=== PATIENT | female | born 1955 | race African-American/Black ===

== ENCOUNTER 2017-08-21 22:03 | Emergency (ER) | payer BC, OTHER ==
[2017-08-21 22:13] VITALS: BMI 29.2
--- NOTE | 2017-08-21 22:31 | DR.GENAD ---
HPI - PCP Primary Care Physician: vanesa - Complaint/Symptoms Chief Complaint:: patient states she fell in a hole a couple years ago and thinks her pain may be related to that. patient states her pain in her right leg and thigh and lower part of her back since today and the pain has gotten severe today. Self Treatment fo Chief Complaint: tylenol - Source History Provided: Patient - Mode of Arrival Mode of Arrival: Ambulatory - Timing Onset of Chief Complaint: 08/21/17 PMH - PMH Past Medical History: Yes Past Medical History: Asthma, Diabetes, Dyslipidemia, Hypertension Past Surgical History: Yes Surgical History: Hysterectomy, Other Past Surgical History Comment: hysterectomy, foot surgery - Family History History of Family Medical Conditions: Yes Family Medical History: Diabetes Mellitus, Cancer, [place], Hypertension - Social History Alcohol Use: None Do you use any recreational Drugs:: No Lives With: Family Lives Where: Home - infectious screening In the last 2 months have you had wt loss of >10#?: NO Have you had fever, night sweats or hemotysis?: No Have you traveled outside the country in the last 6 months?: No Isolation: Standard ROS - Review of Systems Eyes: No Symptoms Reported ENTM: No Symptoms Reported Respiratoy: No Symptoms Reported Cardiovascular: No Symptoms Reported Gastrointestinal/Abdominal: No Symptoms Reported Genitourinary: No Symptoms Reported Neurological: No Symptoms Reported Musculoskeletal: Joint Pain (right hip) Integumentary: No Symptoms Reported Hematologic/Lymphatic: No Symptoms Reported Endocrine: No Symptoms Reported Psychiatric: No Symptoms Reported All Other Systems: Reviewed and Negative PE - Vital Signs Vitals: Temperature 98.5 F Pulse Rate 85 Respiratory Rate 16 Blood Pressure [Left Arm] 153/78 Blood Pressure [Right Arm] 164/90 Blood Pressure 184/107 O2 Sat by Pulse Oximetry 96 - General General Appearance: Alert, In No Apparent Distress - Head Head Exam: Normal Inspection, Atraumatic - Eyes Eye exam: Normal Appearance, PERRL, EOMI - ENT ENT Exam: Normal Exam External Ear Exam: Normal External Inspection TM/Canal Exam: Bilateral Normal Nose Exam: Normal Nose Exam Mouth Exam: Normal Inspection Throat Exam: Normal Inspection - Neck Neck Exam: Normal Inspection, Full ROM - Chest Chest Inspection: Normal Inspection - Respiratory Respiratory Exam: Normal Lung Sounds Bilat Respiratory Exam: Bilateral Clear to Auscultation - Cardiovascular Cardiovascular Exam: Regular Rate, Normal Rhythm - Abdominal Exam Abdominal Exam: Normal Inspection, Normal Bowel Sounds Abdominal Tenderness: negative: RUQ, RLQ, LUQ, LLQ, Epigastrium, Suprapubic, Diffuse, Mild, Moderate, Severe, Other - Extremities Extremities Exam: Normal Inspection, Tenderness (admits to pain of right hip joint, decrease ROM the lower extremity) - Back Back Exam: Normal Inspection, Full ROM - Neurologic Neurological Exam: Alert, Oriented X3, CN II-XII Intact - Psychiatric Psychiatric Exam: Normal Affect, Normal Mood - Skin Skin Exam: Warm, Dry, Intact - Diagnosis Discharge Problem: Osteoarthritis Qualifiers: Osteoarthritis location: hip Osteoarthritis type: unspecified Laterality: right Qualified Code(s): M16.11 - Unilateral primary osteoarthritis, right hip - Discharge Plan Condition: Stable - Follow ups/Referrals Follow ups/Referrals: NFD,None [Primary Care Provider] - 3 days - Instructions
[2017-08-21] MEDS ORDERED: TORADOL 60 MG VIAL IM ONE (22:37)
[2017-08-21] MEDS ORDERED: TORADOL 60 MG VIAL ONE (22:38)
[2017-08-21] MEDS ORDERED: CATAPRES TAB 0.2 MG ONE (22:49)
[2017-08-21] MEDS ORDERED: CATAPRES TAB 0.2 MG PO ONE (22:49)
[2017-08-21 23:36] VITALS: BP 163/77
== END 2017-08-21 23:33 | disposition home or self-care (01) ==
LOC: ER 22:23
DX: M16.11 Unilateral primary osteoarthritis, right hip (principal)
CPT/HCPCS: 96372; 99282; J1885

== ENCOUNTER 2017-10-01 14:36 | Emergency (ER) | payer BC ==
[2017-10-01 14:44] VITALS: BP 177/88; BMI 29.0
--- NOTE | 2017-10-01 16:28 | DR.GENAD ---
HPI - PCP Primary Care Physician: MATTIE - Complaint/Symptoms Chief Complaint Doctors Comments: Patient presented with complaint of a large bump on the left side of neck that has been present for months. Chief Complaint:: PT STATES SHE WAS COMING TO SEE SOMEONE AND DECIDED SHE SHOULD BE SEEN BY A DOCTOR DUE TO A LARGE BUMP TO HER LEFT NECK THAT STARTED OUT SMALL LIKE A BLACK HEAD AND THIS AM IT WAS LARGER AND IT IS CAUSING PAIN , AND THROAT PAIN. - Source History Provided: Patient - Mode of Arrival Mode of Arrival: Ambulatory - Timing Onset of Chief Complaint: 10/01/17 PMH - PMH Past Medical History: Yes Past Medical History: Diabetes, Hypertension Past Surgical History: No Surgical History: Hysterectomy, Other - Family History History of Family Medical Conditions: Yes Family Medical History: Diabetes Mellitus, Cancer, [place], Hypertension - Social History Does patient currently use any type of tobacco product: No Have you used tobacco products in the last 12 months: No Type of Tobacco Use: None Does any household member use tobacco: No Alcohol Use: None Do you use any recreational Drugs:: No Lives With: Family Lives Where: Home - infectious screening In the last 2 months have you had wt loss of >10#?: NO Have you had fever, night sweats or hemotysis?: No Have you traveled outside the country in the last 6 months?: No Isolation: Standard ROS - Review of Systems Constitutional: No Symptoms Reported Eyes: No Symptoms Reported ENTM: No Symptoms Reported Respiratoy: No Symptoms Reported Cardiovascular: No Symptoms Reported Gastrointestinal/Abdominal: No Symptoms Reported Genitourinary: No Symptoms Reported Neurological: No Symptoms Reported Musculoskeletal: No Symptoms Reported Integumentary: No Symptoms Reported Hematologic/Lymphatic: No Symptoms Reported Endocrine: No Symptoms Reported Psychiatric: No Symptoms Reported All Other Systems: Reviewed and Negative PE - Vital Signs Vitals: Temperature 97.2 F Pulse Rate 80 Respiratory Rate 20 Blood Pressure [Left Arm] 163/77 Blood Pressure [Right Arm] 164/90 Blood Pressure 177/88 O2 Sat by Pulse Oximetry 99 - General Limitations: No Limitations General Appearance: Alert, In No Apparent Distress - Head Head Exam: Normal Inspection, Atraumatic - Eyes Eye exam: Normal Appearance, PERRL, EOMI - ENT ENT Exam: Normal Exam External Ear Exam: Normal External Inspection TM/Canal Exam: Bilateral Normal Nose Exam: Normal Nose Exam Mouth Exam: Normal Inspection Throat Exam: Normal Inspection - Neck Neck Exam: Other (nodule left lateral neck with dark discoloration, tender to palpation.) - Chest Chest Inspection: Normal Inspection - Respiratory Respiratory Exam: Normal Lung Sounds Bilat Respiratory Exam: Bilateral Clear to Auscultation - Cardiovascular Cardiovascular Exam: Regular Rate - Abdominal Exam Abdominal Exam: Normal Inspection Abdominal Tenderness: negative: RUQ, RLQ, LUQ, LLQ, Epigastrium, Suprapubic, Diffuse, Mild, Moderate, Severe, Other - Extremities Extremities Exam: Normal Inspection, Full ROM - Back Back Exam: Normal Inspection - Neurologic Neurological Exam: CN II-XII Intact - Psychiatric Psychiatric Exam: Normal Affect - Skin Skin Exam: Warm, Dry, Intact - Diagnosis Discharge Problem: Left cervical lymphadenopathy - Discharge Plan Condition: Stable - Follow ups/Referrals Follow ups/Referrals: Gaston Christensen [Primary Care Provider] - 3 days - Instructions
== END 2017-10-01 16:31 | disposition home or self-care (01) ==
LOC: ER 14:47
DX: R59.0 Localized enlarged lymph nodes (principal)
CPT/HCPCS: 99281; 99282

== ENCOUNTER 2017-10-08 12:05 | Emergency (ER) | payer BC ==
--- NOTE | 2017-10-08 12:14 | DR.AMS ---
HPI - Time Seen Time seen: 12:10 - Complaint Cheif Complaint Doctors Comments: Patient presented to the ED for evaluation due to left arm numbness of acute onset. Upon evaluation in ED she had right sided facial droping (constriction) to the right. She complainted of left arm pain radiating down and chest pain. 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 Upon returning to the ED patient was alert in no distress. She stated that the left arm pain was due to the left lateral cervical adenopathy. PMH - PMH Past Medical History: Diabetes, Hypertension Past Surgical History: No Surgical History: Hysterectomy, Other - Family History Family Medical History: Diabetes Mellitus, Cancer, [place], Hypertension - Social History Do you use any recreational Drugs:: No ROS - Review of Systems Constitutional: See HPI Eyes: No Symptoms Reported ENTM: No Symptoms Reported Respiratoy: No Symptoms Reported Cardiovascular: No Symptoms Reported Gastrointestinal/Abdominal: No Symptoms Reported Genitourinary: No Symptoms Reported Neurological: No Symptoms Reported Musculoskeletal: No Symptoms Reported Integumentary: No Symptoms Reported Hematologic/Lymphatic: No Symptoms Reported Endocrine: No Symptoms Reported Psychiatric: No Symptoms Reported All Other Systems: Reviewed and Negative PE - Vitals Vital Signs: Pulse Pulse Resp BP BP BP Pulse Ox 10/08/17 13:23 89 22 134/100 100 10/08/17 12:05 112 H 20 221/114 97 10/01/17 14:41 177/88 08/21/17 23:35 163/77 04/15/16 12:00 164/90 - General Limitations: No Limitations General Appearance: Alert. negative: In Distress - Head Head Exam: Normal Inspection Head Exam Physical: negative: Laceration, Abrasion, Contusion, Hematoma, Raccoon Eyes, Buckner's Sign, Tenderness of Temporal Artery, CSF Rhinorrhea, CSF Otorrhea, Other - Eyes Eye exam: Normal Appearance Pupils: Regular, Round: Bilateral - ENT ENT Exam: Normal Exam, Normal Oropharynx External Ear Exam: Normal External Inspection TM/Canal Exam: Bilateral Normal Nose Exam: Normal Nose Exam, Sinus Tenderness Mouth Exam: Drooling (contraction of right corner) Throat Exam: Normal Inspection - Neck Neck Exam: Normal Inspection, Full ROM - Chest Chest Inspection: Normal Inspection - Respiratory Respiratory Exam: Normal Lung Sounds Bilat Respiratory Exam: Bilateral Clear to Auscultation - Cardiovascular Cardiovascular Exam: Regular Rate, Normal Rhythm - Abdominal Exam Abdominal Exam: Normal Inspection, Normal Bowel Sounds Abdominal Tenderness: negative: RUQ, RLQ, LUQ, LLQ, Epigastrium, Suprapubic, Diffuse, Mild, Moderate, Severe, Other - Extremities Extremities Exam: Normal Inspection - Back Back Exam: Normal Inspection - Neurological Neurological Exam: Alert, Oriented X3, CN II-XII Intact Course - Reevaluation 1st: Improved - Consultation Called: 13:50 (Dr Villanueva agreed to admit for chest pain protocol) ROR - Labs Reviewed Result Diagrams: 10/08/17 12:38 10/08/17 12:38 Laboratory: WBC 4.4 X10^3/uL (3.6-10.0) 10/08/17 12:38 RBC 4.54 X10^6/uL (3.5-5.4) 10/08/17 12:38 Hgb 13.4 g/dL (12.0-16.0) 10/08/17 12:38 Hct 39.6 % (36.0-47.0) 10/08/17 12:38 MCV 87.1 fL (80.0-100.0) 10/08/17 12:38 MCH 29.5 pg (27.0-34.0) 10/08/17 12:38 MCHC 33.9 g/dL (33.0-35.0) 10/08/17 12:38 RDW 13.2 % (11.6-16.5) 10/08/17 12:38 Plt Count 161 X10^3/uL (150.0-450.0) 10/08/17 12:38 MPV 8.9 fL (7.4-11.0) 10/08/17 12:38 Neut % 55.4 % (42.0-75.0) 10/08/17 12:38 Lymph % 29.3 % (21.0-51.0) 10/08/17 12:38 Bandera % 11.0 % (0.0-13.0) 10/08/17 12:38 Eos % 2.4 % (0.9-2.9) 10/08/17 12:38 Baso % 1.9 % (0.2-1.0) H 10/08/17 12:38 Neut # 2.4 x10^3/uL (2.2-4.8) 10/08/17 12:38 Lymph # 1.3 X10^3/uL (1.3-2.9) 10/08/17 12:38 Bandera # 0.5 x10^3/uL (0.3-0.8) 10/08/17 12:38 Eos # 0.1 x10^3/uL (0.0-0.2) 10/08/17 12:38 Baso # 0.1 X10^3/uL (0.0-0.1) 10/08/17 12:38 Absolute Nucleated RBC 0.0 /100WBC 10/08/17 12:38 INR Target Range - 10/08/17 12:38 INR 1.01 (0.8-1.3) 10/08/17 12:38 PTT 27.3 SECONDS (22.9-36.5) 10/08/17 12:38 PTT Comment - 10/08/17 12:38 Sodium 141 mmol/L (136-145) 10/08/17 12:38 Corrected Sodium 148 mmol/L (136-145) H 10/08/17 12:38 Potassium 4.4 mmol/L (3.5-5.1) 10/08/17 12:38 Chloride 106 mmol/L (98-107) 10/08/17 12:38 Carbon Dioxide 25.7 mmol/L (21-32) 10/08/17 12:38 BUN 18 mg/dL (7-18) 10/08/17 12:38 Creatinine 1.24 mg/dL (0.55-1.02) H 10/08/17 12:38 Est GFR (MDRD) Af Amer 56 (>60) L 10/08/17 12:38 Est GFR (MDRD) Non-Af 47 (>60) L 10/08/17 12:38 Glucose 380 mg/dL (65-99) H 10/08/17 12:38 Calcium 8.8 mg/dL (8.5-10.1) 10/08/17 12:38 Corrected Calcium TNP 10/08/17 12:38 Magnesium 2.1 mg/dL (1.7-2.9) 10/08/17 12:38 Total Bilirubin 0.40 mg/dL (0.2-1.0) 10/08/17 12:38 AST 16 Units/L (15-37) 10/08/17 12:38 ALT 28 Units/L (12-78) 10/08/17 12:38 Alkaline Phosphatase 87 Units/L (46-116) 10/08/17 12:38 Creatine Kinase 71 Units/L (26-192) 10/08/17 12:38 CK-MB (CK-2) 1.0 ng/mL (0-4.0) 10/08/17 12:38 CK/CKMB % Calc 1.4 % (<4) 10/08/17 12:38 Troponin I < 0.02 ng/mL (0-1.5) 10/08/17 12:38 Total Protein 7.2 g/dL (6.4-8.2) 10/08/17 12:38 Albumin 3.5 g/dL (3.4-5.0) 10/08/17 12:38 Globulin 3.7 g/dL (2.5-4.5) 10/08/17 12:38 Albumin/Globulin Ratio 0.9 Ratio (1.1-2.1) L 10/08/17 12:38 - XRAY XRAY Interpreted by: Radiologist (CT Brain w/o: There are no abnormal intra-or extra-axial fluid collections, midline shift, or mass effect. Santiago whie differentation is normal. Partially empty sell. Global cortical involutonal changes are present that are advanced for the patients's stated age. The ventricular system is mildly enlarged but commensurate with the degree of sulcal prominence. Periventricular and supra entricular white matter hypodensity is present that is nonspecific in appearance, but most likely to represent microvascular ischemic changes. Atherosclerotic vascular calcification is present within the carotid siphons and distal vertebral arteries. 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 The imaged paransal sinuses,mastoid air cells, and tympanic spaces are clear.) - Diagnosis Discharge Problem: Lymphadenopathy of right cervical region Chest pain Qualifiers: Chest pain type: unspecified Qualified Code(s): R07.9 - Chest pain, unspecified - Discharge Plan Condition: Stable - Follow ups/Referrals Follow ups/Referrals: Gaston Christensen [Primary Care Provider] - 3 days - Instructions
[2017-10-08 12:17] VITALS: BMI 27.4
[2017-10-08 12:49] LABS: BASOPHILS # (AUTO) 0.1 X10^3/uL (0.0-0.1); BASOPHILS % (AUTO) 1.9 % (0.2-1.0); EOSINOPHILS # (AUTO) 0.1 x10^3/uL (0.0-0.2); EOSINOPHILS % (AUTO) 2.4 % (0.9-2.9); HEMATOCRIT 39.6 % (36.0-47.0); HEMOGLOBIN 13.4 g/dL (12.0-16.0); LYMPHOCYTES # (AUTO) 1.3 X10^3/uL (1.3-2.9); LYMPHOCYTES % (AUTO) 29.3 % (21.0-51.0); MEAN CORPUSCULAR HEMOGLOBIN 29.5 pg (27.0-34.0); MEAN CORPUSCULAR HGB CONC 33.9 g/dL (33.0-35.0); MEAN CORPUSCULAR VOLUME 87.1 fL (80.0-100.0); MEAN PLATELET VOLUME 8.9 fL (7.4-11.0); MONOCYTES # (AUTO) 0.5 x10^3/uL (0.3-0.8); NEUTROPHILS # (AUTO) 2.4 x10^3/uL (2.2-4.8); NEUTROPHILS % (AUTO) 55.4 % (42.0-75.0); PLATELET COUNT 161 X10^3/uL (150.0-450.0); RED BLOOD COUNT 4.54 X10^6/uL (3.5-5.4); RED CELL DISTRIBUTION WIDTH 13.2 % (11.6-16.5); WHITE BLOOD COUNT 4.4 X10^3/uL (3.6-10.0)
--- NOTE | 2017-10-08 12:54 | CT ---
CT HEAD WITHOUT CONTRAST CLINICAL HISTORY: 62-year-old female with left-sided weakness. COMPARISON: CT head 04/14/2016. TECHNIQUE: Multiple, non-contrasted axial CT images were obtained from the skull base to the cranial vertex. Coronal and sagittal reformats were performed. FINDINGS: There are no abnormal intra- or extra-axial fluid collections, midline shift, or mass effec t. Santiago-white differentiation is normal. Partially empty sella. Global cortical involutional changes are present that are advanced for the patient's stated age. The ventricular system is mildly enlarged but commensurate with the degree of sulcal prominence. Periventricular and supraventricular white ma tter hypodensity is present that is nonspecific in appearance, but most likely to represent microvasc ular ischemic changes. Atherosclerotic vascular calcification is present within the carotid siphons a nd distal vertebral arteries. 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 The imaged paranasal sinuses, mastoid air cells, and ty mpanic spaces are clear. IMPRESSION: 1. No definite evidence of an acute intracranial process. If clinical concern persists for acute str yaw, consider MRI/MRA brain. 2. Moderate microvascular white matter ischemic changes, with associated volume loss. Reported By:
[2017-10-08 13:02] LABS: BLOOD UREA NITROGEN 18 mg/dL (7-18); CALCIUM 8.8 mg/dL (8.5-10.1); CARBON DIOXIDE 25.7 mmol/L (21-32); CHLORIDE 106 mmol/L (98-107); COR NA(FOR HYPERGLY) 148 mmol/L (136-145); CREATININE 1.24 mg/dL (0.55-1.02); SODIUM 141 mmol/L (136-145); TROPONIN I < 0.02 ng/mL (0-1.5); eGFR BLACK RACES 56 (>60); eGFR NON BLACK RACES 47 (>60)
[2017-10-08 13:06] LABS: ALANINE AMINOTRANSFERASE 28 Units/L (12-78); ALBUMIN 3.5 g/dL (3.4-5.0); ALKALINE PHOSPHATASE 87 Units/L (46-116); ASPARTATE AMINO TRANSFERASE 16 Units/L (15-37); CKMB % 1.4 % (<4); CREATINE KINASE 71 Units/L (26-192); MAGNESIUM 2.1 mg/dL (1.7-2.9); TOTAL PROTEIN 7.2 g/dL (6.4-8.2)
[2017-10-08] MEDS: HumuLIN R SUBCUT PRN ×2 (13:21→22:45)
[2017-10-08] MEDS ORDERED: NEURONTIN CAP 100 MG PO PRN (14:12)
[2017-10-08] MEDS ORDERED: NAPROSYN PO PRN (14:12)
[2017-10-08] MEDS ORDERED: ROCEPHIN VIAL 1 GM 1 GM in NS 100 ML IV + SPIKE MINIBAG* 100 ML IV SCH (14:15)
[2017-10-08] MEDS ORDERED: CATAPRES TAB 0.1 MG ONE (14:15)
[2017-10-08] MEDS ORDERED: ROCEPHIN VIAL 1 GM ONE (14:15)
[2017-10-08] MEDS: CATAPRES TAB 0.1 MG PO SCH (14:19)
[2017-10-08] MEDS: NORVASC TAB 5 MG PO SCH (15:33)
--- NOTE | 2017-10-08 15:56 | RAD ---
HISTORY: Left-sided weakness Study: Single view of the chest. Comparison: None. Findings: Mild cardiomegaly. No focal consolidations, pleural effusions or pneumothorax. Osseous structures dem onstrate no acute abnormality. IMPRESSION: 1. No acute cardiopulmonary process. Reported By:
[2017-10-08] MEDS ORDERED: XOPENEX 1.25 MG/3 ML NEBULE NEB ONE (16:15)
[2017-10-08] MEDS ORDERED: XYLOCAINE 1 % (PLAIN) ONE (16:46)
--- NOTE | 2017-10-08 17:09 | OR.GENERIC ---
Post-Op Note Generic - Post-Op Note Operative Report: PO note pt has large infected skin cyst Lt side of the neck 2 x 2 cm with associated cellulitis .. debridement and drainage was done at bed side then was packed with iodoform packing . c & s was obtained .Pt is on IV ATB.
[2017-10-08 19:22] LABS: CKMB % 1.5 % (<4); CREATINE KINASE 82 Units/L (26-192); CREATINE KINASE MB 1.2 ng/mL (0-4.0); TROPONIN I < 0.02 ng/mL (0-1.5)
[2017-10-08] MEDS ORDERED: PATIENT'S HOME MEDICATION (Atorvastatin Calcium [Lipitor] 80 MG) PO SCH (21:00)
[2017-10-08] MEDS: SNACK - Diabetic Appropriate PO SCH (22:55)
[2017-10-08] MEDS: LIPITOR TAB 40 MG PO SCH (23:00)
[2017-10-09] MEDS ORDERED: MILK OF MAGNESIA PO PRN (00:38)
[2017-10-09 01:57] LABS: CKMB % 1.1 % (<4); CREATINE KINASE 88 Units/L (26-192); TROPONIN I < 0.02 ng/mL (0-1.5)
[2017-10-09 06:18] LABS: BASOPHILS % (AUTO) 0.3 % (0.2-1.0); EOSINOPHILS # (AUTO) 0.1 x10^3/uL (0.0-0.2); EOSINOPHILS % (AUTO) 1.8 % (0.9-2.9); HEMATOCRIT 37.4 % (36.0-47.0); HEMOGLOBIN 12.8 g/dL (12.0-16.0); LYMPHOCYTES # (AUTO) 1.4 X10^3/uL (1.3-2.9); LYMPHOCYTES % (AUTO) 27.3 % (21.0-51.0); MEAN CORPUSCULAR HEMOGLOBIN 29.6 pg (27.0-34.0); MEAN CORPUSCULAR HGB CONC 34.2 g/dL (33.0-35.0); MEAN CORPUSCULAR VOLUME 86.6 fL (80.0-100.0); MEAN PLATELET VOLUME 9.1 fL (7.4-11.0); MONOCYTES # (AUTO) 0.6 x10^3/uL (0.3-0.8); MONOCYTES % (AUTO) 11.6 % (0.0-13.0); PLATELET COUNT 161 X10^3/uL (150.0-450.0); RED BLOOD COUNT 4.32 X10^6/uL (3.5-5.4); RED CELL DISTRIBUTION WIDTH 12.9 % (11.6-16.5); WHITE BLOOD COUNT 5.1 X10^3/uL (3.6-10.0)
[2017-10-09 07:09] LABS: ALANINE AMINOTRANSFERASE 25 Units/L (12-78); ALBUMIN 3.1 g/dL (3.4-5.0); ALKALINE PHOSPHATASE 73 Units/L (46-116); ASPARTATE AMINO TRANSFERASE 16 Units/L (15-37); BLOOD UREA NITROGEN 19 mg/dL (7-18); CALCIUM 8.8 mg/dL (8.5-10.1); CARBON DIOXIDE 25.1 mmol/L (21-32); CHLORIDE 106 mmol/L (98-107); CHOLESTEROL 204 mg/dL (0-200); COR CA(FOR HYPOALB) 9.5 mg/dL (8.5-10.1); CREATININE 0.84 mg/dL (0.55-1.02); HDL CHOLESTEROL 51 mg/dL (40-60); SODIUM 141 mmol/L (136-145); TOTAL PROTEIN 6.6 g/dL (6.4-8.2); TRIGLYCERIDES 92 mg/dL (0-150); eGFR BLACK RACES > 60 (>60); eGFR NON BLACK RACES > 60 (>60)
--- NOTE | 2017-10-09 07:22 | RAD ---
Examination: AP chest History: Chest pain Comparison 10/08/2017 Findings: Continued normal heart size with no evidence for pulmonary infiltrate, pneumothorax or pleu ral fluid. Impression: No acute chest findings. Reported By:
[2017-10-09] MEDS: CATAPRES TAB 0.1 MG PO SCH (08:55)
[2017-10-09] MEDS: NORVASC TAB 5 MG PO SCH (08:55)
[2017-10-09] MEDS: ROCEPHIN VIAL 1 GM 1 GM in NS 100 ML IV 100 ML IV SCH (08:55)
[2017-10-09] MEDS: ASPIRIN EC 81 MG PO SCH (08:55)
[2017-10-09] MEDS ORDERED: PATIENT'S HOME MEDICATION (Aspirin [Aspirin] 81 MG) PO SCH (09:00)
--- NOTE | 2017-10-09 21:27 | DR.H&P ---
H&P - History & Physical for Day of: H&P Date: 10/08/17 - Chief Complaint Chief Complaint: chest pain, left arm pain, cyst to left side of neck - Allergies Allergies/Adverse Reactions: Allergies Allergy/AdvReac Type Severity Reaction Status Date / Time alcohol Allergy Verified 10/01/17 14:40 - History of Present Illness History of Present Illness: is a 62 year old patient of ours who presented to the emergency room with complaints of left arm numbness, with acute onset. Patient is complaining of left arm pain that is radiating down her arm, with associated chest pain. Patient stated that the left arm pain was due to left lateral cervical adenopathy. Patient reports that two years ago she had a TIA and that 15 years ago she had a stroke that affected her right side. Upon examination, right side of the mouth is noted with drooping, drooling, and contraction of the right corner. On arrival, vitals were 98.7, 82, 18, 95%RA, 148/93. Labs were obtained. Abnormal lab values include the following: Baso% 1.9 , Corrected Sodium 148, Creatinine 1.24, GFR(AA) 56, GFR(non) 47, Glucose 380, A /G Ratio 0.9. Cardiac enzymes were negative. A chest xray was obtained. EKG reported Sinus rhythm. Heart rate=93. It reported no acute cardiopulmonary process. A brain CT was obtained. It reported no definite evidence of an acute intracranial process. If clinical concern persists for acute stroke, consider MRI/MRA brain. Moderate microvascular white matter changes, with associated volume loss. She was given Rocephin 1gm iv in the ER. We admitted patient for further treatment and evaluation. We plan to consult for I&D of the infected cyst to the left side of the neck. We plan to obtain serial cardiac enzymes and EKGs. We will follow up with AM labs and continue to monitor patient. - Past Medical History Past Medical History: Diabetes, Dyslipidemia, Hypertension Additional Medical History: Cataracts, Tinnitus, Ear Infections, Diverticulosis , Constipation - Past Surgical History Surgical History: Hysterectomy Additional Surgical History: Carpal Tunnel Right Arm - Family History Family Medical History: Diabetes Mellitus, Cancer, [place], Coronary Artery Disease, Heart Failure, Sudden Cardiac , Hypertension - Social History Does patient currently use any type of tobacco product: No Have you used tobacco products in the last 12 months: No Type of Tobacco Use: None Does any household member use tobacco: No Alcohol Use: None Drug Use: None - Review of Systems Constitutional: See HPI, Weakness Eyes: No Symptoms Reported. denies: See HPI, Pain, Vision Change, Conjunctivae Inflammation, Eyelid Inflammation, Redness, Other ENT: No Symptoms Reported. denies: See HPI, Ear Pain, Ear Discharge, Nose Pain , Nose Discharge, Nose Congestion, Mouth Pain, Mouth Swelling, Throat Pain, Throat Swelling, Other Respiratory: No Symptoms Reported. denies: See HPI, Cough, Dry, Shortness of Breath, Hemoptysis, SOB with Excertion, Pleuritic Pain, Sputum, Wheezing, Other Cardiovascular: Chest Pain, See HPI Gastrointestinal: No Symptoms Reported Genitourinary: No Symptoms Reported. denies: See HPI, Dysuria, Frequency, Incontinence, Hematuria, Retention, Other Musculoskeletal: Arm Pain (left arm pain ) Skin: Wound (cyst to left side of neck ) Neurological: See HPI, Weakness, Other (right sided facial drooping, drooling, and constriction ) - Physical Exam Vital Signs: Temperature 98.0 F Pulse Rate [Right Brachial] 61 Pulse Rate [Apical] 81 Pulse Rate 112 Respiratory Rate 20 Blood Pressure [Left Arm] 170/85 Blood Pressure [Right Arm] 163/79 Blood Pressure 221/114 O2 Sat by Pulse Oximetry 99 Oriented: Normal Eyes: Normal. negative: Blurred Vision, Diplopia, Discharge, Pain, Redness, Photophobia, Other Ear: Normal. negative: Right, Left, Swelling, Ecchymosis, Hemotypanum, Abrasion , Laceration Nose: Normal. negative: Injected, Discharge, Blood, Other Throat: Normal Respiratory: Clear Throughout Cardiovascular: Normal Auscultation: Bowel Sounds: Normal Palpation: Normal Tenderness: Normal Skin: Wound (cyst to left side neck ) Musculoskeletal: Left, Arm (weakness and pain ) Psychiatric: Normal Mood Description: Calm Affect: Normal Speech Pattern: Clear - Assessment/Plan (1) Chest pain Qualifiers: Chest pain type: unspecified Qualified Code(s): R07.9 - Chest pain, unspecified Status: Acute Plan: serial cardiac enzymes and ekg, supplemental oxygen, telemetry, continue to monitor (2) Left cervical lymphadenopathy Status: Acute Plan: consult for I&D, rocephin 1gm iv daily, continue to monitor (3) Right sided weakness Status: Acute Plan: continue to monitor
[2017-10-09] MEDS: HumuLIN R SUBCUT PRN (21:37)
[2017-10-09] MEDS: LIPITOR TAB 40 MG PO SCH (21:38)
[2017-10-10] MEDS: SNACK - Diabetic Appropriate PO SCH (00:27)
[2017-10-10 06:24] LABS: BASOPHILS % (AUTO) 0.4 % (0.2-1.0); EOSINOPHILS # (AUTO) 0.2 x10^3/uL (0.0-0.2); EOSINOPHILS % (AUTO) 4.1 % (0.9-2.9); HEMATOCRIT 39.5 % (36.0-47.0); HEMOGLOBIN 13.3 g/dL (12.0-16.0); LYMPHOCYTES # (AUTO) 2.3 X10^3/uL (1.3-2.9); MEAN CORPUSCULAR HEMOGLOBIN 29.3 pg (27.0-34.0); MEAN CORPUSCULAR HGB CONC 33.7 g/dL (33.0-35.0); MEAN CORPUSCULAR VOLUME 86.9 fL (80.0-100.0); MEAN PLATELET VOLUME 8.9 fL (7.4-11.0); MONOCYTES # (AUTO) 0.4 x10^3/uL (0.3-0.8); MONOCYTES % (AUTO) 9.8 % (0.0-13.0); NEUTROPHILS # (AUTO) 1.5 x10^3/uL (2.2-4.8); NEUTROPHILS % (AUTO) 34.7 % (42.0-75.0); PLATELET COUNT 173 X10^3/uL (150.0-450.0); RED BLOOD COUNT 4.54 X10^6/uL (3.5-5.4); RED CELL DISTRIBUTION WIDTH 12.8 % (11.6-16.5); WHITE BLOOD COUNT 4.5 X10^3/uL (3.6-10.0)
[2017-10-10 06:45] LABS: ALANINE AMINOTRANSFERASE 25 Units/L (12-78); ALKALINE PHOSPHATASE 75 Units/L (46-116); ASPARTATE AMINO TRANSFERASE 18 Units/L (15-37); BLOOD UREA NITROGEN 16 mg/dL (7-18); CALCIUM 8.6 mg/dL (8.5-10.1); CARBON DIOXIDE 25.6 mmol/L (21-32); CHLORIDE 108 mmol/L (98-107); COR CA(FOR HYPOALB) 9.4 mg/dL (8.5-10.1); CREATININE 0.68 mg/dL (0.55-1.02); SODIUM 141 mmol/L (136-145); TOTAL PROTEIN 6.6 g/dL (6.4-8.2); eGFR BLACK RACES > 60 (>60); eGFR NON BLACK RACES > 60 (>60)
[2017-10-10] MEDS: ROCEPHIN VIAL 1 GM 1 GM in NS 100 ML IV 100 ML IV SCH (09:32)
[2017-10-10] MEDS: CATAPRES TAB 0.1 MG PO SCH (09:32)
[2017-10-10] MEDS: ASPIRIN EC 81 MG PO SCH (09:32)
[2017-10-10] MEDS: NORVASC TAB 5 MG PO SCH (09:32)
[2017-10-10 16:58] VITALS: BP 109/58
--- NOTE | 2017-10-10 17:56 | PCM.PROG ---
Progress Note - Progress Note for Day of Date: 10/09/17 - Subjective Subjective: IS ALERT AND ORIENTED, SITTING UP IN BED ON MORNING ROUNDS. SHE CONTINUES WITH COMPLAINTS OF PAIN TO THE LEFT SIDE NECK AND GENERALIZED WEAKNESS. ON EXAMINATION, THERE IS A DRESSING NOTED TO LEFT SIDE NECK. IT IS DRY AND INTACT. HEART IS REGULAR IN RATE AND RHYTHM. BILATERAL LUNGS ARE NOTED TO BE CLEAR TO AUSCULTATION. ABDOMEN IS ROUND, SOFT, AND NON- TENDER WITH NORMAL BOWEL SOUNDS NOTED TO ALL QUADRANTS. NORMAL RANGE OF MOTION NOTED TO LEFT UPPER AND LOWER EXTREMITY. MILD WEAKNESS TO RIGHT SIDE EXTREMITIES. HER VITALS THIS MORNING ARE 97.8-64-20-100%-140/78. LABS WERE OBTAINED THIS MORNING. SHE REMAINS HEMODYNAMICALLY STABLE. CARDIAC ENZYMES AND EKGS HAVE BEEN NORMAL. TODAY, WE WILL CONTINUE TO MONITOR PATIENT ON TELEMETRY. WE PLAN TO FOLLOW UP WITH AM LABS AND CHEST XRAY AND CONTINUE TO MONITOR PATIENT. - Past Medical Family Social History Past Med/Fam/Surg Hx: No changes since H&P Allergies: Allergies alcohol Allergy (Verified 10/01/17 14:40) - Review of Systems ROS: No change since H&P - Vital Signs and I&O's Vital Signs: Temperature 97.9 F Pulse Rate [Right Brachial] 65 Pulse Rate [Apical] 81 Pulse Rate 112 Respiratory Rate 20 Blood Pressure [Left Arm] 170/85 Blood Pressure [Right Arm] 109/58 Blood Pressure 221/114 O2 Sat by Pulse Oximetry 96 Intake and Output: Intake & Output 10/08/17 10/09/17 10/10/17 10/11/17 11:59 11:59 11:59 11:59 Intake Total 1020 1400 360 Balance 1020 1400 360 - Physical Exam Oriented: Normal Eyes: Normal. negative: Blurred Vision, Diplopia, Discharge, Pain, Redness, Photophobia, Other Ear: Normal. negative: Right, Left, Swelling, Ecchymosis, Hemotypanum, Abrasion , Laceration Nose: Normal. negative: Injected, Discharge, Blood, Other Throat: Normal Respiratory: Normal Cardiovascular: Normal : Normal Auscultation: Bowel Sounds: Normal Palpation: Normal Tenderness: Normal Skin: Wound (cyst to left side neck ) Musculoskeletal: Left, Arm (weakness and pain ) Psychiatric: Normal Mood Description: Calm Affect: Normal Speech Pattern: Clear, Appropriate - Laboratory and Diagnostics Result Diagrams: 10/10/17 05:40 10/10/17 05:40 Labs: 10/08/17 17:00 Neck Gram Stain - Final 10/08/17 17:00 Neck Wound Culture - Preliminary Laboratory WBC 4.5 X10^3/uL (3.6-10.0) 10/10/17 05:40 RBC 4.54 X10^6/uL (3.5-5.4) 10/10/17 05:40 Hgb 13.3 g/dL (12.0-16.0) 10/10/17 05:40 Hct 39.5 % (36.0-47.0) 10/10/17 05:40 MCV 86.9 fL (80.0-100.0) 10/10/17 05:40 MCH 29.3 pg (27.0-34.0) 10/10/17 05:40 MCHC 33.7 g/dL (33.0-35.0) 10/10/17 05:40 RDW 12.8 % (11.6-16.5) 10/10/17 05:40 Plt Count 173 X10^3/uL (150.0-450.0) 10/10/17 05:40 MPV 8.9 fL (7.4-11.0) 10/10/17 05:40 Neut % 34.7 % (42.0-75.0) L 10/10/17 05:40 Lymph % 51.0 % (21.0-51.0) 10/10/17 05:40 [place] % 9.8 % (0.0-13.0) 10/10/17 05:40 Eos % 4.1 % (0.9-2.9) H 10/10/17 05:40 Baso % 0.4 % (0.2-1.0) 10/10/17 05:40 Neut # 1.5 x10^3/uL (2.2-4.8) L 10/10/17 05:40 Lymph # 2.3 X10^3/uL (1.3-2.9) 10/10/17 05:40 [place] # 0.4 x10^3/uL (0.3-0.8) 10/10/17 05:40 Eos # 0.2 x10^3/uL (0.0-0.2) 10/10/17 05:40 Baso # 0.0 X10^3/uL (0.0-0.1) 10/10/17 05:40 Absolute Nucleated RBC 0.1 /100WBC 10/10/17 05:40 INR Target Range - 10/09/17 05:15 INR 0.99 (0.8-1.3) 10/09/17 05:15 PTT 27.3 SECONDS (22.9-36.5) 10/08/17 12:38 PTT Comment - 10/08/17 12:38 Sodium 141 mmol/L (136-145) 10/10/17 05:40 Corrected Sodium TNP 10/10/17 05:40 Potassium 3.8 mmol/L (3.5-5.1) 10/10/17 05:40 Chloride 108 mmol/L (98-107) H 10/10/17 05:40 Carbon Dioxide 25.6 mmol/L (21-32) 10/10/17 05:40 BUN 16 mg/dL (7-18) 10/10/17 05:40 Creatinine 0.68 mg/dL (0.55-1.02) 10/10/17 05:40 Est GFR (MDRD) Af Amer > 60 (>60) 10/10/17 05:40 Est GFR (MDRD) Non-Af > 60 (>60) 10/10/17 05:40 Glucose 95 mg/dL (65-99) 10/10/17 05:40 POC Glucose (mg/dL) 127 mg/dL (65-99) H 10/10/17 11:07 Calcium 8.6 mg/dL (8.5-10.1) 10/10/17 05:40 Corrected Calcium 9.4 mg/dL (8.5-10.1) 10/10/17 05:40 Magnesium 2.1 mg/dL (1.7-2.9) 10/08/17 12:38 Total Bilirubin 0.50 mg/dL (0.2-1.0) 10/10/17 05:40 AST 18 Units/L (15-37) 10/10/17 05:40 ALT 25 Units/L (12-78) 10/10/17 05:40 Alkaline Phosphatase 75 Units/L (46-116) 10/10/17 05:40 Creatine Kinase 88 Units/L (26-192) 10/09/17 00:30 CK-MB (CK-2) 1.0 ng/mL (0-4.0) 10/09/17 00:30 CK/CKMB % Calc 1.1 % (<4) 10/09/17 00:30 Troponin I < 0.02 ng/mL (0-1.5) 10/09/17 00:30 Total Protein 6.6 g/dL (6.4-8.2) 10/10/17 05:40 Albumin 3.0 g/dL (3.4-5.0) L 10/10/17 05:40 Globulin 3.6 g/dL (2.5-4.5) 10/10/17 05:40 Albumin/Globulin Ratio 0.8 Ratio (1.1-2.1) L 10/10/17 05:40 Triglycerides 92 mg/dL (0-150) 10/09/17 05:15 Cholesterol 204 mg/dL (0-200) H 10/09/17 05:15 LDL Cholesterol, Calc 135 mg/dL (0-100) H 10/09/17 05:15 HDL Cholesterol 51 mg/dL (40-60) 10/09/17 05:15 Cholesterol/HDL Ratio 4.0 (0.0-5.0) 10/09/17 05:15 - Plan (1) Chest pain Status: Acute Qualifiers: Chest pain type: unspecified Qualified Code(s): R07.9 - Chest pain, unspecified Plan: serial cardiac enzymes and ekg, supplemental oxygen, telemetry, continue to monitor (2) Left cervical lymphadenopathy Status: Acute Plan: consult for I&D, rocephin 1gm iv daily, continue to monitor (3) Right sided weakness Status: Acute Plan: continue to monitor
== END 2017-10-10 15:25 | disposition home or self-care (01) ==
LOC: ER 12:05 → MED/SURG 14:25
PROVIDERS: ADMIT Internal Medicine; ATTEND Internal Medicine
PROC: 0H91XZZ Drainage of Face Skin, External Approach (ICD-10-PCS; principal; 2017-10-08)
DX: R07.89 Other chest pain (principal); L03.221 Cellulitis of neck; R59.0 Localized enlarged lymph nodes; R94.31 Abnormal electrocardiogram [ECG] [EKG]; R53.1 Weakness; L72.8 Other follicular cysts of the skin and subcutaneous tissue
CPT/HCPCS: 36415; 70450; 71045; 80053; 80061; 82550; 82553; 83735; 84484; 85025; 85610; 85730; 87070; 87075; 87205; 93005; 94760; 96365; 96372; 96374; 99284; A4216; A4222; G0378; J0696; J1815; J2001

== ENCOUNTER → 2017-11-01 | Outpatient (CLI) | payer BC ==
[2017-10-10 16:58] VITALS: BP 109/58
--- NOTE | 2017-11-02 08:52 | VAS ---
Carotid Doppler Ultrasound Examination Clinical information Angina and chest pain. Technique: Grayscale and Doppler images of the carotid arteries were performed. Findings Grayscale and color Doppler ultrasound examination of the carotid and vertebral artery systems bilate rally. Maximum peak systolic velocity (PSV) / end diastolic velocity (EDV) measurements were obtained . Right Carotid System Right Common Carotid Artery (RCCA): 59 cm/s. Ndhe-xp-utbgsuor carotid atherosclerosis. Right Internal Carotid Artery (AMY): 45 cm/s. Izqq-vx-eyrtvlth carotid atherosclerosis. Right External Carotid Artery (LECA): 101 cm/s. Ncyc-az-xgegdunu carotid atherosclerosis and intima l wall thickening appreciated. Right Vertebral Artery (RVA): Antegrade flow with normal waveform. Left Carotid System Left Common Carotid Artery (LCCA): 71 cm/s. Zvbg-je-mhusfrew carotid atherosclerosis. Left Internal Carotid Artery (LICA): 53 cm/s. Furb-kt-rpjbdbix carotid atherosclerosis observed wit h associated intimal wall thickening. Left External Carotid Artery (LECA): 73 cm/s. Bwvi-rf-knqfaief atherosclerosis. Left Vertebral Artery (LVA): Antegrade flow with normal waveform. Impression Society of Radiologists in Ultrasound (SRU) consensus statement (Radiology 2003; 229:340-346. DOI 10. 1148/radiol.[id number]) was used to estimate internal carotid artery stenosis. 1. Right internal carotid artery: No evidence for high-grade stenosis or vascular occlusion. Mild- to-moderate carotid atherosclerosis and carotid intimal wall thickening appreciated. 2. Left internal carotid artery: No evidence for high-grade stenosis or vascular occlusion. Mild-to -moderate carotid atherosclerosis and carotid intimal wall thickening appreciated. 3. Vertebral arteries: Antegrade flow with normal waveforms bilaterally. Reported By:
== END ==
LOC: RAD 13:38
PROVIDERS: ATTEND Internal Medicine
DX: I20.8 Other forms of angina pectoris (principal); R42 Dizziness and giddiness; R06.02 Shortness of breath; I10 Essential (primary) hypertension; E11.9 Type 2 diabetes mellitus without complications
CPT/HCPCS: 93306; 93880

== ENCOUNTER → 2017-11-16 | Outpatient (CLI) | payer BC ==
[~2017-11-16] MED LIST: LEXISCAN IV ONE
== END ==
LOC: RAD 08:26
PROVIDERS: ATTEND Internal Medicine
DX: I20.9 Angina pectoris, unspecified (principal); R42 Dizziness and giddiness; R06.02 Shortness of breath; I10 Essential (primary) hypertension; E11.9 Type 2 diabetes mellitus without complications; R51 Headache
CPT/HCPCS: 78452; 93017; A4222; A9502; J2785

== ENCOUNTER 2017-11-22 15:52 | Inpatient (IN) | payer BC ==
[2017-11-22 17:28] VITALS: BMI 28.5
[2017-11-22 18:24] LABS: BASOPHILS # (AUTO) 0.1 X10^3/uL (0.0-0.1); EOSINOPHILS # (AUTO) 0.3 x10^3/uL (0.0-0.2); EOSINOPHILS % (AUTO) 3.3 % (0.9-2.9); HEMATOCRIT 40.3 % (36.0-47.0); HEMOGLOBIN 13.6 g/dL (12.0-16.0); LYMPHOCYTES # (AUTO) 2.2 X10^3/uL (1.3-2.9); LYMPHOCYTES % (AUTO) 28.9 % (21.0-51.0); MEAN CORPUSCULAR HEMOGLOBIN 29.8 pg (27.0-34.0); MEAN CORPUSCULAR HGB CONC 33.9 g/dL (33.0-35.0); MEAN CORPUSCULAR VOLUME 87.9 fL (80.0-100.0); MEAN PLATELET VOLUME 8.6 fL (7.4-11.0); MONOCYTES # (AUTO) 0.7 x10^3/uL (0.3-0.8); MONOCYTES % (AUTO) 9.5 % (0.0-13.0); NEUTROPHILS # (AUTO) 4.4 x10^3/uL (2.2-4.8); NEUTROPHILS % (AUTO) 57.3 % (42.0-75.0); PLATELET COUNT 198 X10^3/uL (150.0-450.0); RED BLOOD COUNT 4.58 X10^6/uL (3.5-5.4); RED CELL DISTRIBUTION WIDTH 13.5 % (11.6-16.5); WHITE BLOOD COUNT 7.7 X10^3/uL (3.6-10.0)
[2017-11-22 18:36] LABS: ALANINE AMINOTRANSFERASE 24 Units/L (12-78); ALBUMIN 3.5 g/dL (3.4-5.0); ALKALINE PHOSPHATASE 101 Units/L (46-116); ASPARTATE AMINO TRANSFERASE 20 Units/L (15-37); BLOOD UREA NITROGEN 17 mg/dL (7-18); CALCIUM 8.9 mg/dL (8.5-10.1); CARBON DIOXIDE 28.2 mmol/L (21-32); CHLORIDE 105 mmol/L (98-107); COR NA(FOR HYPERGLY) 143 mmol/L (136-145); CREATININE 0.88 mg/dL (0.55-1.02); SODIUM 139 mmol/L (136-145); TOTAL PROTEIN 7.9 g/dL (6.4-8.2); eGFR BLACK RACES > 60 (>60); eGFR NON BLACK RACES > 60 (>60)
--- NOTE | 2017-11-22 18:57 | RAD ---
Of PA and lateral chest Indication: Cough. Comparison: 10/09/2017. Findings: Heart size is at upper limits of normal, unchanged. No focal airspace opacity, pleural effu brisa or pneumothorax. Subsegmental atelectasis/scarring within the left lung base is again noted. No acute osseous abnormality. Impression: No acute cardiopulmonary abnormality or change from prior exam. Reported By:
[2017-11-22] MEDS ORDERED: NS 1/2 1000 ML IV 1,000 ML IV ONE (19:45)
[2017-11-22] MEDS: ZITHROMAX INJ 500 MG VIAL 500 MG in NS 250 ML IV 250 ML IV SCH (20:07)
[2017-11-22] MEDS: HumuLIN R SUBCUT PRN (20:09)
[2017-11-22] MEDS: TUSSIONEX PENNKINETIC SUSP PO PRN (20:22)
[2017-11-22] MEDS: NS 1/2 1000 ML IV 1,000 ML IV SCH (20:24)
[2017-11-22] MEDS ORDERED: PATIENT'S HOME MEDICATION (Atorvastatin Calcium [Lipitor] 80 MG) PO SCH (21:00)
[2017-11-22] MEDS ORDERED: DUONEB 0.5 MG/3 MG NEB SCH (21:00)
[2017-11-22] MEDS ORDERED: PULMICORT NEB TX 0.5 MG NEB SCH (21:00)
[2017-11-22] MEDS: SNACK - Diabetic Appropriate PO SCH (21:00)
[2017-11-22] MEDS: DUONEB 0.5 MG/3 MG NEB SCH (21:07)
[2017-11-22] MEDS: PULMICORT NEB TX 0.5 MG NEB SCH (21:08)
[2017-11-22] MEDS: LEVAQUIN PREMIX IV 750 MG 750 MG/150 ML BAG IV SCH (22:00)
[2017-11-22] MEDS: ROBITUSSIN DM PO SCH (22:00)
[2017-11-22] MEDS: LIPITOR TAB 40 MG PO SCH (22:01)
[2017-11-23] MEDS: DUONEB 0.5 MG/3 MG NEB SCH ×3 (01:04→09:09)
[2017-11-23 05:54] LABS: ALANINE AMINOTRANSFERASE 24 Units/L (12-78); ALBUMIN 3.1 g/dL (3.4-5.0); ALKALINE PHOSPHATASE 89 Units/L (46-116); ASPARTATE AMINO TRANSFERASE 17 Units/L (15-37); BLOOD UREA NITROGEN 12 mg/dL (7-18); CALCIUM 8.4 mg/dL (8.5-10.1); CARBON DIOXIDE 25.5 mmol/L (21-32); CHLORIDE 103 mmol/L (98-107); COR CA(FOR HYPOALB) 9.1 mg/dL (8.5-10.1); COR NA(FOR HYPERGLY) 142 mmol/L (136-145); CREATININE 0.74 mg/dL (0.55-1.02); SODIUM 139 mmol/L (136-145); TOTAL PROTEIN 7.2 g/dL (6.4-8.2); eGFR BLACK RACES > 60 (>60); eGFR NON BLACK RACES > 60 (>60)
[2017-11-23] MEDS: HumuLIN R SUBCUT PRN ×3 (06:11→22:44)
[2017-11-23 06:19] LABS: BASOPHILS % (AUTO) 0.5 % (0.2-1.0); EOSINOPHILS # (AUTO) 0.2 x10^3/uL (0.0-0.2); EOSINOPHILS % (AUTO) 3.8 % (0.9-2.9); HEMATOCRIT 37.2 % (36.0-47.0); HEMOGLOBIN 12.5 g/dL (12.0-16.0); LYMPHOCYTES # (AUTO) 1.8 X10^3/uL (1.3-2.9); LYMPHOCYTES % (AUTO) 32.8 % (21.0-51.0); MEAN CORPUSCULAR HEMOGLOBIN 29.6 pg (27.0-34.0); MEAN CORPUSCULAR HGB CONC 33.7 g/dL (33.0-35.0); MEAN CORPUSCULAR VOLUME 87.8 fL (80.0-100.0); MEAN PLATELET VOLUME 9.2 fL (7.4-11.0); MONOCYTES # (AUTO) 0.8 x10^3/uL (0.3-0.8); NEUTROPHILS # (AUTO) 2.6 x10^3/uL (2.2-4.8); NEUTROPHILS % (AUTO) 48.9 % (42.0-75.0); PLATELET COUNT 160 X10^3/uL (150.0-450.0); RED BLOOD COUNT 4.23 X10^6/uL (3.5-5.4); RED CELL DISTRIBUTION WIDTH 13.2 % (11.6-16.5); WHITE BLOOD COUNT 5.4 X10^3/uL (3.6-10.0)
--- NOTE | 2017-11-23 07:01 | RAD ---
HISTORY: Cough Study: Chest AP portable Comparison: 11/22/2017 Findings: The heart is enlarged. No congestive heart failure is noted. No acute alveolar infiltrates or pleural effusions are identified. The bony thorax is unremarkable. IMPRESSION: Moderate cardiomegaly without congestive heart failure No infiltrates Reported By:
[2017-11-23] MEDS: ROBITUSSIN DM PO SCH ×4 (08:59→21:43)
[2017-11-23] MEDS: ZITHROMAX INJ 500 MG VIAL 500 MG in NS 250 ML IV 250 ML IV SCH (08:59)
[2017-11-23] MEDS: CATAPRES TAB 0.1 MG PO SCH (08:59)
[2017-11-23] MEDS: ASPIRIN 81 MG CHEWTAB PO SCH (08:59)
[2017-11-23] MEDS: NORVASC TAB 5 MG PO SCH (08:59)
[2017-11-23] MEDS: LEVAQUIN PREMIX IV 750 MG 750 MG/150 ML BAG IV SCH (08:59)
[2017-11-23] MEDS ORDERED: PATIENT'S HOME MEDICATION (Aspirin [Aspirin] 81 MG) PO SCH (09:00)
[2017-11-23] MEDS: PULMICORT NEB TX 0.5 MG NEB SCH ×2 (09:09→21:06)
[2017-11-23] MEDS ORDERED: VISTARIL PO PRN (09:59)
[2017-11-23] MEDS: NS 1/2 1000 ML IV 1,000 ML IV SCH ×2 (11:09→18:11)
[2017-11-23] MEDS: XOPENEX 1.25 MG/3 ML NEBULE NEB SCH ×3 (12:05→21:06)
[2017-11-23] MEDS ORDERED: NS 1/2 1000 ML IV 1,000 ML IV ONE (18:07)
[2017-11-23] MEDS: SNACK - Diabetic Appropriate PO SCH (20:30)
[2017-11-23] MEDS: LIPITOR TAB 40 MG PO SCH (21:44)
--- NOTE | 2017-11-24 06:06 | RAD ---
HISTORY: Shortness of breath Study: Chest AP portable Comparison: 11/23/2017 Findings: Heart is enlarged. No congestive heart failure is noted. The aorta is calcified. The lung mays are clear. No pleural effusions are identified. The bony thorax is unremarkable. IMPRESSION: Cardiomegaly without congestive heart failure No infiltrates Reported By:
[2017-11-24 06:27] LABS: BASOPHILS % (AUTO) 0.5 % (0.2-1.0); EOSINOPHILS # (AUTO) 0.2 x10^3/uL (0.0-0.2); EOSINOPHILS % (AUTO) 4.2 % (0.9-2.9); HEMATOCRIT 36.7 % (36.0-47.0); HEMOGLOBIN 12.5 g/dL (12.0-16.0); LYMPHOCYTES # (AUTO) 1.6 X10^3/uL (1.3-2.9); LYMPHOCYTES % (AUTO) 33.5 % (21.0-51.0); MEAN CORPUSCULAR HEMOGLOBIN 29.7 pg (27.0-34.0); MEAN CORPUSCULAR VOLUME 87.3 fL (80.0-100.0); MEAN PLATELET VOLUME 8.5 fL (7.4-11.0); MONOCYTES # (AUTO) 0.6 x10^3/uL (0.3-0.8); MONOCYTES % (AUTO) 12.5 % (0.0-13.0); NEUTROPHILS # (AUTO) 2.4 x10^3/uL (2.2-4.8); NEUTROPHILS % (AUTO) 49.3 % (42.0-75.0); PLATELET COUNT 194 X10^3/uL (150.0-450.0); RED BLOOD COUNT 4.21 X10^6/uL (3.5-5.4); RED CELL DISTRIBUTION WIDTH 13.5 % (11.6-16.5); WHITE BLOOD COUNT 4.8 X10^3/uL (3.6-10.0)
[2017-11-24 06:48] LABS: ALANINE AMINOTRANSFERASE 22 Units/L (12-78); ALBUMIN 3.2 g/dL (3.4-5.0); ALKALINE PHOSPHATASE 86 Units/L (46-116); ASPARTATE AMINO TRANSFERASE 13 Units/L (15-37); BLOOD UREA NITROGEN 11 mg/dL (7-18); CALCIUM 8.5 mg/dL (8.5-10.1); CHLORIDE 105 mmol/L (98-107); COR CA(FOR HYPOALB) 9.1 mg/dL (8.5-10.1); COR NA(FOR HYPERGLY) 143 mmol/L (136-145); CREATININE 0.68 mg/dL (0.55-1.02); SODIUM 141 mmol/L (136-145); TOTAL PROTEIN 7.1 g/dL (6.4-8.2); eGFR BLACK RACES > 60 (>60); eGFR NON BLACK RACES > 60 (>60)
--- NOTE | 2017-11-24 08:24 | DR.H&P ---
H&P - History & Physical for Day of: H&P Date: 11/22/17 - Chief Complaint Chief Complaint: ccc, fever - Allergies Allergies/Adverse Reactions: Allergies Allergy/AdvReac Type Severity Reaction Status Date / Time alcohol Allergy Verified 11/22/17 16:26 - History of Present Illness History of Present Illness: 62 BF DIRECT ADMIT FROM DR BRONSON OFFICE WITH CO CCC AND FEVER WITH WHEEZING AND SOB FOR SEVERAL DAYS. PT STATES SHE HAD HTN, DM , OA. PT STATES SHE HAS TAKEN PO ANTIBIOTICS WITHOUT IMPROVEMENT.PT STATES HER BLOOD SUGAR WAS GREATER THAN 600 ONE DAY AGO. PT IS CURRENTLY ON INSULIN FOR BLOOD SUGAR CONTROL. PT ADMITTED FOR RESP THERAPY AND EVALUATION OF SOB, CCC, ELEVATED BLOOD SUGAR. - Past Medical History Past Medical History: Diabetes, Dyslipidemia, Hypertension Additional Medical History: Cataracts, Tinnitus, Ear Infections, Diverticulosis , Constipation - Past Surgical History Surgical History: Hysterectomy Additional Surgical History: Carpal Tunnel Right Arm - Family History Family Medical History: Diabetes Mellitus, Cancer, NH, Coronary Artery Disease, Heart Failure, Sudden Cardiac , Hypertension - Social History Does patient currently use any type of tobacco product: No Have you used tobacco products in the last 12 months: No Type of Tobacco Use: None Does any household member use tobacco: No Alcohol Use: None Drug Use: None - Review of Systems Constitutional: Fever, Weakness Eyes: No Symptoms Reported ENT: No Symptoms Reported Respiratory: Cough, Shortness of Breath, SOB with Excertion, Sputum, Wheezing Cardiovascular: No Symptoms Reported Gastrointestinal: Nausea Genitourinary: No Symptoms Reported Musculoskeletal: Back Pain Skin: No Symptoms Reported Neurological: Weakness - Physical Exam Vital Signs: Temperature 98.2 F Pulse Rate [Left Brachial] 82 Pulse Rate 80 Respiratory Rate 20 Blood Pressure [Left Arm] 173/84 Blood Pressure [Right Arm] 109/58 Blood Pressure 109/58 O2 Sat by Pulse Oximetry 96 Oriented: Normal Eyes: Normal Ear: Normal Nose: Normal Throat: Normal Respiratory: Rhonchi Throughout, Wheezes Throughout Cardiovascular: Tachycardia : Normal Auscultation: Bowel Sounds: Normal Palpation: Normal Tenderness: Normal Skin: Normal Musculoskeletal: Back:Thoracic, Back:Lumbar Psychiatric: Anxiety Affect: Anxious Speech Pattern: Clear, Appropriate - Assessment/Plan (1) Acute bronchitis Status: Acute Plan: ADMIT, PNEUMONIA PROTOCOL. BLOOD AND SPUTUM CULTURES. IV ATBX, RESP, THERAPY SUPPLMENTAL O2. BLOOD SUGAR CONTROL. RESUME HOME MEDS. BP MONITORING (2) Osteoarthritis Qualifiers: Osteoarthritis location: hip Osteoarthritis type: unspecified Laterality : right Qualified Code(s): M16.11 - Unilateral primary osteoarthritis, right hip Status: Acute (3) Diabetes mellitus Qualifiers: Diabetes mellitus type: type 2 Diabetes mellitus truck terminal manager insulin use: unspecified long-term insulin use status Diabetes mellitus complication status : with unspecified complications Qualified Code(s): E11.8 - Type 2 diabetes mellitus with unspecified complications Status: Chronic (4) Hypertension Qualifiers: Hypertension type: essential hypertension Qualified Code(s): I10 - Essential (primary) hypertension Status: Chronic
[2017-11-24] MEDS: XOPENEX 1.25 MG/3 ML NEBULE NEB SCH ×4 (08:45→21:49)
[2017-11-24] MEDS: PULMICORT NEB TX 0.5 MG NEB SCH ×2 (08:45→21:49)
[2017-11-24] MEDS: ROBITUSSIN DM PO SCH ×4 (09:02→22:26)
[2017-11-24] MEDS: ASPIRIN 81 MG CHEWTAB PO SCH (09:02)
[2017-11-24] MEDS: LEVAQUIN PREMIX IV 750 MG 750 MG/150 ML BAG IV SCH (09:02)
[2017-11-24] MEDS: CATAPRES TAB 0.1 MG PO SCH (09:02)
[2017-11-24] MEDS: NORVASC TAB 5 MG PO SCH (09:02)
[2017-11-24] MEDS: ZITHROMAX INJ 500 MG VIAL 500 MG in NS 250 ML IV 250 ML IV SCH (09:02)
[2017-11-24] MEDS ORDERED: NS 1/2 1000 ML IV 1,000 ML IV ONE (10:45)
[2017-11-24] MEDS: NS 1/2 1000 ML IV 1,000 ML IV SCH (11:59)
[2017-11-24] MEDS: HumuLIN R SUBCUT PRN ×2 (12:28→22:32)
--- NOTE | 2017-11-24 13:05 | PCM.PROG ---
Progress Note - Progress Note for Day of Date: 11/23/17 - Subjective Subjective: 62 BF ADMITTED ON 11/22 WITH BRONCHITIS FAILED OUTPT TREATMENT. PT CONTINUES WITH CO CCC, PRODUCTIVE COUGH AND WHEEZING. PT STATES SHE CANNOT SLEEP AT NIGHT DUE TO COUGH. - Past Medical Family Social History Past Med/Fam/Surg Hx: No changes since H&P Allergies: Allergies alcohol Allergy (Verified 11/22/17 16:26) - Review of Systems ROS: No change since H&P - Vital Signs and I&O's Vital Signs: Temperature 98.0 F Pulse Rate [Left Brachial] 81 Pulse Rate 88 Respiratory Rate 18 Blood Pressure [Left Arm] 121/81 Blood Pressure [Right Arm] 109/58 Blood Pressure 109/58 O2 Sat by Pulse Oximetry 97 Intake and Output: Intake & Output 11/22/17 11/23/17 11/24/17 11/25/17 11:59 11:59 11:59 11:59 Intake Total 490 1588 Balance 490 1588 - Physical Exam Oriented: Normal Eyes: Normal Ear: Normal Nose: Normal Throat: Normal Respiratory: Wheezes, Rhonchi Cardiovascular: Tachycardia : Normal Auscultation: Bowel Sounds: Normal Tenderness: Normal Skin: Normal Musculoskeletal: Back:Thoracic, Back:Lumbar Psychiatric: Anxiety Affect: Anxious Speech Pattern: Clear, Appropriate - Laboratory and Diagnostics Result Diagrams: 11/24/17 05:32 11/24/17 05:32 Labs: 11/22/17 18:10 Blood Blood Culture - Preliminary 11/22/17 18:11 Sputum - Expectorated Sputum Sputum Culture - Final 11/22/17 18:11 Sputum - Expectorated Sputum - Final Laboratory WBC 4.8 X10^3/uL (3.6-10.0) 11/24/17 05:32 RBC 4.21 X10^6/uL (3.5-5.4) 11/24/17 05:32 Hgb 12.5 g/dL (12.0-16.0) 11/24/17 05:32 Hct 36.7 % (36.0-47.0) 11/24/17 05:32 MCV 87.3 fL (80.0-100.0) 11/24/17 05:32 MCH 29.7 pg (27.0-34.0) 11/24/17 05:32 MCHC 34.0 g/dL (33.0-35.0) 11/24/17 05:32 RDW 13.5 % (11.6-16.5) 11/24/17 05:32 Plt Count 194 X10^3/uL (150.0-450.0) 11/24/17 05:32 MPV 8.5 fL (7.4-11.0) 11/24/17 05:32 Neut % (Auto) 49.3 % (42.0-75.0) 11/24/17 05:32 Lymph % (Auto) 33.5 % (21.0-51.0) 11/24/17 05:32 [place] % (Auto) 12.5 % (0.0-13.0) 11/24/17 05:32 Eos % (Auto) 4.2 % (0.9-2.9) H 11/24/17 05:32 Baso % (Auto) 0.5 % (0.2-1.0) 11/24/17 05:32 Neut # (Auto) 2.4 x10^3/uL (2.2-4.8) 11/24/17 05:32 Lymph # (Auto) 1.6 X10^3/uL (1.3-2.9) 11/24/17 05:32 [place] # (Auto) 0.6 x10^3/uL (0.3-0.8) 11/24/17 05:32 Eos # (Auto) 0.2 x10^3/uL (0.0-0.2) 11/24/17 05:32 Baso # (Auto) 0.0 X10^3/uL (0.0-0.1) 11/24/17 05:32 Absolute Nucleated RBC 0.1 /100WBC 11/24/17 05:32 Sodium 141 mmol/L (136-145) 11/24/17 05:32 Corrected Sodium 143 mmol/L (136-145) 11/24/17 05:32 Potassium 3.9 mmol/L (3.5-5.1) 11/24/17 05:32 Chloride 105 mmol/L (98-107) 11/24/17 05:32 Carbon Dioxide 25.0 mmol/L (21-32) 11/24/17 05:32 BUN 11 mg/dL (7-18) 11/24/17 05:32 Creatinine 0.68 mg/dL (0.55-1.02) 11/24/17 05:32 Est GFR (MDRD) Af Amer > 60 (>60) 11/24/17 05:32 Est GFR (MDRD) Non-Af > 60 (>60) 11/24/17 05:32 Glucose 166 mg/dL (65-99) H 11/24/17 05:32 POC Glucose (mg/dL) 231 mg/dL (65-99) H 11/24/17 12:15 Calcium 8.5 mg/dL (8.5-10.1) 11/24/17 05:32 Corrected Calcium 9.1 mg/dL (8.5-10.1) 11/24/17 05:32 Total Bilirubin 0.40 mg/dL (0.2-1.0) 11/24/17 05:32 AST 13 Units/L (15-37) L 11/24/17 05:32 ALT 22 Units/L (12-78) 11/24/17 05:32 Alkaline Phosphatase 86 Units/L (46-116) 11/24/17 05:32 Total Protein 7.1 g/dL (6.4-8.2) 11/24/17 05:32 Albumin 3.2 g/dL (3.4-5.0) L 11/24/17 05:32 Globulin 3.9 g/dL (2.5-4.5) 11/24/17 05:32 Albumin/Globulin Ratio 0.8 Ratio (1.1-2.1) L 11/24/17 05:32 - Plan (1) Acute bronchitis Status: Acute Plan: PNEUMONIA PROTOCOL. BLOOD AND SPUTUM CULTURES PENDING. IV ATBX, RESP, THERAPY SUPPLMENTAL O2. BLOOD SUGAR CONTROL. BP MONITORING (2) Osteoarthritis Status: Acute Qualifiers: Osteoarthritis location: hip Osteoarthritis type: unspecified Laterality : right Qualified Code(s): M16.11 - Unilateral primary osteoarthritis, right hip (3) Diabetes mellitus Status: Chronic Qualifiers: Diabetes mellitus type: type 2 Diabetes mellitus nursing home insulin use: unspecified nursing home insulin use status Diabetes mellitus complication status : with unspecified complications Qualified Code(s): E11.8 - Type 2 diabetes mellitus with unspecified complications (4) Hypertension Status: Chronic Qualifiers: Hypertension type: essential hypertension Qualified Code(s): I10 - Essential (primary) hypertension
--- NOTE | 2017-11-24 13:06 | PCM.PROG ---
Progress Note - Progress Note for Day of Date: 11/24/17 - Subjective Subjective: 62 BF ADMITTED ON 11/22 WITH BRONCHITIS FAILED OUTPT TREATMENT. PT CONTINUES WITH CO CCC, PRODUCTIVE COUGH AND WHEEZING. PT STATES SHE CANNOT SLEEP AT NIGHT DUE TO COUGH. PT CO SORENESS TO UPPER CHEST AND UPPER BACK - Past Medical Family Social History Past Med/Fam/Surg Hx: No changes since H&P Allergies: Allergies alcohol Allergy (Verified 11/22/17 16:26) - Review of Systems ROS: No change since H&P - Vital Signs and I&O's Vital Signs: Temperature 98.0 F Pulse Rate [Left Brachial] 81 Pulse Rate 88 Respiratory Rate 18 Blood Pressure [Left Arm] 121/81 Blood Pressure [Right Arm] 109/58 Blood Pressure 109/58 O2 Sat by Pulse Oximetry 97 Intake and Output: Intake & Output 11/22/17 11/23/17 11/24/17 11/25/17 11:59 11:59 11:59 11:59 Intake Total 490 1588 Balance 490 1588 - Physical Exam Oriented: Normal Eyes: Normal Ear: Normal Nose: Normal Throat: Normal Respiratory: Wheezes, Rhonchi Cardiovascular: Tachycardia : Normal Auscultation: Bowel Sounds: Normal Tenderness: Normal Skin: Normal Musculoskeletal: Back:Thoracic, Back:Lumbar Psychiatric: Anxiety Affect: Anxious Speech Pattern: Clear, Appropriate - Laboratory and Diagnostics Result Diagrams: 11/24/17 05:32 11/24/17 05:32 Labs: 11/22/17 18:10 Blood Blood Culture - Preliminary 11/22/17 18:11 Sputum - Expectorated Sputum Sputum Culture - Final 11/22/17 18:11 Sputum - Expectorated Sputum - Final Laboratory WBC 4.8 X10^3/uL (3.6-10.0) 11/24/17 05:32 RBC 4.21 X10^6/uL (3.5-5.4) 11/24/17 05:32 Hgb 12.5 g/dL (12.0-16.0) 11/24/17 05:32 Hct 36.7 % (36.0-47.0) 11/24/17 05:32 MCV 87.3 fL (80.0-100.0) 11/24/17 05:32 MCH 29.7 pg (27.0-34.0) 11/24/17 05:32 MCHC 34.0 g/dL (33.0-35.0) 11/24/17 05:32 RDW 13.5 % (11.6-16.5) 11/24/17 05:32 Plt Count 194 X10^3/uL (150.0-450.0) 11/24/17 05:32 MPV 8.5 fL (7.4-11.0) 11/24/17 05:32 Neut % (Auto) 49.3 % (42.0-75.0) 11/24/17 05:32 Lymph % (Auto) 33.5 % (21.0-51.0) 11/24/17 05:32 [place] % (Auto) 12.5 % (0.0-13.0) 11/24/17 05:32 Eos % (Auto) 4.2 % (0.9-2.9) H 11/24/17 05:32 Baso % (Auto) 0.5 % (0.2-1.0) 11/24/17 05:32 Neut # (Auto) 2.4 x10^3/uL (2.2-4.8) 11/24/17 05:32 Lymph # (Auto) 1.6 X10^3/uL (1.3-2.9) 11/24/17 05:32 [place] # (Auto) 0.6 x10^3/uL (0.3-0.8) 11/24/17 05:32 Eos # (Auto) 0.2 x10^3/uL (0.0-0.2) 11/24/17 05:32 Baso # (Auto) 0.0 X10^3/uL (0.0-0.1) 11/24/17 05:32 Absolute Nucleated RBC 0.1 /100WBC 11/24/17 05:32 Sodium 141 mmol/L (136-145) 11/24/17 05:32 Corrected Sodium 143 mmol/L (136-145) 11/24/17 05:32 Potassium 3.9 mmol/L (3.5-5.1) 11/24/17 05:32 Chloride 105 mmol/L (98-107) 11/24/17 05:32 Carbon Dioxide 25.0 mmol/L (21-32) 11/24/17 05:32 BUN 11 mg/dL (7-18) 11/24/17 05:32 Creatinine 0.68 mg/dL (0.55-1.02) 11/24/17 05:32 Est GFR (MDRD) Af Amer > 60 (>60) 11/24/17 05:32 Est GFR (MDRD) Non-Af > 60 (>60) 11/24/17 05:32 Glucose 166 mg/dL (65-99) H 11/24/17 05:32 POC Glucose (mg/dL) 231 mg/dL (65-99) H 11/24/17 12:15 Calcium 8.5 mg/dL (8.5-10.1) 11/24/17 05:32 Corrected Calcium 9.1 mg/dL (8.5-10.1) 11/24/17 05:32 Total Bilirubin 0.40 mg/dL (0.2-1.0) 11/24/17 05:32 AST 13 Units/L (15-37) L 11/24/17 05:32 ALT 22 Units/L (12-78) 11/24/17 05:32 Alkaline Phosphatase 86 Units/L (46-116) 11/24/17 05:32 Total Protein 7.1 g/dL (6.4-8.2) 11/24/17 05:32 Albumin 3.2 g/dL (3.4-5.0) L 11/24/17 05:32 Globulin 3.9 g/dL (2.5-4.5) 11/24/17 05:32 Albumin/Globulin Ratio 0.8 Ratio (1.1-2.1) L 11/24/17 05:32 - Plan (1) Acute bronchitis Status: Acute Plan: PNEUMONIA PROTOCOL. BLOOD AND SPUTUM CULTURES PENDING. IV ATBX, RESP, THERAPY SUPPLMENTAL O2. BLOOD SUGAR CONTROL, ADD LEVEMIR DAILY. MUCOMYST AND LOW DOSE SOLU-MEDRL, ENCOURAGE ORAL HYDRATION PULMONARY TOILETING. BP MONITORING (2) Osteoarthritis Status: Acute Qualifiers: Osteoarthritis location: hip Osteoarthritis type: unspecified Laterality : right Qualified Code(s): M16.11 - Unilateral primary osteoarthritis, right hip (3) Diabetes mellitus Status: Chronic Qualifiers: Diabetes mellitus type: type 2 Diabetes mellitus shelter insulin use: unspecified shelter insulin use status Diabetes mellitus complication status : with unspecified complications Qualified Code(s): E11.8 - Type 2 diabetes mellitus with unspecified complications (4) Hypertension Status: Chronic Qualifiers: Hypertension type: essential hypertension Qualified Code(s): I10 - Essential (primary) hypertension
[2017-11-24] MEDS: MUCOMYST 20% 200 MG/ML NEB SCH ×2 (14:01→21:49)
[2017-11-24] MEDS: LEVEMIR SC SCH (16:46)
[2017-11-24] MEDS: SOLU-Medrol 40 MG VIAL IVP SCH ×2 (16:46→22:29)
[2017-11-24] MEDS: SNACK - Diabetic Appropriate PO SCH ×2 (20:30→21:00)
[2017-11-24] MEDS: LIPITOR TAB 40 MG PO SCH (22:27)
[2017-11-25] MEDS ORDERED: NS 1/2 1000 ML IV 1,000 ML IV ONE (05:26)
[2017-11-25] MEDS: SOLU-Medrol 40 MG VIAL IVP SCH (05:35)
[2017-11-25] MEDS: NS 1/2 1000 ML IV 1,000 ML IV SCH ×2 (05:35→18:10)
--- NOTE | 2017-11-25 05:44 | RAD ---
Examination: Portable AP chest History: SOB Comparison 11/24/2017 Findings: Continued normal heart size with clear lungs and pleural spaces. Impression: No change; no acute abnormality demonstrated. Reported By:
[2017-11-25] MEDS: HumuLIN R SUBCUT PRN ×2 (07:04→17:26)
[2017-11-25] MEDS: MUCOMYST 20% 200 MG/ML NEB SCH ×3 (08:40→16:40)
[2017-11-25] MEDS: PULMICORT NEB TX 0.5 MG NEB SCH ×2 (08:40→20:30)
[2017-11-25] MEDS: XOPENEX 1.25 MG/3 ML NEBULE NEB SCH ×4 (08:40→20:30)
[2017-11-25] MEDS: LEVAQUIN PREMIX IV 750 MG 750 MG/150 ML BAG IV SCH (08:57)
[2017-11-25] MEDS: CATAPRES TAB 0.1 MG PO SCH (08:58)
[2017-11-25] MEDS: NORVASC TAB 5 MG PO SCH (08:58)
[2017-11-25] MEDS: ASPIRIN 81 MG CHEWTAB PO SCH (08:59)
[2017-11-25] MEDS: ROBITUSSIN (PLAIN) PO SCH ×4 (09:58→21:15)
[2017-11-25] MEDS: LEVEMIR SC SCH (09:58)
[2017-11-25] MEDS: TESSALON PERLES PO SCH ×3 (09:58→21:14)
[2017-11-25] MEDS: ZITHROMAX INJ 500 MG VIAL 500 MG in NS 250 ML IV 250 ML IV SCH (11:30)
--- NOTE | 2017-11-25 12:05 | CT ---
HISTORY: Concern for sinusitis. Headache. Noncontrast CT examination of the paranasal sinuses. Technique: Multiple axial images of the paranasal sinuses were obtained without contrast. Findings: There is moderate nasal septal and nasal mucosal hypertrophy; findings which can be seen with allergi c rhinitis. There is no evidence for acute sinusitis or aggressive sinus disease. There is no evidenc e for sinus fungal colonization. No concerning paranasal sinus mucosal mass lesion is seen. There are findings of acute on chronic sinusitis throughout the ethmoid sinuses. There are findings of chronic , [id number], bilateral maxillary sinusitis. There is moderate narrowing of the left greater th an right ostiomeatal units for mucoperiosteal thickening. The sphenoid and frontal sinuses are relati vely clear. There is no evidence for mastoiditis. The middle ear cavities are clear bilaterally. Ther e is a right ocular/global prosthesis observed. No secondary evidence for intraorbital abscess format ion or cellulitis is seen. The nasal septum is midline. No bony spur formation is seen. The left and right frontal recess are moderately narrowed also. Visualized portions of the posterior fossa and i ntracranial structures are unremarkable as well. IMPRESSION: Imaging findings suggesting chronic rhinitis with nasal mucosal hypertrophy. Acute on chronic (diffuse & relatively severe) sinusitis throughout the ethmoid sinuses. CT findings of chronic, [id number], bilateral maxillary sinusitis. Moderate narrowing of the le ft greater than right ostiomeatal units for mucoperiosteal thickening. The sphenoid and frontal sinuses are relatively clear. There is no evidence for mastoiditis. The middle ear cavities are clear bilaterally. There is a right ocular/global prosthesis observed. No secondary evidence for intraorbital abscess formation or cellulitis is seen. Reported By:
[2017-11-25] MEDS: COZAAR PO SCH (15:09)
[2017-11-25] MEDS: FLONASE NASAL SPRAY ENOSTRIL SCH (15:09)
[2017-11-25] MEDS: GLUCOPHAGE XR PO SCH (21:14)
[2017-11-25] MEDS: NEURONTIN CAP 100 MG PO PRN (21:14)
[2017-11-25] MEDS: LIPITOR TAB 40 MG PO SCH (21:15)
[2017-11-25] MEDS: SNACK - Diabetic Appropriate PO SCH ×2 (21:17)
[2017-11-25] MEDS: COLACE CAP 100 MG PO PRN (23:08)
[2017-11-25] MEDS: MILK OF MAGNESIA PO PRN (23:08)
[2017-11-26] MEDS ORDERED: NS 1/2 1000 ML IV 1,000 ML IV ONE ×2 (00:57→18:56)
[2017-11-26] MEDS: NS 1/2 1000 ML IV 1,000 ML IV SCH ×4 (01:01→21:34)
[2017-11-26] MEDS: TUSSIONEX PENNKINETIC SUSP PO PRN (02:48)
[2017-11-26] MEDS: XOPENEX 1.25 MG/3 ML NEBULE NEB SCH ×5 (03:04→21:25)
[2017-11-26] MEDS: TESSALON PERLES PO SCH ×3 (05:43→21:36)
[2017-11-26 05:57] LABS: BASOPHILS % (AUTO) 0.1 % (0.2-1.0); EOSINOPHILS % (AUTO) 0.4 % (0.9-2.9); HEMATOCRIT 36.6 % (36.0-47.0); HEMOGLOBIN 12.6 g/dL (12.0-16.0); LYMPHOCYTES # (AUTO) 2.4 X10^3/uL (1.3-2.9); LYMPHOCYTES % (AUTO) 23.5 % (21.0-51.0); MEAN CORPUSCULAR HGB CONC 34.5 g/dL (33.0-35.0); MEAN PLATELET VOLUME 8.4 fL (7.4-11.0); MONOCYTES # (AUTO) 0.8 x10^3/uL (0.3-0.8); MONOCYTES % (AUTO) 7.9 % (0.0-13.0); NEUTROPHILS # (AUTO) 6.9 x10^3/uL (2.2-4.8); NEUTROPHILS % (AUTO) 68.1 % (42.0-75.0); PLATELET COUNT 202 X10^3/uL (150.0-450.0); RED BLOOD COUNT 4.21 X10^6/uL (3.5-5.4); RED CELL DISTRIBUTION WIDTH 13.5 % (11.6-16.5); WHITE BLOOD COUNT 10.1 X10^3/uL (3.6-10.0)
[2017-11-26 06:16] LABS: ALANINE AMINOTRANSFERASE 25 Units/L (12-78); ALBUMIN 3.2 g/dL (3.4-5.0); ALKALINE PHOSPHATASE 85 Units/L (46-116); ASPARTATE AMINO TRANSFERASE 15 Units/L (15-37); BLOOD UREA NITROGEN 20 mg/dL (7-18); CALCIUM 9.1 mg/dL (8.5-10.1); CARBON DIOXIDE 24.4 mmol/L (21-32); CHLORIDE 105 mmol/L (98-107); COR CA(FOR HYPOALB) 9.7 mg/dL (8.5-10.1); COR NA(FOR HYPERGLY) 143 mmol/L (136-145); SODIUM 141 mmol/L (136-145); TOTAL PROTEIN 7.1 g/dL (6.4-8.2); eGFR BLACK RACES > 60 (>60); eGFR NON BLACK RACES > 60 (>60)
[2017-11-26] MEDS ORDERED: MAGNESIUM SULFATE 1 GM/100 mL PREMIX 1 GM/100 ML BAG IV PRN (06:41)
[2017-11-26] MEDS ORDERED: POTASSIUM CHL 40 MEQ/NS 0.45% 500 ML IV PRN (06:41)
[2017-11-26] MEDS ORDERED: POTASSIUM CHLORIDE LIQ 20 MEQ UDC PO PRN (06:41)
[2017-11-26] MEDS ORDERED: K-LYTE EFFERVESCENT PO PRN (06:41)
[2017-11-26] MEDS ORDERED: POTASSIUM CHL 60 MEQ/NS 0.45% 500 ML IV PRN (06:41)
[2017-11-26] MEDS ORDERED: K-RIDER 10 MEQ/NS 100 ML 10 MEQ/100 ML BAG IV PRN (06:41)
[2017-11-26] MEDS: NORVASC TAB 5 MG PO SCH (08:45)
[2017-11-26] MEDS: ROBITUSSIN (PLAIN) PO SCH ×4 (08:45→21:36)
[2017-11-26] MEDS: COZAAR PO SCH (08:45)
[2017-11-26] MEDS: ASPIRIN 81 MG CHEWTAB PO SCH (08:45)
[2017-11-26] MEDS: LEVAQUIN PREMIX IV 750 MG 750 MG/150 ML BAG IV SCH (08:45)
[2017-11-26] MEDS: FLONASE NASAL SPRAY ENOSTRIL SCH (08:46)
[2017-11-26] MEDS: LEVEMIR SC SCH (08:47)
[2017-11-26] MEDS: PULMICORT NEB TX 0.5 MG NEB SCH ×2 (09:50→21:25)
[2017-11-26] MEDS: MUCOMYST 20% 200 MG/ML NEB SCH ×5 (09:51→21:25)
[2017-11-26] MEDS: ZITHROMAX INJ 500 MG VIAL 500 MG in NS 250 ML IV 250 ML IV SCH (10:59)
[2017-11-26] MEDS: ACTOS PO SCH (11:07)
[2017-11-26] MEDS: HumuLIN R SUBCUT PRN ×2 (16:59→21:36)
[2017-11-26] MEDS: SNACK - Diabetic Appropriate PO SCH (21:35)
[2017-11-26] MEDS: GLUCOPHAGE XR PO SCH (21:35)
[2017-11-26] MEDS: LIPITOR TAB 40 MG PO SCH (21:35)
[2017-11-26] MEDS: NEURONTIN CAP 100 MG PO PRN (21:37)
[2017-11-27] MEDS: TESSALON PERLES PO SCH ×3 (05:45→21:26)
[2017-11-27] MEDS: MUCOMYST 20% 200 MG/ML NEB SCH (08:35)
[2017-11-27] MEDS: PULMICORT NEB TX 0.5 MG NEB SCH ×2 (08:35→21:43)
[2017-11-27] MEDS: XOPENEX 1.25 MG/3 ML NEBULE NEB SCH ×4 (08:35→21:43)
[2017-11-27] MEDS: LEVAQUIN PREMIX IV 750 MG 750 MG/150 ML BAG IV SCH (08:38)
[2017-11-27] MEDS: ASPIRIN 81 MG CHEWTAB PO SCH (08:38)
[2017-11-27] MEDS: COZAAR PO SCH (08:38)
[2017-11-27] MEDS: NORVASC TAB 5 MG PO SCH (08:38)
[2017-11-27] MEDS: ROBITUSSIN (PLAIN) PO SCH ×4 (08:38→21:26)
[2017-11-27] MEDS: ACTOS PO SCH (08:38)
[2017-11-27] MEDS: FLONASE NASAL SPRAY ENOSTRIL SCH (08:45)
[2017-11-27] MEDS: LEVEMIR SC SCH (08:47)
[2017-11-27] MEDS: NS 1/2 1000 ML IV 1,000 ML IV SCH ×2 (08:47→19:43)
[2017-11-27] MEDS ORDERED: NS 1/2 1000 ML IV 1,000 ML IV ONE (10:03)
[2017-11-27] MEDS: ZITHROMAX INJ 500 MG VIAL 500 MG in NS 250 ML IV 250 ML IV SCH (11:30)
--- NOTE | 2017-11-27 17:49 | PCM.PROG ---
Progress Note - Progress Note for Day of Date: 11/27/17 - Subjective Subjective: 62 BF ADMITTED ON 11/22 WITH BRONCHITIS FAILED OUTPT TREATMENT. PT CONTINUES WITH CO CCC, PRODUCTIVE COUGH, WITH IMPROVING WHEEZING. PT HAD POS BLOOD CUTLURES, REVIEWED LABS WITH PT. CURRENTLY ON LEVAQUIN, WILL CONTINUE AND REPEAT SET OF BLOOD CULTURES. - Past Medical Family Social History Past Med/Fam/Surg Hx: No changes since H&P Allergies: Allergies alcohol Allergy (Verified 11/22/17 16:26) - Review of Systems ROS: No change since H&P - Vital Signs and I&O's Vital Signs: Temperature 98.4 F Pulse Rate [Right Brachial] 89 Pulse Rate [Left Brachial] 97 Pulse Rate 101 Respiratory Rate 20 Blood Pressure [Left Arm] 133/64 Blood Pressure [Right Arm] 128/70 Blood Pressure 109/58 O2 Sat by Pulse Oximetry 96 Intake and Output: Intake & Output 11/25/17 11/26/17 11/27/17 11/28/17 11:59 11:59 11:59 11:59 Intake Total 480 3514 1725 1223 Balance 480 3514 1725 1223 - Physical Exam Oriented: Normal Eyes: Normal Ear: Normal Nose: Normal Throat: Normal Respiratory: Wheezes, Rhonchi Cardiovascular: Tachycardia : Normal Auscultation: Bowel Sounds: Normal Tenderness: Normal Skin: Normal Musculoskeletal: Back:Thoracic, Back:Lumbar Psychiatric: Anxiety Affect: Anxious Speech Pattern: Clear, Appropriate - Laboratory and Diagnostics Result Diagrams: 11/26/17 04:15 11/26/17 04:15 Labs: 11/25/17 11:24 Sputum - Expectorated Sputum Sputum Culture - Final 11/25/17 11:24 Sputum - Expectorated Sputum - Final 11/22/17 18:10 Blood Blood Culture - Final Staphylococcus Hominis 11/22/17 18:08 Blood Blood Culture - Final Staphylococcus Epidermidis 11/22/17 18:11 Sputum - Expectorated Sputum Sputum Culture - Final 11/22/17 18:11 Sputum - Expectorated Sputum - Final Laboratory WBC 10.1 X10^3/uL (3.6-10.0) H 11/26/17 04:15 RBC 4.21 X10^6/uL (3.5-5.4) 11/26/17 04:15 Hgb 12.6 g/dL (12.0-16.0) 11/26/17 04:15 Hct 36.6 % (36.0-47.0) 11/26/17 04:15 MCV 87.0 fL (80.0-100.0) 11/26/17 04:15 MCH 30.0 pg (27.0-34.0) 11/26/17 04:15 MCHC 34.5 g/dL (33.0-35.0) 11/26/17 04:15 RDW 13.5 % (11.6-16.5) 11/26/17 04:15 Plt Count 202 X10^3/uL (150.0-450.0) 11/26/17 04:15 MPV 8.4 fL (7.4-11.0) 11/26/17 04:15 Neut % (Auto) 68.1 % (42.0-75.0) 11/26/17 04:15 Lymph % (Auto) 23.5 % (21.0-51.0) 11/26/17 04:15 [place] % (Auto) 7.9 % (0.0-13.0) 11/26/17 04:15 Eos % (Auto) 0.4 % (0.9-2.9) L 11/26/17 04:15 Baso % (Auto) 0.1 % (0.2-1.0) L 11/26/17 04:15 Neut # (Auto) 6.9 x10^3/uL (2.2-4.8) H 11/26/17 04:15 Lymph # (Auto) 2.4 X10^3/uL (1.3-2.9) 11/26/17 04:15 [place] # (Auto) 0.8 x10^3/uL (0.3-0.8) 11/26/17 04:15 Eos # (Auto) 0.0 x10^3/uL (0.0-0.2) 11/26/17 04:15 Baso # (Auto) 0.0 X10^3/uL (0.0-0.1) 11/26/17 04:15 Absolute Nucleated RBC 0.0 /100WBC 11/26/17 04:15 Sodium 141 mmol/L (136-145) 11/26/17 04:15 Corrected Sodium 143 mmol/L (136-145) 11/26/17 04:15 Potassium 3.5 mmol/L (3.5-5.1) 11/26/17 04:15 Chloride 105 mmol/L (98-107) 11/26/17 04:15 Carbon Dioxide 24.4 mmol/L (21-32) 11/26/17 04:15 BUN 20 mg/dL (7-18) H 11/26/17 04:15 Creatinine 0.80 mg/dL (0.55-1.02) 11/26/17 04:15 Est GFR (MDRD) Af Amer > 60 (>60) 11/26/17 04:15 Est GFR (MDRD) Non-Af > 60 (>60) 11/26/17 04:15 Glucose 189 mg/dL (65-99) H 11/26/17 04:15 POC Glucose (mg/dL) 194 mg/dL (65-99) H 11/27/17 17:14 Hemoglobin A1c 9.5 % 11/24/17 05:32 Calcium 9.1 mg/dL (8.5-10.1) 11/26/17 04:15 Corrected Calcium 9.7 mg/dL (8.5-10.1) 11/26/17 04:15 Magnesium 2.0 mg/dL (1.7-2.9) 11/26/17 04:15 Total Bilirubin 0.30 mg/dL (0.2-1.0) 11/26/17 04:15 AST 15 Units/L (15-37) 11/26/17 04:15 ALT 25 Units/L (12-78) 11/26/17 04:15 Alkaline Phosphatase 85 Units/L (46-116) 11/26/17 04:15 Total Protein 7.1 g/dL (6.4-8.2) 11/26/17 04:15 Albumin 3.2 g/dL (3.4-5.0) L 11/26/17 04:15 Globulin 3.9 g/dL (2.5-4.5) 11/26/17 04:15 Albumin/Globulin Ratio 0.8 Ratio (1.1-2.1) L 11/26/17 04:15 - Plan (1) Acute bronchitis Status: Acute Plan: CONTINUE PNEUMONIA PROTOCOL. REPEAT BLOOD CULTURES, CONTINUE IV LEVAQUIN. IV ATBX, RESP, THERAPY SUPPLMENTAL O2. BLOOD SUGAR CONTROL, LEVEMIR DAILY. MUCOMYST AND LOW DOSE SOLU-MEDRL, ENCOURAGE ORAL HYDRATION PULMONARY TOILETING. BP MONITORING (2) Osteoarthritis Status: Acute Qualifiers: Osteoarthritis location: hip Osteoarthritis type: unspecified Laterality : right Qualified Code(s): M16.11 - Unilateral primary osteoarthritis, right hip (3) Diabetes mellitus Status: Chronic Qualifiers: Diabetes mellitus type: type 2 Diabetes mellitus watermelon inspector insulin use: unspecified watermelon inspector insulin use status Diabetes mellitus complication status : with unspecified complications Qualified Code(s): E11.8 - Type 2 diabetes mellitus with unspecified complications (4) Hypertension Status: Chronic Qualifiers: Hypertension type: essential hypertension Qualified Code(s): I10 - Essential (primary) hypertension
[2017-11-27] MEDS ORDERED: TYLENOL 325 MG TAB PO PRN (20:34)
[2017-11-27] MEDS: COLACE CAP 100 MG PO PRN (21:25)
[2017-11-27] MEDS: NEURONTIN CAP 100 MG PO PRN (21:26)
[2017-11-27] MEDS: LIPITOR TAB 40 MG PO SCH (21:26)
[2017-11-27] MEDS: GLUCOPHAGE XR PO SCH (21:29)
[2017-11-27] MEDS: SNACK - Diabetic Appropriate PO SCH (21:30)
[2017-11-27] MEDS: HumuLIN R SUBCUT PRN (21:51)
[2017-11-28] MEDS ORDERED: NS 1/2 1000 ML IV 1,000 ML IV ONE (03:36)
[2017-11-28] MEDS: NS 1/2 1000 ML IV 1,000 ML IV SCH (03:39)
[2017-11-28] MEDS: TESSALON PERLES PO SCH ×2 (05:54→14:33)
[2017-11-28] MEDS: MILK OF MAGNESIA PO PRN (05:55)
[2017-11-28 06:10] LABS: BASOPHILS % (AUTO) 0.3 % (0.2-1.0); EOSINOPHILS # (AUTO) 0.1 x10^3/uL (0.0-0.2); EOSINOPHILS % (AUTO) 2.3 % (0.9-2.9); HEMATOCRIT 37.2 % (36.0-47.0); HEMOGLOBIN 12.5 g/dL (12.0-16.0); LYMPHOCYTES # (AUTO) 2.4 X10^3/uL (1.3-2.9); LYMPHOCYTES % (AUTO) 40.1 % (21.0-51.0); MEAN CORPUSCULAR HEMOGLOBIN 29.5 pg (27.0-34.0); MEAN CORPUSCULAR HGB CONC 33.6 g/dL (33.0-35.0); MEAN CORPUSCULAR VOLUME 87.7 fL (80.0-100.0); MEAN PLATELET VOLUME 8.4 fL (7.4-11.0); MONOCYTES # (AUTO) 0.6 x10^3/uL (0.3-0.8); MONOCYTES % (AUTO) 10.3 % (0.0-13.0); NEUTROPHILS # (AUTO) 2.8 x10^3/uL (2.2-4.8); PLATELET COUNT 194 X10^3/uL (150.0-450.0); RED BLOOD COUNT 4.25 X10^6/uL (3.5-5.4); RED CELL DISTRIBUTION WIDTH 13.5 % (11.6-16.5)
[2017-11-28 06:16] LABS: ALANINE AMINOTRANSFERASE 25 Units/L (12-78); ALBUMIN 3.1 g/dL (3.4-5.0); ALKALINE PHOSPHATASE 79 Units/L (46-116); ASPARTATE AMINO TRANSFERASE 17 Units/L (15-37); BLOOD UREA NITROGEN 14 mg/dL (7-18); CALCIUM 8.6 mg/dL (8.5-10.1); CARBON DIOXIDE 26.1 mmol/L (21-32); CHLORIDE 106 mmol/L (98-107); COR CA(FOR HYPOALB) 9.3 mg/dL (8.5-10.1); COR NA(FOR HYPERGLY) 142 mmol/L (136-145); CREATININE 0.76 mg/dL (0.55-1.02); SODIUM 141 mmol/L (136-145); TOTAL PROTEIN 6.6 g/dL (6.4-8.2); eGFR BLACK RACES > 60 (>60); eGFR NON BLACK RACES > 60 (>60)
[2017-11-28] MEDS: COZAAR PO SCH (08:35)
[2017-11-28] MEDS: NORVASC TAB 5 MG PO SCH (08:35)
[2017-11-28] MEDS: ROBITUSSIN (PLAIN) PO SCH ×2 (08:35→14:33)
[2017-11-28] MEDS: ACTOS PO SCH (08:35)
[2017-11-28] MEDS: ASPIRIN 81 MG CHEWTAB PO SCH (08:35)
[2017-11-28] MEDS: FLONASE NASAL SPRAY ENOSTRIL SCH (08:36)
[2017-11-28] MEDS: LEVAQUIN PREMIX IV 750 MG 750 MG/150 ML BAG IV SCH (08:38)
[2017-11-28] MEDS: XOPENEX 1.25 MG/3 ML NEBULE NEB SCH ×3 (09:00→16:56)
[2017-11-28] MEDS: PULMICORT NEB TX 0.5 MG NEB SCH (09:00)
[2017-11-28] MEDS ORDERED: COZAAR PO SCH (09:07)
[2017-11-28] MEDS: ZITHROMAX INJ 500 MG VIAL 500 MG in NS 250 ML IV 250 ML IV SCH (10:22)
[2017-11-28] MEDS: LEVEMIR SC SCH (10:23)
[2017-11-28 16:37] VITALS: BP 157/83
== END 2017-11-28 17:15 | disposition home or self-care (01) | DRG 194 ==
LOC: MED/SURG 15:52 → OBSVTOIN 15:52
PROVIDERS: ADMIT Internal Medicine; ATTEND Internal Medicine
DX: J18.8 Other pneumonia, unspecified organism (principal); J20.8 Acute bronchitis due to other specified organisms; B95.7 Other staphylococcus as the cause of diseases classified elsewhere; R78.81 Bacteremia; J01.00 Acute maxillary sinusitis, unspecified; J01.21 Acute recurrent ethmoidal sinusitis; M16.11 Unilateral primary osteoarthritis, right hip; R06.02 Shortness of breath; Z79.4 Long term (current) use of insulin; E78.2 Mixed hyperlipidemia; E11.65 Type 2 diabetes mellitus with hyperglycemia; I10 Essential (primary) hypertension
CPT/HCPCS: 36415; 70486; 71045; 71046; 80053; 83036; 83735; 85025; 87040; 87070; 87077; 87186; 87205; 94640; 94760; A4222; Q0177; 1956; J0456; J1815; J1956; J2920; J7608; J7620; J7626

== ENCOUNTER → 2017-12-27 | Outpatient (CLI) | payer BC ==
[2017-11-28 16:37] VITALS: BP 157/83
--- NOTE | 2017-12-27 11:44 | VAS ---
HISTORY: Left arm pain and swelling Study: Color-flow duplex Doppler studies were performed of the left arm Comparison: None TECHNIQUE: Multiple sullivan scale and color flow Doppler images of the venous system were obtained of t he left arm. FINDINGS: There is normal color flow and Doppler signal seen in the jugular and subclavian veins. The axillary, brachial, radial, and ulnar veins are patent and compressible throughout with no thrombus and phasic changed with augmentation throughout. IMPRESSION: No DVT seen in the left upper extremity. Reported By:
--- NOTE | 2017-12-27 14:14 | MG ---
HISTORY: SCREENING Comparison: 07/10/2013 FINDINGS: Bilateral CC and MLO projections of the right and left breast were obtained. Scattered fibroglandula r tissue is seen to be present. No significant architectural distortion, mass or clustered microcalc ifications can be observed to suggest malignancy. No skin thickening or nipple retraction is appreci ated. No pathological lymphadenopathy can be identified. Benign-appearing calcifications scattered throughout the right and left breasts are observed. There are also stable benign-appearing nodules bi laterally as well. IMPRESSION: NO RADIOGRAPHIC EVIDENCE OF MALIGNANCY. ACR CATEGORY 2 - benign findings. FOLLOW-UP EXAM 1 YEAR. Diagnostic CAD was utilized and reviewed. * 0 (ZERO) - ASSESSMENT INCOMPLETE; ADDITIONAL IMAGING IS NEEDED. * 1/ (ONE) - NEGATIVE. * 2/II (TWO) - BENIGN FINDINGS. * 3/III (THREE) - PROBABLY BENIGN FINDING; SHORT INTERVAL FOLLOW-UP SUGGESTED. * 4/IV (FOUR) - SUSPICIOUS ABNORMALITY; BIOPSY SHOULD BE CONSIDERED. * 5/V - HIGHLY SUSPICIOUS OF MALIGNANCY; BIOPSY SHOULD BE PERFORMED. A NEGATIVE X-RAY REPORT SHOULD NOT DELAY BIOPSY IF A DOMINANT OR CLINICALLY SUSPICIOUS MASS IS PRESENT; 4 TO 8 PERCENT OF CANCERS ARE NOT IDENTIFIED BY X-RAY. A NEGA TIVE REPORT MAY REINFORCE THE CLINICAL IMPRESSION. ADENOSIS AND DENSE BREASTS MAY OBSCURE AN UNDERLY ING NEOPLASM. Reported By:
== END ==
LOC: RAD 09:50
PROVIDERS: ATTEND Internal Medicine
DX: Z00.00 Encounter for general adult medical examination without abnormal findings (principal); Z12.31 Encounter for screening mammogram for malignant neoplasm of breast; R60.0 Localized edema
CPT/HCPCS: 77067; 93971

== ENCOUNTER 2019-02-12 07:32 | Observation (INO) ==
[2019-02-12 07:43] VITALS: BMI 27.4
[2019-02-12] MEDS ORDERED: NITROSTAT ONE (07:45)
[2019-02-12] MEDS: NITROSTAT SL PRN (07:49)
--- NOTE | 2019-02-12 07:55 | CT ---
HISTORY: Speech difficulty, facial droop Study: CT head without contrast Comparison: 04/14/2016 Findings: The ventricles are normal in size shape and position. There are no areas of abnormal attenuation to suggest recent or remote CVA, hemorrhage, mass lesion, or extra-axial fluid collection. The visualized sinuses are clear. The calvarium is intact. If acute CVA is a strong clinical consideration MRI with diffusion imaging would be of further diagnostic value. IMPRESSION: No significant intracranial abnormality identified Reported By:
[2019-02-12] MEDS ORDERED: ASPIRIN 81 MG CHEWTAB ONE (08:11)
[2019-02-12] MEDS ORDERED: CATAPRES TAB 0.2 MG ONE (08:18)
[2019-02-12] MEDS ORDERED: CATAPRES TAB 0.2 MG PO ONE (08:20)
[2019-02-12] MEDS: ASPIRIN 81 MG CHEWTAB PO SCH (08:21)
[2019-02-12 08:22] LABS: BASOPHILS % (AUTO) 0.5 % (0.2-1.0); EOSINOPHILS # (AUTO) 0.2 x10^3/uL (0.0-0.2); EOSINOPHILS % (AUTO) 2.9 % (0.9-2.9); HEMATOCRIT 42.9 % (36.0-47.0); HEMOGLOBIN 14.3 g/dL (12.0-16.0); LYMPHOCYTES % (AUTO) 54.4 % (21.0-51.0); MEAN CORPUSCULAR HEMOGLOBIN 29.6 pg (27.0-34.0); MEAN CORPUSCULAR HGB CONC 33.4 g/dL (33.0-35.0); MEAN CORPUSCULAR VOLUME 88.7 fL (80.0-100.0); MEAN PLATELET VOLUME 8.5 fL (7.4-11.0); MONOCYTES # (AUTO) 0.8 x10^3/uL (0.3-0.8); MONOCYTES % (AUTO) 14.2 % (0.0-13.0); NEUTROPHILS # (AUTO) 1.5 x10^3/uL (2.2-4.8); PLATELET COUNT 186 X10^3/uL (150.0-450.0); RED BLOOD COUNT 4.84 X10^6/uL (3.5-5.4); RED CELL DISTRIBUTION WIDTH 13.4 % (11.6-16.5); WHITE BLOOD COUNT 5.4 X10^3/uL (3.6-10.0)
[2019-02-12 08:29] LABS: BLOOD UREA NITROGEN 16 mg/dL (7-18); CALCIUM 9.9 mg/dL (8.5-10.1); CARBON DIOXIDE 24.8 mmol/L (21-32); CHLORIDE 106 mmol/L (98-107); COR NA(FOR HYPERGLY) 143 mmol/L (136-145); SODIUM 142 mmol/L (136-145); TROPONIN I < 0.02 ng/mL (0-1.5); eGFR NON BLACK RACES > 60 (>60)
[2019-02-12 08:33] LABS: ALANINE AMINOTRANSFERASE 19 Units/L (12-78); ALBUMIN 3.6 g/dL (3.4-5.0); ALKALINE PHOSPHATASE 76 Units/L (46-116); ASPARTATE AMINO TRANSFERASE 14 Units/L (15-37); CKMB % 1.9 % (<4); CREATINE KINASE 54 Units/L (26-192); CREATINE KINASE MB < 1.0 ng/mL (0-4.0); MAGNESIUM 2.3 mg/dL (1.7-2.9); TOTAL PROTEIN 7.5 g/dL (6.4-8.2)
--- NOTE | 2019-02-12 09:07 | RAD ---
History: Chest pain Study: Portable AP chest Comparison: November 25, 2017 Findings: There is mild chronic interstitial lung disease. The heart size is prominent. There is no edema or effusion. No significant bony abnormality is demonstrated. Impression: No evidence for acute cardiopulmonary disease Reported By:
[2019-02-12] MEDS ORDERED: NS 1000 ML 1,000 ML ONE (09:59)
--- NOTE | 2019-02-12 10:54 | CT ---
History: Chest pain Exam: CTA chest with contrast Comparison: None Technique: Axial spiral images were obtained from the level above the clavicles through the adrenals after bolus administration 100 cc Omnipaque 350. Automated dose control was utilized. Coronal and sagittal 3D MIP reconstructions were performed. Findings: There is mild calcified plaque throughout the aorta which is mildly dilated throughout with no aneurysm or dissection . The pulmonary arteries are well opacified with no filling defect or vessel cut off . There is a 5.4 cm cyst along the upper pole left kidney . There is diffuse mild thickening of the adrenal glands. There are small lymph nodes scattered in the AP window and along the pretracheal region with the largest measuring 1.2 cm . There is a 1.8 cm lymph node in the right axilla with some smaller nodes extending inferiorly. There are small lymph nodes scattered in the left axilla measuring up to 1.3 cm. There are hazy subpleural parenchymal and interstitial opacities along the lower lobes posterior laterally and extending into the right middle lobe . There is no pulmonary nodule or mass. Moderate degenerative changes are seen in the spine with no aggressive osseous lesion . IMPRESSION: No evidence of a pulmonary embolus. Mildly dilated and atherosclerotic thoracic aorta with no aneurysm or dissection. Mild subpleural fibrosis or early infiltrates along the lung bases posterior laterally, suggest follow-up with chest x-rays to assure stability or resolution. Borderline enlarged lymph nodes in the mediastinum which are probably reactive in etiology , suggest follow-up . Mild adrenal thickening bilaterally which may be due to hyperplasia , recommend correlating with lab values. Borderline enlarged axillary lymph nodes which are more prominent on the right. Recommend clinical follow-up. 5.4 cm left renal cyst. Reported By:
--- NOTE | 2019-02-12 12:27 | DR.CP ---
HPI Time Seen Time Seen by Provider: 02/12/19 08:20 PCP Primary Care Physician: HARRIETT CHE HPI Comment HPI Comment: Patient presents with complaint of chest pain non radiating of the mid chest. Pain is sharp 7/10 non-radiating. Denies history of cardiac disease. She admits to previous history of syncope and or facial twitching. Patient admits to having eye surgery two weeks ago Complaint Chief Complaint Doctor Comments: Chest pain Chief Complaint:: PT TO ER WITH C/O C/P PT JUST STARTED ON NEURONTIN FOR SHINGLES ON 02/11/19 , SEE NURSES NOTE ,,BR Source History Provided: Patient Mode of Arrival Mode of Arrival: Wheelchair Timing Onset of Chief Complaint: 02/12/19 PMH PMH Past Medical History: Yes Past Medical History: Diabetes, Dyslipidemia and Hypertension Past Surgical History: Yes Surgical History: Hysterectomy Family History History of Family Medical Conditions: Yes Family Medical History: Diabetes Mellitus, Cancer, [place], Coronary Artery Disease, Heart Failure, Sudden Cardiac and Hypertension Social History Does patient currently use any type of tobacco product: No Have you used tobacco products in the last 12 months: No Type of Tobacco Use: None Does any household member use tobacco: No Alcohol Use: None Do you use any recreational Drugs:: No Lives With: Alone Lives Where: Home infectious screening In the last 2 months have you had wt loss of >10#?: NO Have you had fever, night sweats or hemotysis?: No Have you traveled outside the country in the last 6 months?: No Isolation: Standard ROS Review of Systems Constitutional: No Symptoms Reported Eyes: No Symptoms Reported ENTM: No Symptoms Reported Respiratoy: No Symptoms Reported Cardiovascular: No Symptoms Reported Gastrointestinal/Abdominal: No Symptoms Reported Neurological: No Symptoms Reported Musculoskeletal: No Symptoms Reported Integumentary: No Symptoms Reported Endocrine: No Symptoms Reported All Other Systems: Reviewed and Negative PE Vitals Vitals: Pulse Rate 50 Respiratory Rate 19 Blood Pressure [Left Arm] 157/83 Blood Pressure [Right Arm] 128/70 Blood Pressure 173/86 O2 Sat by Pulse Oximetry 96 General Limitations: No Limitations General Appearance: Alert, In No Apparent Distress and Anxious Head Head Exam: Normal Inspection, Atraumatic and Normocephalic Eyes Eye exam: Normal Appearance, PERRL and EOMI ENT ENT Exam: Normal Exam, Normal Oropharynx, Normal External Ear Exam, Mucous Membranes Moist and TM's Normal Bilaterally Chest Chest Inspection: Normal Inspection and Symmetric Chest Wall Rise Respiratory Respiratory Exam: Normal Lung Sounds Bilat Respiratory Exam: Bilateral: Clear to Auscultation Cardiovascular Cardiovascular Exam: Regular Rate and Normal Rhythm Pulse: Normal Edema: Normal Abdominal Exam Abdominal Exam: Normal Inspection Abdominal Tenderness: RUQ Extremities Extremities Exam: Normal Inspection and Full ROM Back Back Exam: Normal Inspection and Full ROM Neurologic Neurological Exam: Alert, Oriented X3 and CN II-XII Intact Psychiatric Psychiatric Exam: Normal Affect and Normal Mood Skin Skin Exam: Warm, Dry and Intact COURSE Treatment Treatment: chest pain protocol ROR Labs Reviewed Laboratory Results Reviewed?: Yes Result Diagrams: 02/12/19 07:35 02/12/19 07:35 Laboratory: WBC 5.4 X10^3/uL (3.6-10.0) 02/12/19 07:35 RBC 4.84 X10^6/uL (3.5-5.4) 02/12/19 07:35 Hgb 14.3 g/dL (12.0-16.0) 02/12/19 07:35 Hct 42.9 % (36.0-47.0) 02/12/19 07:35 MCV 88.7 fL (80.0-100.0) 02/12/19 07:35 MCH 29.6 pg (27.0-34.0) 02/12/19 07:35 MCHC 33.4 g/dL (33.0-35.0) 02/12/19 07:35 RDW 13.4 % (11.6-16.5) 02/12/19 07:35 Plt Count 186 X10^3/uL (150.0-450.0) 02/12/19 07:35 MPV 8.5 fL (7.4-11.0) 02/12/19 07:35 Neut % (Auto) 28.0 % (42.0-75.0) L 02/12/19 07:35 Lymph % (Auto) 54.4 % (21.0-51.0) H 02/12/19 07:35 [place] % (Auto) 14.2 % (0.0-13.0) H 02/12/19 07:35 Eos % (Auto) 2.9 % (0.9-2.9) 02/12/19 07:35 Baso % (Auto) 0.5 % (0.2-1.0) 02/12/19 07:35 Neut # (Auto) 1.5 x10^3/uL (2.2-4.8) L 02/12/19 07:35 Lymph # (Auto) 3.0 X10^3/uL (1.3-2.9) H 02/12/19 07:35 [place] # (Auto) 0.8 x10^3/uL (0.3-0.8) 02/12/19 07:35 Eos # (Auto) 0.2 x10^3/uL (0.0-0.2) 02/12/19 07:35 Baso # (Auto) 0.0 X10^3/uL (0.0-0.1) 02/12/19 07:35 Absolute Nucleated RBC 0.3 /100WBC 02/12/19 07:35 INR Target Range - 02/12/19 07:35 INR 0.92 (0.8-1.3) 02/12/19 07:35 APTT 28.7 SECONDS (22.9-36.5) 02/12/19 07:35 PTT Comment - 02/12/19 07:35 D-Dimer 527 ng/mL (0-400) H* 02/12/19 07:35 Sodium 142 mmol/L (136-145) 02/12/19 07:35 Corrected Sodium 143 mmol/L (136-145) 02/12/19 07:35 Potassium 3.7 mmol/L (3.5-5.1) 02/12/19 07:35 Chloride 106 mmol/L (98-107) 02/12/19 07:35 Carbon Dioxide 24.8 mmol/L (21-32) 02/12/19 07:35 BUN 16 mg/dL (7-18) 02/12/19 07:35 Creatinine 0.90 mg/dL (0.55-1.02) 02/12/19 07:35 Est GFR (MDRD) Af Amer > 60 (>60) 02/12/19 07:35 Est GFR (MDRD) Non-Af > 60 (>60) 02/12/19 07:35 Glucose 138 mg/dL (65-99) H 02/12/19 07:35 Calcium 9.9 mg/dL (8.5-10.1) 02/12/19 07:35 Corrected Calcium TNP 02/12/19 07:35 Magnesium 2.3 mg/dL (1.7-2.9) 02/12/19 07:35 Total Bilirubin 0.60 mg/dL (0.2-1.0) 02/12/19 07:35 AST 14 Units/L (15-37) L 02/12/19 07:35 ALT 19 Units/L (12-78) 02/12/19 07:35 Alkaline Phosphatase 76 Units/L (46-116) 02/12/19 07:35 Creatine Kinase 54 Units/L (26-192) 02/12/19 07:35 CK-MB (CK-2) < 1.0 ng/mL (0-4.0) 02/12/19 07:35 CK/CKMB % Calc 1.9 % (<4) 02/12/19 07:35 Troponin I < 0.02 ng/mL (0-1.5) 02/12/19 07:35 Total Protein 7.5 g/dL (6.4-8.2) 02/12/19 07:35 Albumin 3.6 g/dL (3.4-5.0) 02/12/19 07:35 Globulin 3.9 g/dL (2.5-4.5) 02/12/19 07:35 Albumin/Globulin Ratio 0.9 Ratio (1.1-2.1) L 02/12/19 07:35 Other Results Comments: CT Head w/o: No significant intracranial abnormality identified/ Chest: No evidence for acute cardiopulmonary disease. CTA: No evidence of a pulmonary embolus. Mildly dilated and atherosclerotic thoracic aorta with no aneurysm or dissection. Mild subpleural fibrosis or early infiltrates along the lung bases posterior laterally, suggest follow up with chest x rays to assure stability or resolution. Borderline enlarged lymph nodes in the mediastinum which are probably reactive in etiology. suggest follow up. Mild adrenal thickening bilaterally which may be due to hyperplasia, recommend correlating with lab values. Borderline enlarged axillary lymph nodes which are more prominent on the right. Recommend clinical follow-up. XRAY XRAY Interpreted by: Radiologist Opioid Opioid Risk Tool Total: 0 Total Score Risk Category: Low Risk Copyright: Jonah NIETO predicting aberrant behaviors
[2019-02-12 13:39] LABS: CKMB % 2.6 % (<4); CREATINE KINASE 38 Units/L (26-192); CREATINE KINASE MB < 1.0 ng/mL (0-4.0); TROPONIN I < 0.02 ng/mL (0-1.5)
[2019-02-12 14:33] LABS: BILIRUBIN,URINE NEGATIVE (NEGATIVE); BLOOD/HEMOGLOBIN,URINE NEGATIVE (NEGATIVE); GLUCOSE, URINE 2+ (NEGATIVE); KETONES,URINE NEGATIVE (NEGATIVE); LEUKOCYTE ESTERASE ,URINE NEGATIVE (NEGATIVE); NITRITES,URINE NEGATIVE (NEGATIVE); PROTEIN,URINE 1+ (NEGATIVE); UROBILINOGEN,URINE NORMAL (NORMAL)
[2019-02-12 14:44] LABS: APPEARANCE,URINE CLEAR (CLEAR); COLOR,URINE YELLOW (YELLOW)
[2019-02-12 14:45] LABS: BACTERIA,URINE TRACE /HPF (NEGATIVE); MUCUS,URINE FEW /HPF (NEGATIVE); RBC,URINE 0-2 /HPF (NONE SEEN); SQUAMOUS EPITHELIAL CELL,UR FEW /HPF (NEGATIVE)
[2019-02-12] MEDS: NS 1000 ML 1,000 ML IV SCH (16:32)
[2019-02-12 19:53] LABS: CKMB % 2.9 % (<4); CREATINE KINASE 35 Units/L (26-192); CREATINE KINASE MB < 1.0 ng/mL (0-4.0); TROPONIN I < 0.02 ng/mL (0-1.5)
[2019-02-12] MEDS: SNACK - Diabetic Appropriate PO SCH (20:44)
[2019-02-12] MEDS: HumuLIN R SUBCUT PRN (20:45)
[2019-02-13 01:20] LABS: CKMB % 2.9 % (<4); CREATINE KINASE 35 Units/L (26-192); CREATINE KINASE MB < 1.0 ng/mL (0-4.0); TROPONIN I < 0.02 ng/mL (0-1.5)
[2019-02-13] MEDS: NITROSTAT SL PRN ×2 (04:16→04:33)
[2019-02-13] MEDS: NS 1000 ML 1,000 ML IV SCH (04:56)
[2019-02-13 05:28] LABS: BASOPHILS % (AUTO) 0.6 % (0.2-1.0); EOSINOPHILS # (AUTO) 0.1 x10^3/uL (0.0-0.2); EOSINOPHILS % (AUTO) 2.6 % (0.9-2.9); HEMATOCRIT 43.6 % (36.0-47.0); HEMOGLOBIN 14.4 g/dL (12.0-16.0); LYMPHOCYTES # (AUTO) 2.1 X10^3/uL (1.3-2.9); LYMPHOCYTES % (AUTO) 48.8 % (21.0-51.0); MEAN CORPUSCULAR HEMOGLOBIN 29.6 pg (27.0-34.0); MEAN CORPUSCULAR VOLUME 89.6 fL (80.0-100.0); MEAN PLATELET VOLUME 8.9 fL (7.4-11.0); MONOCYTES # (AUTO) 0.6 x10^3/uL (0.3-0.8); MONOCYTES % (AUTO) 13.7 % (0.0-13.0); NEUTROPHILS # (AUTO) 1.5 x10^3/uL (2.2-4.8); NEUTROPHILS % (AUTO) 34.3 % (42.0-75.0); PLATELET COUNT 176 X10^3/uL (150.0-450.0); RED BLOOD COUNT 4.86 X10^6/uL (3.5-5.4); RED CELL DISTRIBUTION WIDTH 13.5 % (11.6-16.5); WHITE BLOOD COUNT 4.3 X10^3/uL (3.6-10.0)
[2019-02-13 05:45] LABS: ALANINE AMINOTRANSFERASE 22 Units/L (12-78); ALBUMIN 3.5 g/dL (3.4-5.0); ALKALINE PHOSPHATASE 76 Units/L (46-116); ASPARTATE AMINO TRANSFERASE 15 Units/L (15-37); BLOOD UREA NITROGEN 13 mg/dL (7-18); CALCIUM 9.2 mg/dL (8.5-10.1); CARBON DIOXIDE 26.4 mmol/L (21-32); CHLORIDE 106 mmol/L (98-107); CHOL/HDL RATIO 4.1 (0.0-5.0); CHOLESTEROL 255 mg/dL (0-200); COR NA(FOR HYPERGLY) 143 mmol/L (136-145); CREATININE 0.71 mg/dL (0.55-1.02); HDL CHOLESTEROL 62 mg/dL (40-60); MAGNESIUM 2.1 mg/dL (1.7-2.9); SODIUM 142 mmol/L (136-145); TOTAL PROTEIN 7.6 g/dL (6.4-8.2); TRIGLYCERIDES 173 mg/dL (0-150); eGFR NON BLACK RACES > 60 (>60)
[2019-02-13] MEDS ORDERED: XYLOCAINE OINT 5% TOP PRN (08:15)
[2019-02-13] MEDS: ASPIRIN 81 MG CHEWTAB PO SCH (08:46)
[2019-02-13] MEDS: NORCO 7.5/325 MG TAB PO PRN (08:47)
[2019-02-13] MEDS: NORVASC TAB 5 MG PO SCH (08:47)
[2019-02-13] MEDS: ZOVIRAX TOP SCH ×3 (09:12→22:37)
[2019-02-13] MEDS: HumuLIN 70/30 (NovoLIN 70/30) SC SCH ×2 (09:13→21:34)
[2019-02-13] MEDS: HYZAAR 50/12.5 MG PO SCH (11:04)
[2019-02-13] MEDS: HumuLIN R SUBCUT PRN (12:21)
[2019-02-13] MEDS: FAMCICLOVIR 500 MG PO SCH ×2 (14:39→21:24)
[2019-02-13] MEDS ORDERED: SNACK - Diabetic Appropriate PO SCH (20:00)
[2019-02-13] MEDS ORDERED: COLACE CAP 100 MG PO PRN (20:21)
[2019-02-13] MEDS ORDERED: MAALOX or MYLANTA PO PRN (20:21)
--- NOTE | 2019-02-13 20:51 | DR.H&P ---
H&P - History & Physical for Day of: H&P Date: 02/12/19 - Chief Complaint Chief Complaint: CHEST PAIN, SYCOPE, FACIAL TWITCHING - History of Present Illness History of Present Illness: IS A 63 YEAR OLD PATIENT OF OURS WHO PRESENTED TO THE ER WITH COMPLAINTS OF MID STERNAL CHEST PAIN, SYNCOPE, AND FACIAL TWITCHING. SHE RATES PAIN 7/10. SHE REPORTS BEING TREATED FOR SHINGLES WITHIN THE PAST FEW DAYS. SHE HAS A MEDICAL HISTORY OF HTN AND DIABETES. WHEN PATIENT WAS BROUGHT BACK TO THE ER, SHE CONTINUED WITH CHEST PAIN. SHE BECAME LIMP AND UNRESPONSIVE. STAFF REPORTED HTAT PATIENT WAS NOT NOTED TO BE BREATHING. STAFF BAGGED PATIENT WITH THE AMBU BAG FOR APPROXIMATELY 30 SECONDS BEFORE PATIENT STARTS BREATHING ON HER OWN AND BECAME MORE ALERT. AFTER THIS EPISODE, STAFF REPORTS THAT PATIENTS RIGHT SIDE OF FACE DRAWN. SHE IS NOTED WITH SHINGLES TO THE LEFT SIDE CHEST AND BACK. ON ARRIVAL, VITALS WERE 98.1-72-20-98%-178/84. LABS WRE OBTIANED. ABNORMAL LAB VALUES INCLUDED THE FOLLOWING: D-DIMER 527, GLUCOSE 138, AST 14. CARDIAC ENZYMES WITHIN NORMAL LIMITS. A BRAIN CT WAS OBTAINED AND REVEALED: NO SIGNIFICAN INTRACRANIAL ABNORMALITY IDENTIFIED. EKG REVEALED: SINUS RHYTHM WITH HR 74. A CHEST XRAY WAS OBTAINED AND REVEALED: NO EVIDENCE FOR ACUTE CARDIOPULMONARY DISEASE. A CHEST CTA WAS OBTAINED AND REVEALED: No evidence of a pulmonary embolus. Mildly dilated and atherosclerotic thoracic aorta with no aneurysm or dissection. Mild subpleural fibrosis or early infiltrates along the lung bases posterior laterally, suggest follow-up with chest x-rays to assure stability or resolution. Borderline enlarged lymph nodes in the mediastinum which are probably reactive in etiology, suggest follow-up. Mild adrenal thickening bilaterally which may be due to hyperplasia, recommend correlating with lab values. Borderline enlarged axillary lymph nodes which are more prominent on the right. Recommend clinical follow-up. 5.4 cm left renal cyst. SHE WAS GIVEN CATAPRES 0.2MG PO X 1 TABLET. BLOOD PRESSURE DID DECREASE TO 133/71. SHE WAS ADMITTED FOR FURTHER EVALUATION AND TREATMENT OF CHEST PAIN RULE OUT ACUTE [place] AND HYPERTENSION. WE PLAN TO OBTAIN SERIAL CARDIAC ENZYMES AND EKGS. WE WILL RESUME HOME MEDICATIONS. OTHERWISE, WE PLAN TO FOLLOW UP WITH AM LABS AND CONTINUE TO MONITOR. - Past Medical History Past Medical History: Hypertension, Dyslipidemia, Diabetes Additional Medical History: Cataracts, Tinnitus, Ear Infections, Diverticulosis, Constipation - Past Surgical History Surgical History: Hysterectomy Additional Surgical History: Carpal Tunnel Right Arm - Family History Family Medical History: Diabetes Mellitus, Cancer, [place], Coronary Artery Disease, Heart Failure, Sudden Cardiac , Hypertension - Social History Does patient currently use any type of tobacco product: No Have you used tobacco products in the last 12 months: No Type of Tobacco Use: None Does any household member use tobacco: No Alcohol Use: None Drug Use: None Prescription drug monitoring program results: PDMP reviewed and no concerns identified - Medications Home Medications: alcohol Allergy (Verified 11/22/17 16:26) CONTINUE taking the following medications acyclovir 1 applic TOPICAL TID 02/12/19 [History] famciclovir 500 mg PO Q8H 02/12/19 [History] gabapentin 600 mg PO HS 02/12/19 [History] lidocaine 1 applic TOPICAL . 4 - 5 TIMES A DAY PRN 02/12/19 [History] - Review of Systems Constitutional: Weakness Eyes: No Symptoms Reported ENT: No Symptoms Reported Respiratory: No Symptoms Reported Cardiovascular: Chest Pain, See HPI, Light Headedness Gastrointestinal: No Symptoms Reported Genitourinary: No Symptoms Reported Musculoskeletal: No Symptoms Reported Skin: No Symptoms Reported Neurological: See HPI, Weakness, Other (FACIAL TWITCHING, SYNCOPAL EPISODE ) - Physical Exam Vital Signs: Temperature 97.7 F Pulse Rate [Left Brachial] 76 Pulse Rate 59 Respiratory Rate 20 Blood Pressure [Left Arm] 148/80 Blood Pressure [Right Arm] 128/70 Blood Pressure 180/97 O2 Sat by Pulse Oximetry 99 Oriented: Normal Eyes: Normal Ear: Normal Nose: Normal Throat: Normal Respiratory: Diminished Throughout Cardiovascular: Normal. negative: S3, S4, Murmur : Normal Auscultation: Bowel Sounds: Normal Palpation: Normal Tenderness: Normal Skin: Normal Musculoskeletal: Normal Psychiatric: Normal Mood Description: Calm Affect: Normal Speech Pattern: Clear - Assessment/Plan (1) Chest pain, rule out acute myocardial infarction Status: Acute Plan: SERIAL CARDIAC ENZYMES AND EKG, CONTINUE TO MONITOR (2) Syncope Qualifiers: Syncope type: unspecified Qualified Code(s): R55 - Syncope and collapse Status: Acute (3) Diabetes mellitus Qualifiers: Diabetes mellitus type: type 2 Diabetes mellitus longterm insulin use: unspecified director long term care insulin use status Diabetes mellitus complication status: with unspecified complications Status: Chronic Plan: OTBS ACHS, SLIDING SCALE INSULIN, RESUME HOME MEDS, CONTINUE TO MONITOR (4) Hypertension Qualifiers: Hypertension type: essential hypertension Qualified Code(s): I10 - Essential (primary) hypertension Status: Chronic Plan: CONTINUE HOME MEDS (5) Shingles Qualifiers: Herpes zoster complications: without complications Qualified Code(s): B02.9 - Zoster without complications Status: Acute Plan: CONTINUE HOME MEDS - Allergies Allergies/Adverse Reactions: Allergies Allergy/AdvReac Type Severity Reaction Status Date / Time alcohol Allergy Verified 11/22/17 16:26
[2019-02-13] MEDS: NEURONTIN TAB 600 MG PO SCH (21:09)
[2019-02-13] MEDS: MILK OF MAGNESIA PO PRN (21:10)
[2019-02-13] MEDS: SNACK - Diabetic Appropriate PO SCH (21:24)
[2019-02-13] MEDS ORDERED: CATAPRES TAB 0.1 MG PO ONE (22:24)
[2019-02-13] MEDS ORDERED: CATAPRES TAB 0.1 MG ONE (22:25)
[2019-02-14] MEDS: NS 1000 ML 1,000 ML IV SCH ×4 (00:18→19:04)
[2019-02-14 05:33] LABS: BASOPHILS % (AUTO) 0.7 % (0.2-1.0); EOSINOPHILS # (AUTO) 0.1 x10^3/uL (0.0-0.2); EOSINOPHILS % (AUTO) 3.1 % (0.9-2.9); HEMATOCRIT 40.1 % (36.0-47.0); HEMOGLOBIN 13.7 g/dL (12.0-16.0); LYMPHOCYTES # (AUTO) 1.7 X10^3/uL (1.3-2.9); LYMPHOCYTES % (AUTO) 44.3 % (21.0-51.0); MEAN CORPUSCULAR HEMOGLOBIN 30.3 pg (27.0-34.0); MEAN CORPUSCULAR HGB CONC 34.1 g/dL (33.0-35.0); MEAN CORPUSCULAR VOLUME 88.8 fL (80.0-100.0); MEAN PLATELET VOLUME 8.8 fL (7.4-11.0); MONOCYTES # (AUTO) 0.6 x10^3/uL (0.3-0.8); MONOCYTES % (AUTO) 15.5 % (0.0-13.0); NEUTROPHILS # (AUTO) 1.4 x10^3/uL (2.2-4.8); NEUTROPHILS % (AUTO) 36.4 % (42.0-75.0); PLATELET COUNT 177 X10^3/uL (150.0-450.0); RED BLOOD COUNT 4.52 X10^6/uL (3.5-5.4); RED CELL DISTRIBUTION WIDTH 13.1 % (11.6-16.5); WHITE BLOOD COUNT 3.9 X10^3/uL (3.6-10.0)
[2019-02-14 05:41] LABS: ALANINE AMINOTRANSFERASE 22 Units/L (12-78); ALBUMIN 3.1 g/dL (3.4-5.0); ALKALINE PHOSPHATASE 68 Units/L (46-116); ASPARTATE AMINO TRANSFERASE 14 Units/L (15-37); BLOOD UREA NITROGEN 11 mg/dL (7-18); CARBON DIOXIDE 30.4 mmol/L (21-32); CHLORIDE 106 mmol/L (98-107); COR CA(FOR HYPOALB) 9.7 mg/dL (8.5-10.1); COR NA(FOR HYPERGLY) 143 mmol/L (136-145); CREATININE 0.66 mg/dL (0.55-1.02); SODIUM 143 mmol/L (136-145); TOTAL PROTEIN 6.2 g/dL (6.4-8.2); eGFR NON BLACK RACES > 60 (>60)
[2019-02-14] MEDS: FAMCICLOVIR 500 MG PO SCH ×3 (05:53→21:45)
[2019-02-14] MEDS: ZOVIRAX TOP SCH ×3 (05:54→21:42)
[2019-02-14] MEDS: NITROSTAT SL PRN ×2 (06:10→06:20)
[2019-02-14 06:53] LABS: CKMB % 3.3 % (<4); CREATINE KINASE 30 Units/L (26-192); CREATINE KINASE MB < 1.0 ng/mL (0-4.0); TROPONIN I < 0.02 ng/mL (0-1.5)
[2019-02-14] MEDS: ASPIRIN 81 MG CHEWTAB PO SCH (09:01)
[2019-02-14] MEDS: NORVASC TAB 5 MG PO SCH (09:02)
[2019-02-14] MEDS: HYZAAR 50/12.5 MG PO SCH (09:02)
[2019-02-14] MEDS: HumuLIN 70/30 (NovoLIN 70/30) SC SCH ×2 (09:17→21:38)
[2019-02-14 10:00] LABS: CKMB % 2.9 % (<4); CREATINE KINASE 34 Units/L (26-192); CREATINE KINASE MB < 1.0 ng/mL (0-4.0); TROPONIN I < 0.02 ng/mL (0-1.5)
--- NOTE | 2019-02-14 10:26 | RAD ---
HISTORY: Chest pain Study: PA and lateral views of the chest Comparison: CT 02/12/2019 Findings: No infiltrate, effusion or pneumothorax identified. The cardiac and mediastinal contours are within normal limits. The soft tissues are unremarkable. IMPRESSION: 1. No acute cardiopulmonary abnormality. Reported By:
[2019-02-14 10:40] LABS: ABG BASE EXCESS 4.6 mmol/L (-2.0-2.0); ABG HCO3 28.3 mmol/L (22-26)
[2019-02-14 10:42] LABS: ABG ALLEN TEST POS
[2019-02-14] MEDS: HumuLIN R SUBCUT PRN ×2 (13:05→17:13)
[2019-02-14] MEDS: LEVSIN/MAALOX/LIDOC VISC PO SCH ×3 (13:05→21:40)
[2019-02-14 15:57] LABS: CREATINE KINASE 33 Units/L (26-192); CREATINE KINASE MB < 1.0 ng/mL (0-4.0); TROPONIN I < 0.02 ng/mL (0-1.5)
--- NOTE | 2019-02-14 17:34 | PCM.PROG ---
Progress Note - Progress Note for Day of Date of Exam: 02/14/19 - Subjective Subjective: 63BF ER ADMISSION WITH CHEST PAIN/PRESSURE, SOB R/O AMI. PT HAD SERIAL CE AND EKG WITHOUT ACUTE CHANGES. PT CONTINUES TO CO CHEST PAIN THIS AM, CO PRESSURE HOLDING MID CHEST. PT DENIES ANY PREVIOUS STRESS TEST OR CARDIAC CATH. PT CO INCREASED GAS AND REFLUX. WE ORDERED REPEAT CE'S AND EKG, GI COCKTAIL AND PEPCID IV BID. WILL CONTINUE BP CONTROL - Past Medical Family Social History Past Med/Fam/Surg Hx: No changes since H&P Allergies: Allergies alcohol Allergy (Verified 11/22/17 16:26) - Review of Systems ROS: No change since H&P - Vital Signs and I&O's Vital Signs: Temperature 97.7 F Pulse Rate [Left Brachial] 80 Pulse Rate 59 Respiratory Rate 20 Blood Pressure [Left Arm] 134/71 Blood Pressure [Right Arm] 128/70 Blood Pressure 180/97 O2 Sat by Pulse Oximetry 97 Intake and Output: Intake & Output 02/12/19 02/13/19 02/14/19 02/15/19 11:59 11:59 11:59 11:59 Intake Total 1080 / 1080 1000 / 1000 760 / 760 Balance 1080 / 1080 1000 / 1000 760 / 760 - Physical Exam Oriented: Normal Eyes: Normal Ear: Normal Nose: Normal Throat: Normal Respiratory: Diminished Cardiovascular: Normal. negative: S3, S4, Murmur : Normal Auscultation: Bowel Sounds: Normal Tenderness: Epigastric, Mild Skin: Normal Musculoskeletal: Normal Psychiatric: Normal Mood Description: Calm Affect: Normal Speech Pattern: Clear - Laboratory and Diagnostics Result Diagrams: 02/14/19 04:26 02/14/19 04:26 Labs: Laboratory WBC 3.9 X10^3/uL (3.6-10.0) 02/14/19 04:26 RBC 4.52 X10^6/uL (3.5-5.4) 02/14/19 04:26 Hgb 13.7 g/dL (12.0-16.0) 02/14/19 04:26 Hct 40.1 % (36.0-47.0) 02/14/19 04:26 MCV 88.8 fL (80.0-100.0) 02/14/19 04:26 MCH 30.3 pg (27.0-34.0) 02/14/19 04:26 MCHC 34.1 g/dL (33.0-35.0) 02/14/19 04:26 RDW 13.1 % (11.6-16.5) 02/14/19 04:26 Plt Count 177 X10^3/uL (150.0-450.0) 02/14/19 04:26 MPV 8.8 fL (7.4-11.0) 02/14/19 04:26 Neut % (Auto) 36.4 % (42.0-75.0) L 02/14/19 04:26 Lymph % (Auto) 44.3 % (21.0-51.0) 02/14/19 04:26 [place] % (Auto) 15.5 % (0.0-13.0) H 02/14/19 04:26 Eos % (Auto) 3.1 % (0.9-2.9) H 02/14/19 04:26 Baso % (Auto) 0.7 % (0.2-1.0) 02/14/19 04:26 Neut # (Auto) 1.4 x10^3/uL (2.2-4.8) L 02/14/19 04:26 Lymph # (Auto) 1.7 X10^3/uL (1.3-2.9) 02/14/19 04:26 [place] # (Auto) 0.6 x10^3/uL (0.3-0.8) 02/14/19 04:26 Eos # (Auto) 0.1 x10^3/uL (0.0-0.2) 02/14/19 04:26 Baso # (Auto) 0.0 X10^3/uL (0.0-0.1) 02/14/19 04:26 Absolute Nucleated RBC 0.1 /100WBC 02/14/19 04:26 INR Target Range - 02/13/19 04:29 INR 0.94 (0.8-1.3) 02/13/19 04:29 APTT 29.9 SECONDS (22.9-36.5) 02/13/19 04:29 PTT Comment - 02/13/19 04:29 D-Dimer 527 ng/mL (0-400) H* 02/12/19 07:35 Sample Site Lr 02/14/19 10:26 ABG pH 7.480 (7.35-7.45) H 02/14/19 10:26 ABG pCO2 38.0 mmHg (35.0-45.0) 02/14/19 10:26 ABG pO2 104.0 mmHg (80.0-100.0) H 02/14/19 10:26 ABG HCO3 28.3 mmol/L (22-26) H 02/14/19 10:26 ABG O2 Saturation 98.0 % (90-100) 02/14/19 10:26 ABG Base Excess 4.6 mmol/L (-2.0-2.0) H 02/14/19 10:26 Stephon Test Pos 02/14/19 10:26 A-a Gradient -2.0 mmHg 02/14/19 10:26 FiO2 21.0 02/14/19 10:26 Blood Gas Comments Pt norma well eb 02/14/19 10:26 Sodium 143 mmol/L (136-145) 02/14/19 04:26 Corrected Sodium 143 mmol/L (136-145) 02/14/19 04:26 Potassium 3.9 mmol/L (3.5-5.1) 02/14/19 04:26 Chloride 106 mmol/L (98-107) 02/14/19 04:26 Carbon Dioxide 30.4 mmol/L (21-32) 02/14/19 04:26 BUN 11 mg/dL (7-18) 02/14/19 04:26 Creatinine 0.66 mg/dL (0.55-1.02) 02/14/19 04:26 Est GFR (MDRD) Af Amer > 60 (>60) 02/14/19 04:26 Est GFR (MDRD) Non-Af > 60 (>60) 02/14/19 04:26 Glucose 116 mg/dL (65-99) H 02/14/19 04:26 POC Glucose (mg/dL) 189 mg/dL (65-99) H 02/14/19 17:07 Calcium 9.0 mg/dL (8.5-10.1) 02/14/19 04:26 Corrected Calcium 9.7 mg/dL (8.5-10.1) 02/14/19 04:26 Magnesium 2.1 mg/dL (1.7-2.9) 02/13/19 04:29 Total Bilirubin 0.50 mg/dL (0.2-1.0) 02/14/19 04:26 AST 14 Units/L (15-37) L 02/14/19 04:26 ALT 22 Units/L (12-78) 02/14/19 04:26 Alkaline Phosphatase 68 Units/L (46-116) 02/14/19 04:26 Creatine Kinase 33 Units/L (26-192) 02/14/19 15:28 CK-MB (CK-2) < 1.0 ng/mL (0-4.0) 02/14/19 15:28 CK/CKMB % Calc 3.0 % (<4) 02/14/19 15:28 Troponin I < 0.02 ng/mL (0-1.5) 02/14/19 15:28 Total Protein 6.2 g/dL (6.4-8.2) L 02/14/19 04:26 Albumin 3.1 g/dL (3.4-5.0) L 02/14/19 04:26 Globulin 3.1 g/dL (2.5-4.5) 02/14/19 04:26 Albumin/Globulin Ratio 1.0 Ratio (1.1-2.1) L 02/14/19 04:26 Triglycerides 173 mg/dL (0-150) H 02/13/19 04:29 Cholesterol 255 mg/dL (0-200) H 02/13/19 04:29 LDL Cholesterol, Calc 158 mg/dL (0-100) H 02/13/19 04:29 HDL Cholesterol 62 mg/dL (40-60) H 02/13/19 04:29 Cholesterol/HDL Ratio 4.1 (0.0-5.0) 02/13/19 04:29 Specimen Type Clean catch urine 02/12/19 14:17 Urine Color Yellow (YELLOW) 02/12/19 14:17 Urine Appearance Clear (CLEAR) 02/12/19 14:17 Urine pH 7.0 (5.0 - 8.0) 02/12/19 14:17 Ur Specific [place] 1.005 (1.000-1.030) 02/12/19 14:17 Urine Protein 1+ (NEGATIVE) 02/12/19 14:17 Urine Glucose (UA) 2+ (NEGATIVE) 02/12/19 14:17 Urine Ketones Negative (NEGATIVE) 02/12/19 14:17 Urine Occult Blood Negative (NEGATIVE) 02/12/19 14:17 Urine Nitrite Negative (NEGATIVE) 02/12/19 14:17 Urine Bilirubin Negative (NEGATIVE) 02/12/19 14:17 Urine Urobilinogen Normal (NORMAL) 02/12/19 14:17 Ur Leukocyte Esterase Negative (NEGATIVE) 02/12/19 14:17 Urine RBC 0-2 /HPF (NONE SEEN) 02/12/19 14:17 Urine WBC 0-2 /HPF (NONE SEEN) 02/12/19 14:17 Ur Squamous Epith Cells Few /HPF (NEGATIVE) 02/12/19 14:17 Urine Bacteria Trace /HPF (NEGATIVE) 02/12/19 14:17 Urine Mucus Few /HPF (NEGATIVE) 02/12/19 14:17 Ur Culture Indicated? No/not indicated 02/12/19 14:17 - Plan (1) Chest pain Status: Acute Qualifiers: Chest pain type: unspecified Qualified Code(s): R07.9 - Chest pain, unspecified Plan: SERIAL CE, EKG. REPEAT CXR THIS AM, RESP CARE. BP CONTROL, IV PEPCID. GI COCKTAIL (2) GERD (gastroesophageal reflux disease) Status: Acute (3) Hypertension Status: Chronic Qualifiers: Hypertension type: essential hypertension Qualified Code(s): I10 - Essential (primary) hypertension Plan: CONTINUE HOME MEDS (4) Diabetes mellitus Status: Chronic Qualifiers: Diabetes mellitus type: type 2 Diabetes mellitus usp insulin use: unspecified long term care social worker insulin use status Diabetes mellitus complication status: with unspecified complications Plan: OTBS ACHS, SLIDING SCALE INSULIN, RESUME HOME MEDS, CONTINUE TO MONITOR
[2019-02-14] MEDS: PEPCID 20 MG IV PREMIX* 20 MG/50 ML BAG IV SCH ×2 (18:52→21:40)
[2019-02-14] MEDS: SNACK - Diabetic Appropriate PO SCH (21:27)
[2019-02-14] MEDS: NORCO 7.5/325 MG TAB PO PRN (21:41)
[2019-02-14] MEDS: NEURONTIN TAB 600 MG PO SCH (21:41)
[2019-02-14] MEDS: MILK OF MAGNESIA PO PRN (21:45)
[2019-02-14 21:46] LABS: CKMB % 1.3 % (<4); CREATINE KINASE 79 Units/L (26-192); CREATINE KINASE MB < 1.0 ng/mL (0-4.0); TROPONIN I < 0.02 ng/mL (0-1.5)
[2019-02-15 05:09] LABS: BASOPHILS % (AUTO) 0.5 % (0.2-1.0); EOSINOPHILS # (AUTO) 0.1 x10^3/uL (0.0-0.2); EOSINOPHILS % (AUTO) 2.9 % (0.9-2.9); HEMATOCRIT 40.3 % (36.0-47.0); HEMOGLOBIN 13.5 g/dL (12.0-16.0); LYMPHOCYTES # (AUTO) 1.9 X10^3/uL (1.3-2.9); LYMPHOCYTES % (AUTO) 50.9 % (21.0-51.0); MEAN CORPUSCULAR HGB CONC 33.6 g/dL (33.0-35.0); MEAN CORPUSCULAR VOLUME 89.2 fL (80.0-100.0); MEAN PLATELET VOLUME 8.5 fL (7.4-11.0); MONOCYTES # (AUTO) 0.5 x10^3/uL (0.3-0.8); MONOCYTES % (AUTO) 13.9 % (0.0-13.0); NEUTROPHILS # (AUTO) 1.2 x10^3/uL (2.2-4.8); NEUTROPHILS % (AUTO) 31.8 % (42.0-75.0); PLATELET COUNT 173 X10^3/uL (150.0-450.0); RED BLOOD COUNT 4.52 X10^6/uL (3.5-5.4); RED CELL DISTRIBUTION WIDTH 13.1 % (11.6-16.5); WHITE BLOOD COUNT 3.8 X10^3/uL (3.6-10.0)
[2019-02-15 05:18] LABS: ALANINE AMINOTRANSFERASE 18 Units/L (12-78); ALKALINE PHOSPHATASE 69 Units/L (46-116); ASPARTATE AMINO TRANSFERASE 14 Units/L (15-37); BLOOD UREA NITROGEN 12 mg/dL (7-18); CALCIUM 9.1 mg/dL (8.5-10.1); CARBON DIOXIDE 29.9 mmol/L (21-32); CHLORIDE 107 mmol/L (98-107); COR CA(FOR HYPOALB) 9.9 mg/dL (8.5-10.1); COR NA(FOR HYPERGLY) 144 mmol/L (136-145); CREATININE 0.76 mg/dL (0.55-1.02); SODIUM 143 mmol/L (136-145); TOTAL PROTEIN 6.5 g/dL (6.4-8.2); eGFR NON BLACK RACES > 60 (>60)
[2019-02-15] MEDS: FAMCICLOVIR 500 MG PO SCH (06:08)
[2019-02-15] MEDS: NS 1000 ML 1,000 ML IV SCH (06:09)
[2019-02-15] MEDS: ZOVIRAX TOP SCH (06:09)
[2019-02-15] MEDS: PEPCID 20 MG IV PREMIX* 20 MG/50 ML BAG IV SCH (08:45)
[2019-02-15] MEDS: ASPIRIN 81 MG CHEWTAB PO SCH (08:46)
[2019-02-15] MEDS: NORVASC TAB 5 MG PO SCH (08:47)
[2019-02-15] MEDS: HumuLIN 70/30 (NovoLIN 70/30) SC SCH (08:47)
[2019-02-15] MEDS: HYZAAR 50/12.5 MG PO SCH (08:47)
[2019-02-15] MEDS: LEVSIN/MAALOX/LIDOC VISC PO SCH (08:47)
[2019-02-15 08:55] VITALS: BP 178/85
== END 2019-02-15 12:50 | disposition home or self-care (01) ==
LOC: ER 07:32 → MED/SURG 07:32
PROVIDERS: ADMIT Internal Medicine; ATTEND Internal Medicine
DX: Z79.4 Long term (current) use of insulin; R07.89 Other chest pain; E78.2 Mixed hyperlipidemia; K21.9 Gastro-esophageal reflux disease without esophagitis; I10 Essential (primary) hypertension; E11.65 Type 2 diabetes mellitus with hyperglycemia; B02.9 Zoster without complications; R55 Syncope and collapse
CPT/HCPCS: 36415; 36600; 70450; 71010; 71020; 71045; 71046; 71275; 80053; 80061; 81001; 82550; 82553; 82803; 83735; 84484; 85025; 85378; 85610; 85730; 93005; 94760; 96367; 96372; 96374; 99284; A4216; A4222; S0028; G0378; J1815; J7030

== ENCOUNTER 2020-12-09 12:09 | Inpatient (IN) ==
--- NOTE | 2020-12-09 13:32 | DR.GENAD ---
HPI Time Seen Time Seen by Provider: 12/09/20 13:05 PCP Primary Care Physician: CLARIBEL HPI Comment HPI Comment: A 65 y/o female presenting with Lt. wrist pain that's been hurting her since forever. She denies associated trauma. Her secondary complain is of suprapubic/allison-umbilical discomfort, dysuria and urinary frequency. She denies fever. Complaint/Symptoms Chief Complaint:: PT. C/O LEFT ARM PAIN AND ABDOMINAL PAIN X 2 DAYS. PT. ALSO C/O NAUSEA AND DYSURIA. DENIES INJURY TO ARM. COVID-19 Coronavirus risk:travel/contact w/high risk person: No Has patient experienced Coronavirus symptoms: No Nurses notes reviewed Nurses Notes Review: Yes Source History Provided: Patient Mode of Arrival Mode of Arrival: Ambulatory Timing Onset of Chief Complaint: 12/07/20 Came on: Gradually Duration Duration: Constant Location Location: Lt. wrist PMH PMH Past Medical History: Yes Past Medical History: Diabetes, Dyslipidemia and Hypertension Past Surgical History: Yes Surgical History: Hysterectomy Family History History of Family Medical Conditions: Yes Family Medical History: Diabetes Mellitus, Cancer, [place], Coronary Artery Disease, Heart Failure, Sudden Cardiac and Hypertension Social History Does patient currently use any type of tobacco product: No Have you used tobacco products in the last 12 months: No Type of Tobacco Use: None Does any household member use tobacco: No Alcohol Use: None Do you use any recreational Drugs:: No Lives With: Family Lives Where: Home Travel Risk Coronavirus risk:travel/contact w/high risk person: No Has patient experienced Coronavirus symptoms: No Infectious screening In the last 2 months have you had wt loss of >10#?: NO Have you had fever, night sweats or hemotysis?: No Have you traveled outside the country in the last 6 months?: No Isolation: Standard ROS Review of Systems Constitutional: No Symptoms Reported Eyes: No Symptoms Reported ENTM: No Symptoms Reported Respiratoy: No Symptoms Reported Cardiovascular: No Symptoms Reported Gastrointestinal/Abdominal: Abdominal Pain (suprapubic and allison-umbilical. ) Genitourinary: Dysuria and Frequency Neurological: No Symptoms Reported Musculoskeletal: No Symptoms Reported Integumentary: No Symptoms Reported Hematologic/Lymphatic: No Symptoms Reported Endocrine: No Symptoms Reported Psychiatric: No Symptoms Reported PE Vital Signs Vitals: Temperature 98.8 F Pulse Rate 106 Respiratory Rate 20 Blood Pressure [Left Arm] 207/99 Blood Pressure [Right Arm] 128/70 Blood Pressure 142/80 O2 Sat by Pulse Oximetry 97 General Limitations: No Limitations General Appearance: Alert and In No Apparent Distress Head Head Exam: Normal Inspection, Atraumatic and Normocephalic Eyes Eye exam: Normal Appearance and EOMI ENT ENT Exam: Normal Exam, Normal Oropharynx, Normal External Ear Exam and Mucous Membranes Moist Neck Neck Exam: Normal Inspection, Full ROM and Trachea Midline Chest Chest Inspection: Normal Inspection and Symmetric Chest Wall Rise Respiratory Respiratory Exam: Normal Lung Sounds Bilat Cardiovascular Cardiovascular Exam: Regular Rate, Normal Rhythm, Normal Heart Sounds, +S1 and +S2 Abdominal Exam Abdominal Exam: Normal Inspection, Normal Bowel Sounds, Soft and Tenderness Abdominal Tenderness: Suprapubic Extremities Extremities Exam: Normal Inspection and Tenderness (Lt. wrist, over dorsal surce at base of 1st carpal boce. ) Back Back Exam: Normal Inspection and Full ROM Neurologic Neurological Exam: Alert and Oriented X3 Psychiatric Psychiatric Exam: Normal Affect and Normal Mood Skin Skin Exam: Dry and Normal Color MDM Differential Diagnosis Differential Diagnosis: UTI, Ischemia mesentary COURSE Treatment Treatment: Name: JEAN-PAUL MCGRAW [facility]#: [id number]: [id number] : 1955Sex: FLocation: ER Order Number(s): [id number](s):WRIST, LEFT Ordering Physician: MIKE WALKER Primary Care: Nathanael Aldrich Service Date: 12/09/20 Service Time: 1320 HISTORY SWELLING TO LEFT WRIST AREA HYST, HTN, DM, ASTHMA, THROAT CA STUDY WRIST, LEFT COMPARISON None FINDINGS There is no evidence of acute fractures There is alignment in the lateral view, there is a negative ulnar variant, the carpal bones demonstrate, no focal fracture. There is a focal lucent soft tissue mass in the distal ulna without extension into the carpal region IMPRESSION No acute fractures. Focal lucent mass lateral to the distal ulna. Nonspecific follow with ultrasound can be performed, it could represent hematoma or a lipoma. However is nonspecific Electronically signed by: Barby Piper (Dec 09, 2020 14:05:17) Report Electronically signed: 12/09/20 [id number] CC: Mike Walker Consultation Consultation Comments: [id number] [id number] : 1955Sex: FLocation: ER Order Number(s): [id number](s):ABDOMEN/PELVIS WITH CON Ordering Physician: MIKE WALKER Primary Care: Nathanael Aldrich Service Date: 12/09/20 Service Time: 1503 HISTORY ABD PAIN STUDY CT ABDOMEN/PELVIS WITH CON COMPARISON None TECHNIQUE CT images of the abdomen and pelvis were obtained with IV contrast. Dose reduction techniques including Automated Exposure Control (AEC) and adjustment of mA and kV were utilized. FINDINGS There is generalized osteopenia. There is advanced L5-S1 spondylosis. No acute osseous abnormality. The lung bases are clear. There is small hiatal hernia of the stomach, which is otherwise unremarkable. The liver is diffusely hypoattenuating, but normal in size and configuration, without focal lesion. The gallbladder, spleen, pancreas, adrenals, and kidneys are unremarkable aside from simple appearing left renal cyst. No radiopaque ureteral stone or hydroureter identified. Colonic diverticulosis. There is thickening with adjacent fat stranding involving a short segment of the sigmoid. No gross free air or organizing collection. Otherwise, no significant thickening or dilatation of the remaining lower GI tract. Normal appendix. The uterus is absent. The bladder and rectum are unremarkable. No free fluid or adenopathy. An intermuscular lipoma interposed between the left gluteus minimus and medius muscles is incidentally noted. IMPRESSION Uncomplicated acute sigmoid diverticulitis. Hepatic steatosis, small hiatal hernia, and other chronic findings as above. Electronically signed by: VANESA CISNEROS (Dec 09, 2020 17:35:39) Report Electronically signed: 12/09/20 [id number] CC: Mike Walker Education/Counseling Education/Counseling: Patient, Education and Counseling Educated On: Treatment, Diagnosis, Prognosis and Needs for Follow Up ROR Labs Reviewed Laboratory Results Reviewed?: Yes Result Diagrams: 12/09/20 13:45 12/09/20 13:45 Laboratory: WBC 8.0 X10^3/uL (3.6-10.0) 12/09/20 13:45 RBC 4.42 X10^6/uL (3.5-5.4) 12/09/20 13:45 Hgb 13.2 g/dL (12.0-16.0) 12/09/20 13:45 Hct 39.6 % (36.0-47.0) 12/09/20 13:45 MCV 89.6 fL (80.0-100.0) 12/09/20 13:45 MCH 29.9 pg (27.0-34.0) 12/09/20 13:45 MCHC 33.3 g/dL (33.0-35.0) 12/09/20 13:45 RDW 13.1 % (11.6-16.5) 12/09/20 13:45 Plt Count 159 X10^3/uL (150.0-450.0) 12/09/20 13:45 MPV 8.5 fL (7.4-11.0) 12/09/20 13:45 Neut % (Auto) 68.1 % (42.0-75.0) 12/09/20 13:45 Lymph % (Auto) 20.5 % (21.0-51.0) L 12/09/20 13:45 [place] % (Auto) 10.3 % (0.0-13.0) 12/09/20 13:45 Eos % (Auto) 0.8 % (0.9-2.9) L 12/09/20 13:45 Baso % (Auto) 0.3 % (0.2-1.0) 12/09/20 13:45 Neut # (Auto) 5.4 x10^3/uL (2.2-4.8) H 12/09/20 13:45 Lymph # (Auto) 1.6 X10^3/uL (1.3-2.9) 12/09/20 13:45 [place] # (Auto) 0.8 x10^3/uL (0.3-0.8) 12/09/20 13:45 Eos # (Auto) 0.1 x10^3/uL (0.0-0.2) 12/09/20 13:45 Baso # (Auto) 0.0 X10^3/uL (0.0-0.1) 12/09/20 13:45 Absolute Nucleated RBC 0.1 /100WBC 12/09/20 13:45 ESR 72 MM/HOUR (0-20) H 12/09/20 13:45 Sodium 140 mmol/L (136-145) 12/09/20 13:45 Corrected Sodium 141 mmol/L (136-145) 12/09/20 13:45 Potassium 3.5 mmol/L (3.5-5.1) 12/09/20 13:45 Chloride 104 mmol/L (98-107) 12/09/20 13:45 Carbon Dioxide 29.8 mmol/L (21-32) 12/09/20 13:45 BUN 13 mg/dL (7-18) 12/09/20 13:45 Creatinine 0.88 mg/dL (0.55-1.02) 12/09/20 13:45 Est GFR (MDRD) Af Amer > 60 (>60) 12/09/20 13:45 Est GFR (MDRD) Non-Af > 60 (>60) 12/09/20 13:45 Glucose 128 mg/dL (65-99) H 12/09/20 13:45 Calcium 9.4 mg/dL (8.5-10.1) 12/09/20 13:45 Corrected Calcium TNP 12/09/20 13:45 Total Bilirubin 1.00 mg/dL (0.2-1.0) 12/09/20 13:45 AST 9 Units/L (15-37) L 12/09/20 13:45 ALT 24 Units/L (12-78) 12/09/20 13:45 Alkaline Phosphatase 72 Units/L (46-116) 12/09/20 13:45 Total Protein 7.5 g/dL (6.4-8.2) 12/09/20 13:45 Albumin 3.7 g/dL (3.4-5.0) 12/09/20 13:45 Globulin 3.8 g/dL (2.5-4.5) 12/09/20 13:45 Albumin/Globulin Ratio 1.0 Ratio (1.1-2.1) L 12/09/20 13:45 Specimen Type Clean catch urine 12/09/20 13:24 Urine Color Yellow (YELLOW) 12/09/20 13:24 Urine Appearance Clear (CLEAR) 12/09/20 13:24 Urine pH 6.5 (5.0 - 8.0) 12/09/20 13:24 Ur Specific [place] 1.010 (1.000-1.030) 12/09/20 13:24 Urine Protein Negative (NEGATIVE) 12/09/20 13:24 Urine Glucose (UA) Negative (NEGATIVE) 12/09/20 13:24 Urine Ketones Negative (NEGATIVE) 12/09/20 13:24 Urine Occult Blood Negative (NEGATIVE) 12/09/20 13:24 Urine Nitrite Negative (NEGATIVE) 12/09/20 13:24 Urine Bilirubin Negative (NEGATIVE) 12/09/20 13:24 Urine Urobilinogen Normal (NORMAL) 12/09/20 13:24 Ur Leukocyte Esterase Negative (NEGATIVE) 12/09/20 13:24 Opioid Opioid Risk Tool Age (Denny box if 16-45): No History of Preadolescent Sexual Abuse: No Total: 0 Total Score Risk Category: Low Risk Copyright: Jonah NIETO predicting aberrant behaviors Diagnosis Discharge Problem: Sigmoid diverticulitis Hypertension Qualifiers: Hypertension type: essential hypertension Qualified Code(s): I10 - Essential (primary) hypertension Diabetes mellitus Qualifiers: Diabetes mellitus type: type 2 Diabetes mellitus correction insulin use: with correction use Diabetes mellitus complication status: without complication Qualified Code(s): E11.9 - Type 2 diabetes mellitus without complications Hyperlipidemia Qualifiers: Hyperlipidemia type: mixed hyperlipidemia Qualified Code(s): E78.2 - Mixed hyperlipidemia Osteoarthritis Qualifiers: Osteoarthritis location: multiple joints Osteoarthritis type: primary Qualified Code(s): M89.49 - Other hypertrophic osteoarthropathy, multiple sites GERD (gastroesophageal reflux disease) Qualifiers: Esophagitis presence: without esophagitis Qualified Code(s): K21.9 - Gastro- esophageal reflux disease without esophagitis ADDITIONAL NOTES Additional Notes Additional Notes: [id number]: [id number] : 1955Sex: FLocation: ER Order Number(s): [id number](s):HAND, LEFT Ordering Physician: MIKE WALKER Primary Care: Nathanael Aldrich Service Date: 12/09/20 Service Time: 1320 HISTORY SWELLING TO LEFT WRIST AREA HYST, HTN, DM, ASHTMA, THROAT CA STUDY Left hand x-rays three views COMPARISON None FINDINGS No acute cortical disruption or dislocation is identified. There is a focal lucent soft tissue mass in the distal ulna region. There is no acute fractures. Carpal bones demonstrate no abnormality, there is no significant arthritic changes of the metacarpal phalangeal joints, the distal interphalangeal joints demonstrate no focal abnormalities, there is mild arthritic changes in the 2nd proximal interphalangeal joint IMPRESSION No acute fractures, lucent soft tissue i mass n the distal ulna as described on prior left wrist x-ray. Electronically signed by: Barby Piper (Dec 09, 2020 14:22:08) Report Electronically signed: 12/09/20 1424 CC: Mike Walker
[2020-12-09 14:00] LABS: BASOPHILS % (AUTO) 0.3 % (0.2-1.0); EOSINOPHILS # (AUTO) 0.1 x10^3/uL (0.0-0.2); EOSINOPHILS % (AUTO) 0.8 % (0.9-2.9); HEMATOCRIT 39.6 % (36.0-47.0); HEMOGLOBIN 13.2 g/dL (12.0-16.0); LYMPHOCYTES # (AUTO) 1.6 X10^3/uL (1.3-2.9); LYMPHOCYTES % (AUTO) 20.5 % (21.0-51.0); MEAN CORPUSCULAR HEMOGLOBIN 29.9 pg (27.0-34.0); MEAN CORPUSCULAR HGB CONC 33.3 g/dL (33.0-35.0); MEAN CORPUSCULAR VOLUME 89.6 fL (80.0-100.0); MEAN PLATELET VOLUME 8.5 fL (7.4-11.0); MONOCYTES # (AUTO) 0.8 x10^3/uL (0.3-0.8); MONOCYTES % (AUTO) 10.3 % (0.0-13.0); NEUTROPHILS # (AUTO) 5.4 x10^3/uL (2.2-4.8); NEUTROPHILS % (AUTO) 68.1 % (42.0-75.0); PLATELET COUNT 159 X10^3/uL (150.0-450.0); RED BLOOD COUNT 4.42 X10^6/uL (3.5-5.4); RED CELL DISTRIBUTION WIDTH 13.1 % (11.6-16.5)
--- NOTE | 2020-12-09 14:07 | RAD ---
HISTORYSWELLING TO LEFT WRIST AREA HYST, HTN, DM, ASTHMA, THROAT CASTUDYWRIST, LEFTCOMPARISONNoneFINDINGSThere is no evidence of acute fracturesThere is alignment in the lateral view, there is a negative ulnar variant, the carpal bones demonstrate, no focal fracture. There is a focal lucent soft tissue mass in the distal ulna without extension into the carpal regionIMPRESSIONNo acute fractures. Focal lucent mass lateral to the distal ulna. Nonspecific follow with ultrasound can be performed, it could represent hematoma or a lipoma. However is nonspecificElectronically signed by: Barby Piper (Dec 09, 2020 14:05:17)
[2020-12-09 14:24] LABS: BILIRUBIN,URINE NEGATIVE (NEGATIVE); BLOOD/HEMOGLOBIN,URINE NEGATIVE (NEGATIVE); GLUCOSE, URINE NEGATIVE (NEGATIVE); KETONES,URINE NEGATIVE (NEGATIVE); LEUKOCYTE ESTERASE ,URINE NEGATIVE (NEGATIVE); NITRITES,URINE NEGATIVE (NEGATIVE); PH,URINE 6.5 (5.0 - 8.0); PROTEIN,URINE NEGATIVE (NEGATIVE); UROBILINOGEN,URINE NORMAL (NORMAL)
--- NOTE | 2020-12-09 14:24 | RAD ---
HISTORYSWELLING TO LEFT WRIST AREA HYST, HTN, DM, ASHTMA, THROAT CASTUDYLeft hand x-rays three viewsCOMPARISONNoneFINDINGSNo acute cortical disruption or dislocation is identified. There is a focal lucent soft tissue mass in the distal ulna region. There is no acute fractures. Carpal bones demonstrate no abnormality, there is no significant arthritic changes of the metacarpal phalangeal joints, the distal interphalangeal joints demonstrate no focal abnormalities, there is mild arthritic changes in the 2nd proximal interphalangeal jointIMPRESSIONNo acute fractures, lucent soft tissue i mass n the distal ulna as described on prior left wrist x-ray.Electronically signed by: Barby Piper (Dec 09, 2020 14:22:08)
[2020-12-09 14:41] LABS: APPEARANCE,URINE CLEAR (CLEAR); COLOR,URINE YELLOW (YELLOW)
[2020-12-09 14:46] LABS: ERYTHROCYTE SEDIMENTATION RATE 72 MM/HOUR (0-20)
[2020-12-09 14:50] LABS: CARBON DIOXIDE 29.8 mmol/L (21-32); CHLORIDE 104 mmol/L (98-107); SODIUM 140 mmol/L (136-145)
[2020-12-09 14:51] LABS: ALANINE AMINOTRANSFERASE 24 Units/L (12-78); ALBUMIN 3.7 g/dL (3.4-5.0); ALKALINE PHOSPHATASE 72 Units/L (46-116); ASPARTATE AMINO TRANSFERASE 9 Units/L (15-37); BLOOD UREA NITROGEN 13 mg/dL (7-18); CALCIUM 9.4 mg/dL (8.5-10.1); COR NA(FOR HYPERGLY) 141 mmol/L (136-145); CREATININE 0.88 mg/dL (0.55-1.02); TOTAL PROTEIN 7.5 g/dL (6.4-8.2); eGFR NON BLACK RACES > 60 (>60)
[2020-12-09] MEDS ORDERED: SOLU-Medrol 40 MG VIAL IM ONE (15:00)
[2020-12-09] MEDS ORDERED: ZOFRAN INJ 4 MG VIAL IVP ONE (15:03)
[2020-12-09] MEDS ORDERED: SOLU-Medrol 40 MG VIAL IVP ONE (15:05)
[2020-12-09] MEDS ORDERED: SOLU-Medrol 40 MG VIAL ONE (15:07)
[2020-12-09] MEDS ORDERED: ZOFRAN INJ 4 MG VIAL ONE (15:07)
--- NOTE | 2020-12-09 17:37 | CT ---
HISTORYABD PAINSTUDYCT ABDOMEN/PELVIS WITH CONCOMPARISONNoneTECHNIQUECT images of the abdomen and pelvis were obtained with IV contrast. Dose reduction techniques including Automated Exposure Control (AEC) and adjustment of mA and kV were utilized.FINDINGSThere is generalized osteopenia. There is advanced L5-S1 spondylosis. No acute osseous abnormality. The lung bases are clear.There is small hiatal hernia of the stomach, which is otherwise unremarkable. The liver is diffusely hypoattenuating, but normal in size and configuration, without focal lesion. The gallbladder, spleen, pancreas, adrenals, and kidneys are unremarkable aside from simple appearing left renal cyst. No radiopaque ureteral stone or hydroureter identified. Colonic diverticulosis. There is thickening with adjacent fat stranding involving a short segment of the sigmoid. No gross free air or organizing collection. Otherwise, no significant thickening or dilatation of the remaining lower GI tract. Normal appendix. The uterus is absent. The bladder and rectum are unremarkable. No free fluid or adenopathy. An intermuscular lipoma interposed between the left gluteus minimus and medius muscles is incidentally noted.IMPRESSIONUncomplicated acute sigmoid diverticulitis.Hepatic steatosis, small hiatal hernia, and other chronic findings as above.Electronically signed by: VANESA CISNEROS (Dec 09, 2020 17:35:39)
[2020-12-09] MEDS ORDERED: FLAGYL IV PREMIX 500 MG BAG 500 MG/100 ML BAG IV ONE (17:59)
[2020-12-09] MEDS ORDERED: CIPRO IV 400 MG PREMIX* 400 MG/200 ML IV.SOLN. IV ONE ×2 (17:59→18:14)
[2020-12-09] MEDS ORDERED: HumuLIN R SUBCUT PRN (18:09)
[2020-12-09] MEDS ORDERED: NS 1000 ML 1,000 ML ONE (18:14)
[2020-12-09] MEDS: NS 1000 ML 1,000 ML IV SCH (18:30)
[2020-12-09] MEDS ORDERED: DEMEROL INJ IVP PRN (18:32)
[2020-12-09] MEDS ORDERED: SNACK - Diabetic Appropriate PO SCH (20:00)
[2020-12-09] MEDS: SNACK - Diabetic Appropriate PO SCH (21:52)
[2020-12-09] MEDS: FLAGYL IV PREMIX 500 MG BAG 500 MG/100 ML BAG IV SCH (21:52)
[2020-12-09] MEDS ORDERED: FLAGYL IV PREMIX 500 MG BAG 500 MG/100 ML BAG IV SCH (22:00)
[2020-12-09 22:11] VITALS: BMI 30.1
[2020-12-09] MEDS ORDERED: HumuLIN 70/30 (NovoLIN 70/30) SC SCH (23:58)
[2020-12-10] MEDS: NEURONTIN TAB 600 MG PO SCH ×2 (01:50→20:12)
[2020-12-10] MEDS: NS 1000 ML 1,000 ML IV SCH ×4 (03:24→19:47)
[2020-12-10] MEDS: FLAGYL IV PREMIX 500 MG BAG 500 MG/100 ML BAG IV SCH ×3 (05:17→21:06)
[2020-12-10] MEDS ORDERED: NORVASC TAB 5 MG PO SCH (09:00)
[2020-12-10] MEDS ORDERED: HYZAAR 50/12.5 MG PO SCH (09:00)
[2020-12-10] MEDS ORDERED: HumuLIN 70/30 (NovoLIN 70/30) SC SCH (09:00)
--- NOTE | 2020-12-10 10:59 | DR.H&P ---
H&P History & Physical for Day of: H&P Date: 12/10/20 Chief Complaint Chief Complaint: Abdominal pain Left wrist pain Allergies Allergies Allergy/AdvReac Type Severity Reaction Status Date / Time alcohol Allergy Verified 05/05/20 08:52 History of Present Illness History of Present Illness: Pt is a 65 year old female past medical history of Hypertension, DMT2, HLD, presenting after having abdominal pain with nausea for the past 2-3 days. Pt reports that symptoms were getting worse so she went to ED. Denies fevers, chills, vomiting, diarrhea, constipation. Pt was also complaining of left wrist pain. Labs/imaging: Wbc 8, Hgb 13.2, Plt 159, Na 140, K 3.5, Creatinine 0.88, Glucose 128, AST 9, ALT 24, ALKP 72, COVID-19 negative, UA negative, CTAP: Uncomplicated acute sigmoid diverticulitis. Hepatic steatosis, small hiatal hernia, and other chronic findings as above. XR left wrist: No acute fractures. Focal lucent mass lateral to the distal ulna. Nonspecific follow with ultrasound can be performed, it could represent hematoma or a lipoma. However is nonspecific. CT revealing diverticulitis, will start on IVF NS@100ml/h, IV antibiotics: Ciprofloxacin and Flagyl, can start on Full liquid diet. Restart home medications. Left wrist possible lipoma, will get ultrasound to evaluate. Restart home medications. Will continue to monitor and follow up labs/imaging in the morning. Past Medical History Past Medical History: Diabetes, Dyslipidemia and Hypertension Additional Medical History: Cataracts, Tinnitus, Ear Infections, Diverticulosis, Constipation Past Surgical History Surgical History: Hysterectomy Additional Surgical History: Carpal Tunnel Right Arm Family History Family Medical History: Cancer, NM and Hypertension Social History Does patient currently use any type of tobacco product: No Have you used tobacco products in the last 12 months: No Type of Tobacco Use: None Does any household member use tobacco: No Alcohol Use: None Drug Use: None Medications Home Medications: alcohol Allergy (Verified 05/05/20 08:52) CONTINUE taking the following medications amlodipine 10 mg PO DAILY 12/10/20 [History] qtjizjthpx-roekidiyozoum-zhlg 1 cap PO TID 12/10/20 [History] famotidine 20 mg PO BID 12/10/20 [History] hydrocodone-acetaminophen 1 tab PO BID PRN 12/10/20 [History] insulin asp prt-insulin aspart 18 unit SUBCUT BID 12/10/20 [History] lisinopril-hydrochlorothiazide 1 tab PO DAILY 12/10/20 [History] meclizine 25 mg PO TID PRN 12/10/20 [History] metformin 500 mg PO BID 12/10/20 [History] ondansetron HCl 4 mg PO Q4H PRN 12/10/20 [History] Labs Result Diagrams: 12/09/20 13:45 12/09/20 13:45 Labs: Laboratory WBC 8.0 X10^3/uL (3.6-10.0) 12/09/20 13:45 RBC 4.42 X10^6/uL (3.5-5.4) 12/09/20 13:45 Hgb 13.2 g/dL (12.0-16.0) 12/09/20 13:45 Hct 39.6 % (36.0-47.0) 12/09/20 13:45 MCV 89.6 fL (80.0-100.0) 12/09/20 13:45 MCH 29.9 pg (27.0-34.0) 12/09/20 13:45 MCHC 33.3 g/dL (33.0-35.0) 12/09/20 13:45 RDW 13.1 % (11.6-16.5) 12/09/20 13:45 Plt Count 159 X10^3/uL (150.0-450.0) 12/09/20 13:45 MPV 8.5 fL (7.4-11.0) 12/09/20 13:45 Neut % (Auto) 68.1 % (42.0-75.0) 12/09/20 13:45 Lymph % (Auto) 20.5 % (21.0-51.0) L 12/09/20 13:45 [place] % (Auto) 10.3 % (0.0-13.0) 12/09/20 13:45 Eos % (Auto) 0.8 % (0.9-2.9) L 12/09/20 13:45 Baso % (Auto) 0.3 % (0.2-1.0) 12/09/20 13:45 Neut # (Auto) 5.4 x10^3/uL (2.2-4.8) H 12/09/20 13:45 Lymph # (Auto) 1.6 X10^3/uL (1.3-2.9) 12/09/20 13:45 [place] # (Auto) 0.8 x10^3/uL (0.3-0.8) 12/09/20 13:45 Eos # (Auto) 0.1 x10^3/uL (0.0-0.2) 12/09/20 13:45 Baso # (Auto) 0.0 X10^3/uL (0.0-0.1) 12/09/20 13:45 Absolute Nucleated RBC 0.1 /100WBC 12/09/20 13:45 ESR 72 MM/HOUR (0-20) H 12/09/20 13:45 Sodium 140 mmol/L (136-145) 12/09/20 13:45 Corrected Sodium 141 mmol/L (136-145) 12/09/20 13:45 Potassium 3.5 mmol/L (3.5-5.1) 12/09/20 13:45 Chloride 104 mmol/L (98-107) 12/09/20 13:45 Carbon Dioxide 29.8 mmol/L (21-32) 12/09/20 13:45 BUN 13 mg/dL (7-18) 12/09/20 13:45 Creatinine 0.88 mg/dL (0.55-1.02) 12/09/20 13:45 Est GFR (MDRD) Af Amer > 60 (>60) 12/09/20 13:45 Est GFR (MDRD) Non-Af > 60 (>60) 12/09/20 13:45 Glucose 128 mg/dL (65-99) H 12/09/20 13:45 POC Glucose (mg/dL) 85 mg/dL (65-99) 12/10/20 05:20 Calcium 9.4 mg/dL (8.5-10.1) 12/09/20 13:45 Corrected Calcium TNP 12/09/20 13:45 Total Bilirubin 1.00 mg/dL (0.2-1.0) 12/09/20 13:45 AST 9 Units/L (15-37) L 12/09/20 13:45 ALT 24 Units/L (12-78) 12/09/20 13:45 Alkaline Phosphatase 72 Units/L (46-116) 12/09/20 13:45 Total Protein 7.5 g/dL (6.4-8.2) 12/09/20 13:45 Albumin 3.7 g/dL (3.4-5.0) 12/09/20 13:45 Globulin 3.8 g/dL (2.5-4.5) 12/09/20 13:45 Albumin/Globulin Ratio 1.0 Ratio (1.1-2.1) L 12/09/20 13:45 Specimen Type Clean catch urine 12/09/20 13:24 Urine Color Yellow (YELLOW) 12/09/20 13:24 Urine Appearance Clear (CLEAR) 12/09/20 13:24 Urine pH 6.5 (5.0 - 8.0) 12/09/20 13:24 Ur Specific [place] 1.010 (1.000-1.030) 12/09/20 13:24 Urine Protein Negative (NEGATIVE) 12/09/20 13:24 Urine Glucose (UA) Negative (NEGATIVE) 12/09/20 13:24 Urine Ketones Negative (NEGATIVE) 12/09/20 13:24 Urine Occult Blood Negative (NEGATIVE) 12/09/20 13:24 Urine Nitrite Negative (NEGATIVE) 12/09/20 13:24 Urine Bilirubin Negative (NEGATIVE) 12/09/20 13:24 Urine Urobilinogen Normal (NORMAL) 12/09/20 13:24 Ur Leukocyte Esterase Negative (NEGATIVE) 12/09/20 13:24 Review of Systems Constitutional: No Symptoms Reported Eyes: No Symptoms Reported ENT: No Symptoms Reported Respiratory: No Symptoms Reported Cardiovascular: No Symptoms Reported Gastrointestinal: Nausea and Abdominal Pain; denies Vomiting, Diarrhea and Constipation Genitourinary: No Symptoms Reported Musculoskeletal: Hand Pain (left wrist ) Skin: No Symptoms Reported Neurological: No Symptoms Reported Physical Exam Vital Signs: Temperature 98.0 F Pulse Rate [Left] 68 Pulse Rate 106 Respiratory Rate 18 Blood Pressure [Left Arm] 119/58 Blood Pressure [Right Arm] 147/75 Blood Pressure 142/80 O2 Sat by Pulse Oximetry 99 Oriented: Normal Eyes: Normal Ear: Normal Nose: Normal Throat: Normal Respiratory: Clear Throughout Cardiovascular: Normal : Normal Auscultation: Bowel Sounds: Normal Palpation: Normal Tenderness: Diffuse and Mild Skin: Normal Musculoskeletal: Normal Psychiatric: Normal Mood Description: Calm and Appropriate Affect: Normal Speech Pattern: Clear and Appropriate Assessment/Plan (1) Sigmoid diverticulitis: Status: Acute Plan: IVF, IV Cipro and Flagyl (2) Left wrist pain: Status: Acute Plan: get ultrasound to evaluate Review H&P Reviewed: Yes Patient was examined?: Yes
[2020-12-10] MEDS ORDERED: PATIENT'S HOME MEDICATION (Lisinopril-Hydrochlorothiazide 20-12.5 mg tablet) PO SCH (11:00)
[2020-12-10] MEDS: CIPRO IV 400 MG PREMIX* 400 MG/200 ML IV.SOLN. IV SCH ×2 (12:37→20:12)
[2020-12-10] MEDS: NORVASC TAB 10 MG PO SCH (12:38)
[2020-12-10] MEDS ORDERED: ZOFRAN INJ 4 MG VIAL IVP PRN (14:48)
[2020-12-10] MEDS: SNACK - Diabetic Appropriate PO SCH (19:47)
[2020-12-10] MEDS ORDERED: COLACE CAP 100 MG PO SCH (21:00)
[2020-12-11] MEDS: NORCO 5/325 MG TAB PO PRN ×2 (00:05→16:41)
[2020-12-11 04:47] LABS: BASOPHILS % (AUTO) 0.7 % (0.2-1.0); EOSINOPHILS # (AUTO) 0.1 x10^3/uL (0.0-0.2); EOSINOPHILS % (AUTO) 2.4 % (0.9-2.9); HEMATOCRIT 37.8 % (36.0-47.0); HEMOGLOBIN 12.2 g/dL (12.0-16.0); LYMPHOCYTES # (AUTO) 2.2 X10^3/uL (1.3-2.9); LYMPHOCYTES % (AUTO) 44.4 % (21.0-51.0); MEAN CORPUSCULAR HEMOGLOBIN 29.2 pg (27.0-34.0); MEAN CORPUSCULAR HGB CONC 32.4 g/dL (33.0-35.0); MEAN CORPUSCULAR VOLUME 90.1 fL (80.0-100.0); MEAN PLATELET VOLUME 8.3 fL (7.4-11.0); MONOCYTES # (AUTO) 0.5 x10^3/uL (0.3-0.8); NEUTROPHILS % (AUTO) 41.5 % (42.0-75.0); PLATELET COUNT 172 X10^3/uL (150.0-450.0); RED BLOOD COUNT 4.19 X10^6/uL (3.5-5.4); RED CELL DISTRIBUTION WIDTH 13.2 % (11.6-16.5); WHITE BLOOD COUNT 4.9 X10^3/uL (3.6-10.0)
[2020-12-11 04:52] LABS: ALANINE AMINOTRANSFERASE 20 Units/L (12-78); ALBUMIN 3.1 g/dL (3.4-5.0); ALKALINE PHOSPHATASE 60 Units/L (46-116); ASPARTATE AMINO TRANSFERASE 9 Units/L (15-37); BLOOD UREA NITROGEN 10 mg/dL (7-18); CALCIUM 9.1 mg/dL (8.5-10.1); CARBON DIOXIDE 27.6 mmol/L (21-32); CHLORIDE 107 mmol/L (98-107); COR CA(FOR HYPOALB) 9.8 mg/dL (8.5-10.1); COR NA(FOR HYPERGLY) 143 mmol/L (136-145); CREATININE 0.86 mg/dL (0.55-1.02); SODIUM 142 mmol/L (136-145); TOTAL PROTEIN 6.7 g/dL (6.4-8.2); eGFR NON BLACK RACES > 60 (>60)
[2020-12-11] MEDS: NS 1000 ML 1,000 ML IV SCH ×4 (04:55→20:02)
[2020-12-11] MEDS: FLAGYL IV PREMIX 500 MG BAG 500 MG/100 ML BAG IV SCH ×3 (05:02→21:03)
--- NOTE | 2020-12-11 05:16 | RAD ---
PROCEDURE: Abdomen X-ray 1 View .HISTORY: ABDOMINAL PAIN .TECHNIQUE: AP supine abdomen view .COMPARISON: None .TECHNICAL QUALITY: Satisfactory .FINDINGS:Some scattered gas and feces in the colon without distention. Some retained contrast right colon from previous contrast administration. No obstruction or ileus.No organomegaly.No abnormal calcifications.No acute bony abnormality.IMPRESSION:1. Nonspecific bowel gas pattern.2. Retained contrast in the colon.Electronically signed by: Juan David Suárez (Dec 11, 2020 05:14:19)
--- NOTE | 2020-12-11 08:10 | PCM.PROG ---
Progress Note Progress Note for Day of Date of Exam: 12/11/20 Subjective Subjective: Pt is a 65 year old female past medical history of Hypertension, DMT2, HLD, admitted for sigmoid diverticulitis and left wrist pain. This morning she is feeling some improvement, able to tolerate full liquid diet. Will advance as tolerated. Labs/imaging: Wbc 4.9, Hgb 12.2, Plt 172, Na 142, K 3.8, Creatinine 0.86, Glucose 154, KUB this mornin.Nonspecific bowel gas pattern. 2.Retained contrast in the colon. U/S left extremity revealed:Nonspecific well- marginated homogeneous non cystic 3.1 x 1.8 x 2.7 cm mass adjacent to the distal ulna. Treatment course includes: IVF NS@100ml/h, IV antibiotics: Ciprofloxacin and Flagyl, Left wrist possible ganglion cyst, can follow up outpatient. Otherwise continue with current treatment plan. Continue to monitor and follow up labs/imaging in the morning. Past Medical Family Social History Past Med/Fam/Surg Hx: No changes since H&P Allergies: Allergies alcohol Allergy (Verified 05/05/20 08:52) Review of Systems ROS: No change since H&P Vital Signs and I&O's Vital Signs: Temperature 98.3 F Pulse Rate [Left] 65 Pulse Rate 106 Respiratory Rate 18 Blood Pressure [Left Arm] 144/72 Blood Pressure [Right Arm] 147/75 Blood Pressure 142/80 O2 Sat by Pulse Oximetry 97 Intake and Output: Intake & Output 12/08/20 12/09/20 12/10/20 12/11/20 23:59 23:59 23:59 23:59 Intake Total 258 / 258 3274 / 3274 785 / 785 Balance 258 / 258 3274 / 3274 785 / 785 Physical Exam Oriented: Normal Eyes: Normal Ear: Normal Nose: Normal Throat: Normal Cardiovascular: Normal : Normal Auscultation: Bowel Sounds: Normal Tenderness: Epigastric and Mild Skin: Normal Musculoskeletal: Normal Psychiatric: Normal Mood Description: Calm and Appropriate Affect: Normal Speech Pattern: Clear and Appropriate Laboratory and Diagnostics Result Diagrams: 12/11/20 04:30 12/11/20 04:30 Labs: Laboratory WBC 4.9 X10^3/uL (3.6-10.0) 12/11/20 04:30 RBC 4.19 X10^6/uL (3.5-5.4) 12/11/20 04:30 Hgb 12.2 g/dL (12.0-16.0) 12/11/20 04:30 Hct 37.8 % (36.0-47.0) 12/11/20 04:30 MCV 90.1 fL (80.0-100.0) 12/11/20 04:30 MCH 29.2 pg (27.0-34.0) 12/11/20 04:30 MCHC 32.4 g/dL (33.0-35.0) L 12/11/20 04:30 RDW 13.2 % (11.6-16.5) 12/11/20 04:30 Plt Count 172 X10^3/uL (150.0-450.0) 12/11/20 04:30 Plt Count Comment Cancelled 12/11/20 04:30 MPV 8.3 fL (7.4-11.0) 12/11/20 04:30 Neut % (Auto) 41.5 % (42.0-75.0) L 12/11/20 04:30 Lymph % (Auto) 44.4 % (21.0-51.0) 12/11/20 04:30 [place] % (Auto) 11.0 % (0.0-13.0) 12/11/20 04:30 Eos % (Auto) 2.4 % (0.9-2.9) 12/11/20 04:30 Baso % (Auto) 0.7 % (0.2-1.0) 12/11/20 04:30 Neut # (Auto) 2.0 x10^3/uL (2.2-4.8) L 12/11/20 04:30 Lymph # (Auto) 2.2 X10^3/uL (1.3-2.9) 12/11/20 04:30 [place] # (Auto) 0.5 x10^3/uL (0.3-0.8) 12/11/20 04:30 Eos # (Auto) 0.1 x10^3/uL (0.0-0.2) 12/11/20 04:30 Baso # (Auto) 0.0 X10^3/uL (0.0-0.1) 12/11/20 04:30 Absolute Nucleated RBC 0.0 /100WBC 12/11/20 04:30 Nucleated RBCs Cancelled 12/11/20 04:30 Atypical Lymphocytes Cancelled 12/11/20 04:30 Blast Cells Cancelled 12/11/20 04:30 Smudge Cells Cancelled 12/11/20 04:30 Toxic Granulation Cancelled 12/11/20 04:30 Dohle Bodies Cancelled 12/11/20 04:30 Arlen Rods Cancelled 12/11/20 04:30 Plt Clumps, EDTA Cancelled 12/11/20 04:30 Giant Platelets Cancelled 12/11/20 04:30 Plt Morphology Comment Cancelled 12/11/20 04:30 RBC Morphology Cancelled 12/11/20 04:30 Dimorphic RBCs Cancelled 12/11/20 04:30 Polychromasia Cancelled 12/11/20 04:30 Hypochromasia Cancelled 12/11/20 04:30 Poikilocytosis Cancelled 12/11/20 04:30 Basophilic Stippling Cancelled 12/11/20 04:30 Anisocytosis Cancelled 12/11/20 04:30 Microcytosis Cancelled 12/11/20 04:30 Macrocytosis Cancelled 12/11/20 04:30 Spherocytes Cancelled 12/11/20 04:30 Pappenheimer Bodies Cancelled 12/11/20 04:30 Sickle Cells Cancelled 12/11/20 04:30 Target Cells Cancelled 12/11/20 04:30 Tear Drop Cells Cancelled 12/11/20 04:30 Ovalocytes Cancelled 12/11/20 04:30 Stomatocytes Cancelled 12/11/20 04:30 Helmet Cells Cancelled 12/11/20 04:30 [place] Bodies Cancelled 12/11/20 04:30 [place] Rings Cancelled 12/11/20 04:30 Mp Cells Cancelled 12/11/20 04:30 Crenated Cell Cancelled 12/11/20 04:30 Acanthocytes (Spur) Cancelled 12/11/20 04:30 Rouleaux Cancelled 12/11/20 04:30 Schistocytes Cancelled 12/11/20 04:30 ESR 72 MM/HOUR (0-20) H 12/09/20 13:45 Sodium 142 mmol/L (136-145) 12/11/20 04:30 Corrected Sodium 143 mmol/L (136-145) 12/11/20 04:30 Potassium 3.8 mmol/L (3.5-5.1) 12/11/20 04:30 Chloride 107 mmol/L (98-107) 12/11/20 04:30 Carbon Dioxide 27.6 mmol/L (21-32) 12/11/20 04:30 BUN 10 mg/dL (7-18) 12/11/20 04:30 Creatinine 0.86 mg/dL (0.55-1.02) 12/11/20 04:30 Est GFR (MDRD) Af Amer > 60 (>60) 12/11/20 04:30 Est GFR (MDRD) Non-Af > 60 (>60) 12/11/20 04:30 Glucose 154 mg/dL (65-99) H 12/11/20 04:30 POC Glucose (mg/dL) 153 mg/dL (65-99) H 12/11/20 05:27 Calcium 9.1 mg/dL (8.5-10.1) 12/11/20 04:30 Corrected Calcium 9.8 mg/dL (8.5-10.1) 12/11/20 04:30 Total Bilirubin 0.60 mg/dL (0.2-1.0) 12/11/20 04:30 AST 9 Units/L (15-37) L 12/11/20 04:30 ALT 20 Units/L (12-78) 12/11/20 04:30 Alkaline Phosphatase 60 Units/L (46-116) 12/11/20 04:30 Total Protein 6.7 g/dL (6.4-8.2) 12/11/20 04:30 Albumin 3.1 g/dL (3.4-5.0) L 12/11/20 04:30 Globulin 3.6 g/dL (2.5-4.5) 12/11/20 04:30 Albumin/Globulin Ratio 0.9 Ratio (1.1-2.1) L 12/11/20 04:30 Specimen Type Clean catch urine 12/09/20 13:24 Urine Color Yellow (YELLOW) 12/09/20 13:24 Urine Appearance Clear (CLEAR) 12/09/20 13:24 Urine pH 6.5 (5.0 - 8.0) 12/09/20 13:24 Ur Specific [place] 1.010 (1.000-1.030) 12/09/20 13:24 Urine Protein Negative (NEGATIVE) 12/09/20 13:24 Urine Glucose (UA) Negative (NEGATIVE) 12/09/20 13:24 Urine Ketones Negative (NEGATIVE) 12/09/20 13:24 Urine Occult Blood Negative (NEGATIVE) 12/09/20 13:24 Urine Nitrite Negative (NEGATIVE) 12/09/20 13:24 Urine Bilirubin Negative (NEGATIVE) 12/09/20 13:24 Urine Urobilinogen Normal (NORMAL) 12/09/20 13:24 Ur Leukocyte Esterase Negative (NEGATIVE) 12/09/20 13:24 Plan (1) Sigmoid diverticulitis: Status: Acute Plan: IVF, IV Cipro and Flagyl (2) Left wrist pain: Status: Acute Plan: get ultrasound to evaluate
[2020-12-11] MEDS ORDERED: SENOKOT PO ONE (08:14)
[2020-12-11] MEDS ORDERED: ZESTRIL TAB 20 MG ONE (08:33)
--- NOTE | 2020-12-11 08:41 | US ---
HISTORYLeft wrist massSTUDYUltrasound left wrist massCOMPARISONNoneFINDINGSSonographic evaluation was focus to a palpable abnormality in the area of the distal ulna. Resulting images demonstrated a non cystic 3.1 x 1.8 by 2.7 cm mass adjacent to the distal ulna. This appears non cystic and avascular. The etiology of this mass is unclear as this is a nonspecific finding. A ganglion is possible. Other diagnoses are possible.IMPRESSIONNonspecific well-marginated homogeneous non cystic 3.1 x 1.8 x 2.7 cm mass adjacent to the distal ulna as described aboveElectronically signed by: BRENDA VASQUEZ (Dec 11, 2020 08:38:53)
[2020-12-11] MEDS: COLACE CAP 100 MG PO SCH ×2 (09:19→20:01)
[2020-12-11] MEDS: CIPRO IV 400 MG PREMIX* 400 MG/200 ML IV.SOLN. IV SCH ×2 (09:19→20:01)
[2020-12-11] MEDS: NORVASC TAB 10 MG PO SCH (09:19)
[2020-12-11] MEDS: HYDROCHLOROTHIAZIDE 12.5 MG CAP PO SCH (09:20)
[2020-12-11] MEDS: ZESTRIL TAB 20 MG PO SCH (09:20)
[2020-12-11] MEDS: HumuLIN R SUBCUT PRN ×2 (12:07→20:03)
[2020-12-11] MEDS ORDERED: XANAX ONE (15:55)
[2020-12-11] MEDS: XANAX PO PRN ×2 (16:00→20:02)
[2020-12-11] MEDS: SNACK - Diabetic Appropriate PO SCH (20:01)
[2020-12-11] MEDS: NEURONTIN TAB 600 MG PO SCH (20:02)
[2020-12-12] MEDS: NS 1000 ML 1,000 ML IV SCH (02:51)
[2020-12-12] MEDS: XANAX PO PRN (04:45)
[2020-12-12] MEDS: NORCO 5/325 MG TAB PO PRN (04:45)
[2020-12-12] MEDS ORDERED: ZESTRIL TAB 20 MG ONE (04:53)
[2020-12-12] MEDS: ZESTRIL TAB 20 MG PO SCH ×2 (04:54→08:34)
[2020-12-12] MEDS: FLAGYL IV PREMIX 500 MG BAG 500 MG/100 ML BAG IV SCH (05:01)
[2020-12-12 06:33] LABS: BASOPHILS % (AUTO) 0.6 % (0.2-1.0); EOSINOPHILS # (AUTO) 0.1 x10^3/uL (0.0-0.2); EOSINOPHILS % (AUTO) 3.4 % (0.9-2.9); HEMATOCRIT 36.9 % (36.0-47.0); HEMOGLOBIN 12.3 g/dL (12.0-16.0); LYMPHOCYTES # (AUTO) 1.6 X10^3/uL (1.3-2.9); LYMPHOCYTES % (AUTO) 42.5 % (21.0-51.0); MEAN CORPUSCULAR HEMOGLOBIN 30.1 pg (27.0-34.0); MEAN CORPUSCULAR HGB CONC 33.3 g/dL (33.0-35.0); MEAN CORPUSCULAR VOLUME 90.3 fL (80.0-100.0); MEAN PLATELET VOLUME 8.4 fL (7.4-11.0); MONOCYTES # (AUTO) 0.5 x10^3/uL (0.3-0.8); MONOCYTES % (AUTO) 11.9 % (0.0-13.0); NEUTROPHILS # (AUTO) 1.6 x10^3/uL (2.2-4.8); NEUTROPHILS % (AUTO) 41.6 % (42.0-75.0); PLATELET COUNT 159 X10^3/uL (150.0-450.0); RED BLOOD COUNT 4.09 X10^6/uL (3.5-5.4); RED CELL DISTRIBUTION WIDTH 13.5 % (11.6-16.5); WHITE BLOOD COUNT 3.9 X10^3/uL (3.6-10.0)
[2020-12-12 06:51] LABS: ALANINE AMINOTRANSFERASE 20 Units/L (12-78); ALKALINE PHOSPHATASE 59 Units/L (46-116); ASPARTATE AMINO TRANSFERASE 12 Units/L (15-37); BLOOD UREA NITROGEN 11 mg/dL (7-18); CARBON DIOXIDE 25.5 mmol/L (21-32); CHLORIDE 108 mmol/L (98-107); COR CA(FOR HYPOALB) 9.8 mg/dL (8.5-10.1); COR NA(FOR HYPERGLY) 146 mmol/L (136-145); CREATININE 0.96 mg/dL (0.55-1.02); SODIUM 143 mmol/L (136-145); TOTAL PROTEIN 6.6 g/dL (6.4-8.2); eGFR NON BLACK RACES > 60 (>60)
[2020-12-12] MEDS: CIPRO IV 400 MG PREMIX* 400 MG/200 ML IV.SOLN. IV SCH (08:33)
[2020-12-12] MEDS: COLACE CAP 100 MG PO SCH (08:33)
[2020-12-12] MEDS: NORVASC TAB 10 MG PO SCH (08:34)
[2020-12-12] MEDS: HYDROCHLOROTHIAZIDE 12.5 MG CAP PO SCH (08:34)
[2020-12-12 09:00] VITALS: BP 130/70
--- NOTE | 2020-12-12 10:14 | W.DIS.FURT ---
Summary of Discharge Discharge Summary of Date Date of Exam: 12/12/20 Admission Date Date of Admission: 12/09/20 Admission Diagnosis Patient Problems (Updated 12/10/20 @ 11:05 by Nahtanael Aldrich) Diabetes mellitus (Chronic) E11.9 Hyperlipidemia (Chronic) E78.5 Osteoarthritis (Acute) M19.90 GERD (gastroesophageal reflux disease) (Acute) K21.9 Hypertension (Acute) I10 Sigmoid diverticulitis (Acute) K57.32 Hospital Course: Pt is a 65 year old female past medical history of Hypertension, DMT2, HLD, admitted for sigmoid diverticulitis seen on CTAP and left wrist pain. Hospital/treatment course included IVF NS@100ml/h, IV antibiotics: Ciprofloxacin and Flagyl. Pt diet was gradually advanced as tolerated and pt was able to tolerate po intake on discharge. Labs/imaging: Wbc 3.9, Hgb 12.3, Plt 159, Na 143, K 3.9, Creatinine 0.96, Glucose 221. Pt did have u/s left extremity revealed:Nonspecific well-marginated homogeneous non cystic 3.1 x 1.8 x 2.7 cm mass adjacent to the distal ulna. Left wrist possible ganglion cyst, can follow up outpatient. Pt was discharged in stable condition, rx cipro and flagyl x 5 more days. Instructed to follow up with pcp in 3-5 days. Vital Signs: Vital Signs (72 hours) 12/09/20 12:10 12/09/20 19:25 12/09/20 19:55 Temperature 98.8 F 98.4 F Pulse Rate 106 H Pulse Rate [Left] 97 H Respiratory Rate 20 18 18 Blood Pressure 142/80 Blood Pressure [Left Arm] 171/107 Blood Pressure [Right Arm] O2 Sat by Pulse Oximetry 97 99 12/09/20 20:25 12/10/20 00:00 12/10/20 04:00 Temperature 98.6 F 98.3 F Pulse Rate Pulse Rate [Left] 83 68 Respiratory Rate 18 18 18 Blood Pressure Blood Pressure [Left Arm] 124/64 119/58 Blood Pressure [Right Arm] O2 Sat by Pulse Oximetry 96 98 12/10/20 07:44 12/10/20 12:00 12/10/20 16:00 Temperature 98.0 F 97.6 F 98.1 F Pulse Rate Pulse Rate [Left] 68 65 71 Respiratory Rate 18 20 20 Blood Pressure Blood Pressure [Left Arm] 132/74 140/81 Blood Pressure [Right Arm] 147/75 O2 Sat by Pulse Oximetry 99 97 97 12/10/20 20:00 12/10/20 23:44 12/11/20 00:05 Temperature 98.2 F 98.6 F Pulse Rate Pulse Rate [Left] 72 71 Respiratory Rate 20 18 20 Blood Pressure Blood Pressure [Left Arm] 129/82 135/64 Blood Pressure [Right Arm] O2 Sat by Pulse Oximetry 99 96 12/11/20 01:05 12/11/20 03:56 12/11/20 08:00 Temperature 98.3 F 98.5 F Pulse Rate Pulse Rate [Left] 65 71 Respiratory Rate 20 18 18 Blood Pressure Blood Pressure [Left Arm] 144/72 160/75 Blood Pressure [Right Arm] O2 Sat by Pulse Oximetry 97 98 12/11/20 12:00 12/11/20 16:00 12/11/20 16:41 Temperature 98.6 F 98.2 F Pulse Rate Pulse Rate [Left] 70 73 Respiratory Rate 18 18 20 Blood Pressure Blood Pressure [Left Arm] 171/86 123/66 Blood Pressure [Right Arm] O2 Sat by Pulse Oximetry 98 96 12/11/20 17:41 12/11/20 19:38 12/11/20 23:47 Temperature 98.6 F 98.6 F Pulse Rate Pulse Rate [Left] 89 72 Respiratory Rate 20 18 18 Blood Pressure Blood Pressure [Left Arm] 165/74 122/60 Blood Pressure [Right Arm] O2 Sat by Pulse Oximetry 97 98 12/12/20 04:00 12/12/20 04:45 12/12/20 05:45 Temperature 98.5 F Pulse Rate Pulse Rate [Left] 87 Respiratory Rate 18 20 20 Blood Pressure Blood Pressure [Left Arm] 180/86 Blood Pressure [Right Arm] O2 Sat by Pulse Oximetry 99 12/12/20 08:00 Temperature 97.9 F Pulse Rate Pulse Rate [Left] 68 Respiratory Rate 18 Blood Pressure Blood Pressure [Left Arm] 130/70 Blood Pressure [Right Arm] O2 Sat by Pulse Oximetry 99 Labs: Laboratory Last Values WBC 3.9 X10^3/uL (3.6-10.0) 12/12/20 06:08 RBC 4.09 X10^6/uL (3.5-5.4) 12/12/20 06:08 Hgb 12.3 g/dL (12.0-16.0) 12/12/20 06:08 Hct 36.9 % (36.0-47.0) 12/12/20 06:08 MCV 90.3 fL (80.0-100.0) 12/12/20 06:08 MCH 30.1 pg (27.0-34.0) 12/12/20 06:08 MCHC 33.3 g/dL (33.0-35.0) 12/12/20 06:08 RDW 13.5 % (11.6-16.5) 12/12/20 06:08 Plt Count 159 X10^3/uL (150.0-450.0) 12/12/20 06:08 Plt Count Comment Cancelled 12/11/20 04:30 MPV 8.4 fL (7.4-11.0) 12/12/20 06:08 Neut % (Auto) 41.6 % (42.0-75.0) L 12/12/20 06:08 Lymph % (Auto) 42.5 % (21.0-51.0) 12/12/20 06:08 [place] % (Auto) 11.9 % (0.0-13.0) 12/12/20 06:08 Eos % (Auto) 3.4 % (0.9-2.9) H 12/12/20 06:08 Baso % (Auto) 0.6 % (0.2-1.0) 12/12/20 06:08 Neut # (Auto) 1.6 x10^3/uL (2.2-4.8) L 12/12/20 06:08 Lymph # (Auto) 1.6 X10^3/uL (1.3-2.9) 12/12/20 06:08 [place] # (Auto) 0.5 x10^3/uL (0.3-0.8) 12/12/20 06:08 Eos # (Auto) 0.1 x10^3/uL (0.0-0.2) 12/12/20 06:08 Baso # (Auto) 0.0 X10^3/uL (0.0-0.1) 12/12/20 06:08 Absolute Nucleated RBC 0.3 /100WBC 12/12/20 06:08 Nucleated RBCs Cancelled 12/11/20 04:30 Atypical Lymphocytes Cancelled 12/11/20 04:30 Blast Cells Cancelled 12/11/20 04:30 Smudge Cells Cancelled 12/11/20 04:30 Toxic Granulation Cancelled 12/11/20 04:30 Dohle Bodies Cancelled 12/11/20 04:30 Arlen Rods Cancelled 12/11/20 04:30 Plt Clumps, EDTA Cancelled 12/11/20 04:30 Giant Platelets Cancelled 12/11/20 04:30 Plt Morphology Comment Cancelled 12/11/20 04:30 RBC Morphology Cancelled 12/11/20 04:30 Dimorphic RBCs Cancelled 12/11/20 04:30 Polychromasia Cancelled 12/11/20 04:30 Hypochromasia Cancelled 12/11/20 04:30 Poikilocytosis Cancelled 12/11/20 04:30 Basophilic Stippling Cancelled 12/11/20 04:30 Anisocytosis Cancelled 12/11/20 04:30 Microcytosis Cancelled 12/11/20 04:30 Macrocytosis Cancelled 12/11/20 04:30 Spherocytes Cancelled 12/11/20 04:30 Pappenheimer Bodies Cancelled 12/11/20 04:30 Sickle Cells Cancelled 12/11/20 04:30 Target Cells Cancelled 12/11/20 04:30 Tear Drop Cells Cancelled 12/11/20 04:30 Ovalocytes Cancelled 12/11/20 04:30 Stomatocytes Cancelled 12/11/20 04:30 Helmet Cells Cancelled 12/11/20 04:30 Costello-Donna Bodies Cancelled 12/11/20 04:30 [place] Rings Cancelled 12/11/20 04:30 [place] Cells Cancelled 12/11/20 04:30 Crenated Cell Cancelled 12/11/20 04:30 Acanthocytes (Spur) Cancelled 12/11/20 04:30 Rouleaux Cancelled 12/11/20 04:30 Schistocytes Cancelled 12/11/20 04:30 ESR 72 MM/HOUR (0-20) H 12/09/20 13:45 Sodium 143 mmol/L (136-145) 12/12/20 06:08 Corrected Sodium 146 mmol/L (136-145) H 12/12/20 06:08 Potassium 3.9 mmol/L (3.5-5.1) 12/12/20 06:08 Chloride 108 mmol/L (98-107) H 12/12/20 06:08 Carbon Dioxide 25.5 mmol/L (21-32) 12/12/20 06:08 BUN 11 mg/dL (7-18) 12/12/20 06:08 Creatinine 0.96 mg/dL (0.55-1.02) 12/12/20 06:08 Est GFR (MDRD) Af Amer > 60 (>60) 12/12/20 06:08 Est GFR (MDRD) Non-Af > 60 (>60) 12/12/20 06:08 Glucose 221 mg/dL (65-99) H 12/12/20 06:08 POC Glucose (mg/dL) 178 mg/dL (65-99) H 12/12/20 05:43 Calcium 9.0 mg/dL (8.5-10.1) 12/12/20 06:08 Corrected Calcium 9.8 mg/dL (8.5-10.1) 12/12/20 06:08 Total Bilirubin 0.40 mg/dL (0.2-1.0) 12/12/20 06:08 AST 12 Units/L (15-37) L 12/12/20 06:08 ALT 20 Units/L (12-78) 12/12/20 06:08 Alkaline Phosphatase 59 Units/L (46-116) 12/12/20 06:08 Total Protein 6.6 g/dL (6.4-8.2) 12/12/20 06:08 Albumin 3.0 g/dL (3.4-5.0) L 12/12/20 06:08 Globulin 3.6 g/dL (2.5-4.5) 12/12/20 06:08 Albumin/Globulin Ratio 0.8 Ratio (1.1-2.1) L 12/12/20 06:08 Specimen Type Clean catch urine 12/09/20 13:24 Urine Color Yellow (YELLOW) 12/09/20 13:24 Urine Appearance Clear (CLEAR) 12/09/20 13:24 Urine pH 6.5 (5.0 - 8.0) 12/09/20 13:24 Ur Specific [place] 1.010 (1.000-1.030) 12/09/20 13:24 Urine Protein Negative (NEGATIVE) 12/09/20 13:24 Urine Glucose (UA) Negative (NEGATIVE) 12/09/20 13:24 Urine Ketones Negative (NEGATIVE) 12/09/20 13:24 Urine Occult Blood Negative (NEGATIVE) 12/09/20 13:24 Urine Nitrite Negative (NEGATIVE) 12/09/20 13:24 Urine Bilirubin Negative (NEGATIVE) 12/09/20 13:24 Urine Urobilinogen Normal (NORMAL) 12/09/20 13:24 Ur Leukocyte Esterase Negative (NEGATIVE) 12/09/20 13:24 Reason For Visit: SIGMOID DIVERTICULITIS,HTN,GERD,DM ,HYPERLIPIDEMIA Discharge Date Discharge Date: 12/12/20 Discharge Diagnosis All Active Problems (Updated 12/10/20 @ 11:05 by Nathanael Aldrich) Left wrist pain (Acute) Right sided weakness (Acute) Chest pain (Acute) Hypertension (Chronic) Diabetes mellitus (Chronic) History of CVA (cerebrovascular accident) (Chronic) Hyperlipidemia (Chronic) History of diverticulosis (Chronic) Arthritis (Chronic) Osteoarthritis (Acute) Left cervical lymphadenopathy (Acute) Acute bronchitis (Acute) Chest pain, rule out acute myocardial infarction (Acute) Syncope (Acute) Shingles (Acute) GERD (gastroesophageal reflux disease) (Acute) Hypertension (Acute) Sensation of heaviness (Acute) Lower extremity pain, left (Acute) Viral syndrome (Acute) COVID-19 (Acute) Hypertensive emergency (Acute) Headache (Acute) Chest pain (Acute) Hypertensive emergency (Acute) Hypertension, uncontrolled (Acute) Acute pain of both ears (Acute) Sigmoid diverticulitis (Acute) Plan of Treatment: Continue with present treatment and follow up plan. Pt is to keep follow up appointment as instructed and take medications as ordered. Discharge Medications Discharge Medications: alcohol Allergy (Verified 05/05/20 08:52) CONTINUE taking the following medications amlodipine 10 mg PO DAILY 12/10/20 [History] ccuepijdgs-dymvfnxvyvjfj-bgov 1 cap PO TID 12/10/20 [History] famotidine 20 mg PO BID 12/10/20 [History] hydrocodone-acetaminophen 1 tab PO BID PRN 12/10/20 [History] insulin asp prt-insulin aspart 18 unit SUBCUT BID 12/10/20 [History] lisinopril-hydrochlorothiazide 1 tab PO DAILY 12/10/20 [History] meclizine 25 mg PO TID PRN 12/10/20 [History] metformin 500 mg PO BID 12/10/20 [History] ondansetron HCl 4 mg PO Q4H PRN 12/10/20 [History] Follow up and Referral Follow Up: 1 Week Discharge Disposition Discharge Disposition: Home Discharge Condition: Stable Discharge Plan Discharge Plan Hospital Course: Pt is a 65 year old female past medical history of Hypertension, DMT2, HLD, admitted for sigmoid diverticulitis seen on CTAP and left wrist pain. Hospital/treatment course included IVF NS@100ml/h, IV antibiotics: Ciprofloxacin and Flagyl. Pt diet was gradually advanced as tolerated and pt was able to tolerate po intake on discharge. Labs/imaging: Wbc 3.9, Hgb 12.3, Plt 159, Na 143, K 3.9, Creatinine 0.96, Glucose 221. Pt did have u/s left extremity revealed:Nonspecific well-marginated homogeneous non cystic 3.1 x 1.8 x 2.7 cm mass adjacent to the distal ulna. Left wrist possible ganglion cyst, can follow up outpatient. Pt was discharged in stable condition, rx cipro and flagyl x 5 more days. Instructed to follow up with pcp in 3-5 days. Patient Disposition: 01 HOME, SELF-CARE Condition: Stable Health Concerns: Post Hospitalization: new medications and changes needed to prevent readmission or further decline. Pt educated and given instructions on all concerns. Plan of Treatment: Continue with present treatment and follow up plan. Pt is to keep follow up appointment as instructed and take medications as ordered. Prescriptions: New ciprofloxacin HCl [Cipro] 250 mg tablet 500 mg PO BID 5 Days Qty: 20 RF: 0 metronidazole [Flagyl] 500 mg tablet 500 mg PO TID 5 Days Qty: 15 RF: 0 sucralfate [Carafate] 1 gram tablet 1 g PO BID 5 Days Qty: 10 RF: 0 Continued famotidine 20 mg tablet 20 mg PO BID RF: 0 amlodipine 10 mg tablet 10 mg PO DAILY RF: 0 irhflvhpxs-zazlaisvhosxm-amhi 50-300-40 mg capsule 1 cap PO TID RF: 0 meclizine 25 mg tablet 25 mg PO TID PRNRF: 0 insulin asp prt-insulin aspart 100 unit/mL (70-30) insulin pen 18 unit SUBCUT BID RF: 0 lisinopril-hydrochlorothiazide 20-12.5 mg tablet 1 tab PO DAILY RF: 0 metformin 500 mg tablet 500 mg PO BID RF: 0 hydrocodone-acetaminophen 5-325 mg Tablet 1 tab PO BID PRN (Reason: Pain) RF: 0 ondansetron HCl 4 mg tablet 4 mg PO Q4H PRN10 Days Qty: 30 RF: 0 Follow ups/Referrals Follow ups/Referrals: Nathanael Aldrich [Primary Care Provider] - 12/22/20 9:00 am CHRISTINA ALFARO [STAFF PHYSICIAN] - 12/22/20 9:00 am Instructions Instructions: Diabetes Mellitus and Sick Day Management, Diverticulitis, Omwc-qs-Hotz, Hypertension, Domd-ok-Dlal Stand Alone Forms: Excuse From Work or School, Precautions for COVID19, Patient Portal, Social Distancing
== END 2020-12-12 12:59 | disposition home or self-care (01) | DRG 392 ==
LOC: ER 12:09 → MED/SURG 18:08 → ER 18:32
PROVIDERS: ADMIT Obstetrics & Gynecology Obstetrics; ATTEND Family Medicine
DX: M67.432 Ganglion, left wrist; M25.432 Effusion, left wrist; I10 Essential (primary) hypertension; K21.9 Gastro-esophageal reflux disease without esophagitis; E11.65 Type 2 diabetes mellitus with hyperglycemia; K57.32 Diverticulitis of large intestine without perforation or abscess without bleeding; M25.532 Pain in left wrist; R10.84 Generalized abdominal pain

== ENCOUNTER 2021-01-21 14:36 | Inpatient (IN) ==
--- NOTE | 2021-01-21 16:37 | CT ---
HISTORYABDOMINAL PAIN, COLITIS, patient states mid abdomen pelvic painSTUDYABDOMEN/PELVIS W/O CONCOMPARISONCT abdomen and pelvis December 09, 2020 a study that was performed with contrast.TECHNIQUEMultiple axial images of the abdomen and pelvis were obtained from the lung bases to the pubic symphysis without the administration of IV contrast. Dose reduction techniques including Automated Exposure Control (AEC) and adjustment of mA and kV were utilized.FINDINGSThe visualized portions of the lung bases are unremarkable other than mild pleural scarring anterior laterally in the right lung base. The liver, spleen, pancreas, kidneys, and adrenal glands are unremarkable in their CT appearance. Again note is made of the large cyst anteriorly in the mid left kidney the gallbladder is unremarkable in its CT appearance . No significant mesenteric lymphadenopathy or stranding can be observed. The abdominal aorta and IVC are normal without aneurysm or retroperitoneal adenopathy. There is a small fat containing umbilical hernia. There is diverticulosis in the sigmoid colon and there is new mild pericolonic stranding which is very mild but is a change from the prior study of December 09, 2020. There is also wall thickening over a long segment. Findings are consistent with mild sigmoid diverticulitis without obstruction or perforation. There is no perforation or abscess. There is no obstruction no free fluid or free air is seen within the abdomen. the colon is otherwise unremarkable. The urinary bladder is grossly unremarkable. The uterus is surgically absent. The bony structures are grossly intact. There is marked degenerative disc disease at L5-S1.IMPRESSIONMild diverticulitis at the junction of the descending to the sigmoid colon. There is also wall thickening but no perforation or abscess or obstruction. The pericolonic inflammatory blurring is a new/increased finding when compared to the CT scan of December 09, 2020.Degenerative disc disease L5-Y7Vmcpen cyst upper pole left kidney.Status post hysterectomyIncidental left gluteal lipomaElectronically signed by: ELLI GUTIERREZ (January 21, 2021 16:35:18)
[2021-01-21] MEDS: MORPHINE SULFATE INJ 2 MG INJ IVP PRN (17:05)
[2021-01-21] MEDS: FLAGYL IV PREMIX 500 MG BAG 500 MG/100 ML BAG IV SCH ×2 (17:20→23:27)
[2021-01-21] MEDS ORDERED: BENADRYL INJ 50 MG VIAL IVP ONE (17:28)
[2021-01-21 17:50] LABS: BASOPHILS % (AUTO) 0.3 % (0.2-1.0); EOSINOPHILS # (AUTO) 0.1 x10^3/uL (0.0-0.2); EOSINOPHILS % (AUTO) 1.2 % (0.9-2.9); HEMATOCRIT 39.9 % (36.0-47.0); HEMOGLOBIN 13.1 g/dL (12.0-16.0); LYMPHOCYTES # (AUTO) 2.1 X10^3/uL (1.3-2.9); LYMPHOCYTES % (AUTO) 23.3 % (21.0-51.0); MEAN CORPUSCULAR HEMOGLOBIN 30.3 pg (27.0-34.0); MEAN CORPUSCULAR HGB CONC 32.9 g/dL (33.0-35.0); MEAN CORPUSCULAR VOLUME 92.2 fL (80.0-100.0); MEAN PLATELET VOLUME 8.5 fL (7.4-11.0); MONOCYTES # (AUTO) 0.8 x10^3/uL (0.3-0.8); MONOCYTES % (AUTO) 9.1 % (0.0-13.0); NEUTROPHILS # (AUTO) 5.9 x10^3/uL (2.2-4.8); NEUTROPHILS % (AUTO) 66.1 % (42.0-75.0); PLATELET COUNT 167 X10^3/uL (150.0-450.0); RED BLOOD COUNT 4.33 X10^6/uL (3.5-5.4); RED CELL DISTRIBUTION WIDTH 13.4 % (11.6-16.5); WHITE BLOOD COUNT 8.9 X10^3/uL (3.6-10.0)
[2021-01-21 17:56] LABS: ALANINE AMINOTRANSFERASE 24 Units/L (12-78); ALBUMIN 3.4 g/dL (3.4-5.0); ALKALINE PHOSPHATASE 63 Units/L (46-116); AMYLASE 79 Units/L (25-115); ASPARTATE AMINO TRANSFERASE 15 Units/L (15-37); BLOOD UREA NITROGEN 19 mg/dL (7-18); CALCIUM 9.1 mg/dL (8.5-10.1); CARBON DIOXIDE 28.2 mmol/L (21-32); CHLORIDE 105 mmol/L (98-107); COR NA(FOR HYPERGLY) 142 mmol/L (136-145); CREATININE 0.86 mg/dL (0.55-1.02); LIPASE 165 Units/L (73-393); SODIUM 141 mmol/L (136-145); TOTAL PROTEIN 7.4 g/dL (6.4-8.2); eGFR NON BLACK RACES > 60 (>60)
--- NOTE | 2021-01-21 19:25 | DR.PROGNOT ---
Hospital Progress Notes - Progress Note for Day of: Progress Note Date: 01/21/21 - Chief Complaint Chief Complaint: c/o lower abdominal pain and nausea . abdominal CT showed acute sigmoid diverticulitis . recent colonoscopy showed ulcerated lesion in the ascending colon with ischemic changes on pathology , no malignancy . normal CBC and CMP . - Past Medical Family Social History Past Med/Fam/Surg Hx: No changes since H&P Allergies: Allergies No Known Drug Allergies Allergy (Verified 01/21/21 16:10) - Review Of Systems ROS: No change since H&P - Vital Signs Vital Signs: Temperature 98.4 F Pulse Rate [Left Brachial] 88 Respiratory Rate 18 Blood Pressure [Left Arm] 156/73 Blood Pressure [Right Arm] 147/75 Blood Pressure 120/89 O2 Sat by Pulse Oximetry 97 - Physical Exam Oriented: Normal Eyes: Normal Ear: Normal Nose: Normal Throat: Normal Cardiovascular: Normal : Normal GI:Auscultation: Decreased GI: Tenderness: RLQ (full abdomen with moderate to severe suprapubic tenderness with mild rebound . BS hypoactive ), LLQ Speech Pattern: Clear, Appropriate - Laboratory and Diagnostics Result Diagrams: 01/21/21 17:26 01/21/21 17: Labs: Laboratory WBC 8.9 X10^3/uL (3.6-10.0) 01/21/21 17: RBC 4.33 X10^6/uL (3.5-5.4) 01/21/21 17: Hgb 13.1 g/dL (12.0-16.0) 01/21/21 17: Hct 39.9 % (36.0-47.0) 01/21/21 17: MCV 92.2 fL (80.0-100.0) 01/21/21 17: MCH 30.3 pg (27.0-34.0) 01/21/21 17: MCHC 32.9 g/dL (33.0-35.0) L 01/21/21: RDW 13.4 % (11.6-16.5) 01/21/21 17: Plt Count 167 X10^3/uL (150.0-450.0) 01/21/21 17: MPV 8.5 fL (7.4-11.0) 05/20/21 17:26 Neut % (Auto) 66.1 % (42.0-75.0) 01/21/21 17: Lymph % (Auto) 23.3 % (21.0-51.0) 01/21/21 17: [place] % (Auto) 9.1 % (0.0-13.0) 01/21/21 17:26 Eos % (Auto) 1.2 % (0.9-2.9) 01/21/21 17: Baso % (Auto) 0.3 % (0.2-1.0) 01/21/21 17: Neut # (Auto) 5.9 x10^3/uL (2.2-4.8) H 01/21/21 17: Lymph # (Auto) 2.1 X10^3/uL (1.3-2.9) 01/21/21 17: [place] # (Auto) 0.8 x10^3/uL (0.3-0.8) 01/21/21 17: Eos # (Auto) 0.1 x10^3/uL (0.0-0.2) 01/21/21 17: Baso # (Auto) 0.0 X10^3/uL (0.0-0.1) 01/21/21 17: Absolute Nucleated RBC 0.1 /100WBC 01/21/21 17:26 Sodium 141 mmol/L (136-145) 01/21/21 17:26 Corrected Sodium 142 mmol/L (136-145) 01/21/21 17:26 Potassium 3.7 mmol/L (3.5-5.1) 01/21/21 17: Chloride 105 mmol/L (98-107) 01/21/21 17:26 Carbon Dioxide 28.2 mmol/L (21-32) 01/21/21 17:26 BUN 19 mg/dL (7-18) H 01/21/21 17:26 Creatinine 0.86 mg/dL (0.55-1.02) 01/21/21 17:26 Est GFR (MDRD) Af Amer > 60 (>60) 01/21/21 17:26 Est GFR (MDRD) Non-Af > 60 (>60) 01/21/21 17:26 Glucose 136 mg/dL (65-99) H 01/21/21 17:26 Calcium 9.1 mg/dL (8.5-10.1) 01/21/21 17:26 Corrected Calcium TNP 01/21/21 17:26 Total Bilirubin 0.60 mg/dL (0.2-1.0) 01/21/21 17:26 AST 15 Units/L (15-37) 01/21/21 17:26 ALT 24 Units/L (12-78) 01/21/21 17:26 Alkaline Phosphatase 63 Units/L (46-116) 01/21/21 17:26 Total Protein 7.4 g/dL (6.4-8.2) 01/21/21 17:26 Albumin 3.4 g/dL (3.4-5.0) 01/21/21 17:26 Globulin 4.0 g/dL (2.5-4.5) 01/21/21 17:26 Albumin/Globulin Ratio 0.9 Ratio (1.1-2.1) L 01/21/21 17:26 Amylase 79 Units/L (25-115) 01/21/21 17:26 Lipase 165 Units/L (73-393) 01/21/21 17:26 - Assessment and Plan 1: acute sigmoid diverticulitis . dehydration . ischemic ulceration in the ascending colon on recent colonoscopy . on IV ATB , IVFF and Lovenox ..
[2021-01-22] MEDS: MORPHINE SULFATE INJ 2 MG INJ IVP PRN ×2 (01:23→06:13)
[2021-01-22] MEDS: FLAGYL IV PREMIX 500 MG BAG 500 MG/100 ML BAG IV SCH ×3 (05:54→22:00)
--- NOTE | 2021-01-22 08:11 | DR.H&P ---
H&P History & Physical for Day of: H&P Date: 01/21/21 Chief Complaint Chief Complaint: Abdominal pain Nausea Allergies Allergies Allergy/AdvReac Type Severity Reaction Status Date / Time No Known Drug Allergies Allergy Verified 01/21/21 16:10 History of Present Illness History of Present Illness: Pt is a 65 year old female admitted from clinic after having acute abdominal pain and nausea. She was seen by Dr Frazier outpatient for follow up on colonoscopy results that showed ulcerated of ascending colon, when she revealed symptoms that were occurring. Pt reports lower abdominal pain and nausea that was getting worse. Decreased po intake due to pain. Imaging was ordered and CTAP revealed mild diverticulitis of the sigmoid colon. Labs: Wbc 8.9, Hgb 13.1, Plt 167, Na 141, K 3.7, Creatinine 0.86, Glucose 136. Pt was started on IVF NS@125ml/h, Diet NPO, IV antibiotics Flagyl, will add Ciprofloxacin. Continue anti-emetics and pain control. Past Medical History Past Medical History: Diabetes, Dyslipidemia and Hypertension Additional Medical History: Cataracts, Tinnitus, Ear Infections, Diverticulosis, Constipation Past Surgical History Surgical History: Hysterectomy and Other Additional Surgical History: Carpal Tunnel Right Arm Family History Family Medical History: Cancer, NC and Hypertension Social History Does patient currently use any type of tobacco product: No Have you used tobacco products in the last 12 months: No Type of Tobacco Use: None Does any household member use tobacco: No Alcohol Use: None Drug Use: None Medications Home Medications: No Known Drug Allergies Allergy (Verified 01/21/21 16:10) CONTINUE taking the following medications gybxhvlpfe-crngpbpsafgiy-locb 1 cap PO TID PRN 01/21/21 [History] meclizine 25 mg PO TID PRN 01/21/21 [History] naproxen 500 mg PO BID PRN 01/21/21 [History] ondansetron HCl [Zofran] 4 mg PO Q6HR PRN 01/21/21 [History] sucralfate 1 g PO BID 01/21/21 [History] Labs Result Diagrams: 01/21/21 17:26 01/21/21 17:26 Labs: Laboratory WBC 8.9 X10^3/uL (3.6-10.0) 01/21/21 17:26 RBC 4.33 X10^6/uL (3.5-5.4) 01/21/21 17: Hgb 13.1 g/dL (12.0-16.0) 01/21/21 17: Hct 39.9 % (36.0-47.0) 01/21/21 17: MCV 92.2 fL (80.0-100.0) 01/21/21 17: MCH 30.3 pg (27.0-34.0) 01/21/21 17: MCHC 32.9 g/dL (33.0-35.0) L 01/21/21 17: RDW 13.4 % (11.6-16.5) 01/21/21: Plt Count 167 X10^3/uL (150.0-450.0) 01/21/21: MPV 8.5 fL (7.4-11.0) 01/21/21 17: Neut % (Auto) 66.1 % (42.0-75.0) 01/21/21 17: Lymph % (Auto) 23.3 % (21.0-51.0) 01/21/21: [place] % (Auto) 9.1 % (0.0-13.0) 01/21/21 17: Eos % (Auto) 1.2 % (0.9-2.9) 01/21/21 17: Baso % (Auto) 0.3 % (0.2-1.0) 01/21/21 17: Neut # (Auto) 5.9 x10^3/uL (2.2-4.8) H 01/21/21 17: Lymph # (Auto) 2.1 X10^3/uL (1.3-2.9) 01/21/21 17: [place] # (Auto) 0.8 x10^3/uL (0.3-0.8) 01/21/21 17: Eos # (Auto) 0.1 x10^3/uL (0.0-0.2) 01/21/21 17: Baso # (Auto) 0.0 X10^3/uL (0.0-0.1) 01/21/21: Absolute Nucleated RBC 0.1 /100WBC 01/21/21 17:26 Sodium 141 mmol/L (136-145) 01/21/21 17:26 Corrected Sodium 142 mmol/L (136-145) 01/21/21 17:26 Potassium 3.7 mmol/L (3.5-5.1) 01/21/21 17:26 Chloride 105 mmol/L (98-107) 01/21/21 17:26 Carbon Dioxide 28.2 mmol/L (21-32) 01/21/21 17:26 BUN 19 mg/dL (7-18) H 01/21/21 17:26 Creatinine 0.86 mg/dL (0.55-1.02) 01/21/21 17:26 Est GFR (MDRD) Af Amer > 60 (>60) 01/21/21 17:26 Est GFR (MDRD) Non-Af > 60 (>60) 01/21/21 17:26 Glucose 136 mg/dL (65-99) H 01/21/21 17:26 Calcium 9.1 mg/dL (8.5-10.1) 01/21/21 17:26 Corrected Calcium TNP 01/21/21 17:26 Total Bilirubin 0.60 mg/dL (0.2-1.0) 01/21/21 17:26 AST 15 Units/L (15-37) 01/21/21 17:26 ALT 24 Units/L (12-78) 01/21/21 17:26 Alkaline Phosphatase 63 Units/L (46-116) 01/21/21 17:26 Total Protein 7.4 g/dL (6.4-8.2) 01/21/21 17:26 Albumin 3.4 g/dL (3.4-5.0) 01/21/21 17:26 Globulin 4.0 g/dL (2.5-4.5) 01/21/21 17:26 Albumin/Globulin Ratio 0.9 Ratio (1.1-2.1) L 01/21/21 17:26 Amylase 79 Units/L (25-115) 01/21/21 17:26 Lipase 165 Units/L (73-393) 01/21/21 17:26 Review of Systems Constitutional: No Symptoms Reported Eyes: No Symptoms Reported ENT: No Symptoms Reported Respiratory: No Symptoms Reported Cardiovascular: No Symptoms Reported Gastrointestinal: Nausea and Abdominal Pain Musculoskeletal: No Symptoms Reported Skin: No Symptoms Reported Neurological: No Symptoms Reported Physical Exam Vital Signs: Temperature 98.6 F Pulse Rate [Left Brachial] 79 Respiratory Rate 14 Blood Pressure [Left Arm] 180/85 Blood Pressure [Right Arm] 147/75 Blood Pressure 120/89 O2 Sat by Pulse Oximetry 98 Oriented: Normal Eyes: Normal Ear: Normal Nose: Normal Throat: Normal Respiratory: Clear Throughout Cardiovascular: Normal Auscultation: Bowel Sounds: Normal Tenderness: LUQ, LLQ and Moderate Skin: Normal Musculoskeletal: Normal Psychiatric: Normal Mood Description: Calm and Appropriate Affect: Normal Speech Pattern: Clear and Appropriate Assessment/Plan (1) Sigmoid diverticulitis: Status: Acute Review H&P Reviewed: Yes Patient was examined?: Yes
[2021-01-22] MEDS: LOVENOX INJ 40 MG SYR SC SCH (08:35)
[2021-01-22] MEDS: CIPRO IV 400 MG PREMIX* 400 MG/200 ML IV.SOLN. IV SCH ×2 (09:01→20:18)
[2021-01-22] MEDS: NS 1000 ML 1,000 ML IV SCH ×3 (09:01→20:18)
[2021-01-22] MEDS: HYDROCHLOROTHIAZIDE 12.5 MG CAP PO SCH ×2 (09:12→09:56)
[2021-01-22] MEDS: GLUCOPHAGE PO SCH ×3 (09:12→20:17)
[2021-01-22] MEDS: PEPCID TAB 20 MG PO SCH ×3 (09:13→20:18)
[2021-01-22] MEDS: NORVASC TAB 10 MG PO SCH ×2 (09:13→09:56)
[2021-01-22] MEDS: ZESTRIL TAB 20 MG PO SCH ×2 (09:13→09:56)
[2021-01-22 09:18] LABS: BASOPHILS % (AUTO) 0.4 % (0.2-1.0); EOSINOPHILS # (AUTO) 0.1 x10^3/uL (0.0-0.2); EOSINOPHILS % (AUTO) 1.9 % (0.9-2.9); HEMATOCRIT 40.8 % (36.0-47.0); HEMOGLOBIN 13.7 g/dL (12.0-16.0); LYMPHOCYTES # (AUTO) 1.8 X10^3/uL (1.3-2.9); LYMPHOCYTES % (AUTO) 32.7 % (21.0-51.0); MEAN CORPUSCULAR HEMOGLOBIN 30.2 pg (27.0-34.0); MEAN CORPUSCULAR HGB CONC 33.4 g/dL (33.0-35.0); MEAN CORPUSCULAR VOLUME 90.2 fL (80.0-100.0); MEAN PLATELET VOLUME 8.2 fL (7.4-11.0); MONOCYTES # (AUTO) 0.6 x10^3/uL (0.3-0.8); MONOCYTES % (AUTO) 10.2 % (0.0-13.0); NEUTROPHILS # (AUTO) 3.1 x10^3/uL (2.2-4.8); NEUTROPHILS % (AUTO) 54.8 % (42.0-75.0); PLATELET COUNT 179 X10^3/uL (150.0-450.0); RED BLOOD COUNT 4.53 X10^6/uL (3.5-5.4); RED CELL DISTRIBUTION WIDTH 13.3 % (11.6-16.5); WHITE BLOOD COUNT 5.6 X10^3/uL (3.6-10.0)
[2021-01-22 09:28] LABS: ALANINE AMINOTRANSFERASE 25 Units/L (12-78); ALBUMIN 3.4 g/dL (3.4-5.0); ALKALINE PHOSPHATASE 62 Units/L (46-116); ASPARTATE AMINO TRANSFERASE 17 Units/L (15-37); BLOOD UREA NITROGEN 16 mg/dL (7-18); CALCIUM 9.2 mg/dL (8.5-10.1); CARBON DIOXIDE 30.6 mmol/L (21-32); CHLORIDE 105 mmol/L (98-107); COR NA(FOR HYPERGLY) 143 mmol/L (136-145); CREATININE 0.77 mg/dL (0.55-1.02); SODIUM 142 mmol/L (136-145); TOTAL PROTEIN 7.6 g/dL (6.4-8.2); eGFR NON BLACK RACES > 60 (>60)
[2021-01-22] MEDS ORDERED: GLUCOPHAGE ONE ×2 (09:43→19:37)
[2021-01-22] MEDS ORDERED: ZESTRIL TAB 20 MG ONE (09:43)
[2021-01-22] MEDS: ZOFRAN TAB 4 MG PO PRN (09:55)
--- NOTE | 2021-01-22 11:16 | DR.PROGNOT ---
Hospital Progress Notes - Progress Note for Day of: Progress Note Date: 01/22/21 - Chief Complaint Chief Complaint: still having lower and epigastric abdominal pain . no nausea today . CBC and CMP normal . Temp 98.3 - Past Medical Family Social History Past Med/Fam/Surg Hx: No changes since H&P Allergies: Allergies No Known Drug Allergies Allergy (Verified 01/21/21 16:10) - Review Of Systems ROS: No change since H&P - Vital Signs Vital Signs: Temperature 98.3 F Pulse Rate [Left Brachial] 64 Respiratory Rate 18 Blood Pressure [Left Arm] 186/88 Blood Pressure [Right Arm] 147/75 Blood Pressure 120/89 O2 Sat by Pulse Oximetry 96 - Physical Exam Oriented: Normal Eyes: Normal Ear: Normal Nose: Normal Throat: Normal Cardiovascular: Normal : Normal GI:Auscultation: Normal GI:Palpation: Normal GI: Tenderness: LUQ, LLQ, Epigastric (soft , full abdomen with LLQ tenderness with rebound ..BS+), Moderate Skin: Normal Musculoskeletal: Normal Psychiatric: Normal Mood Description: Calm, Appropriate Affect: Normal Speech Pattern: Clear, Appropriate - Laboratory and Diagnostics Result Diagrams: 01/22/21 08:43 01/22/21 08:43 Labs: Laboratory WBC 5.6 X10^3/uL (3.6-10.0) 01/22/21 08:43 RBC 4.53 X10^6/uL (3.5-5.4) 01/22/21 08:43 Hgb 13.7 g/dL (12.0-16.0) 01/22/21 08:43 Hct 40.8 % (36.0-47.0) 01/22/21 08:43 MCV 90.2 fL (80.0-100.0) 01/22/21 08:43 MCH 30.2 pg (27.0-34.0) 01/22/21 08:43 MCHC 33.4 g/dL (33.0-35.0) 01/22/21 08:43 RDW 13.3 % (11.6-16.5) 01/22/21 08:43 Plt Count 179 X10^3/uL (150.0-450.0) 01/22/21 08:43 MPV 8.2 fL (7.4-11.0) 01/22/21 08:43 Neut % (Auto) 54.8 % (42.0-75.0) 01/22/21 08:43 Lymph % (Auto) 32.7 % (21.0-51.0) 01/22/21 08:43 [place] % (Auto) 10.2 % (0.0-13.0) 01/22/21 08:43 Eos % (Auto) 1.9 % (0.9-2.9) 01/22/21 08:43 Baso % (Auto) 0.4 % (0.2-1.0) 01/22/21 08:43 Neut # (Auto) 3.1 x10^3/uL (2.2-4.8) 01/22/21 08:43 Lymph # (Auto) 1.8 X10^3/uL (1.3-2.9) 01/22/21 08:43 [place] # (Auto) 0.6 x10^3/uL (0.3-0.8) 01/22/21 08:43 Eos # (Auto) 0.1 x10^3/uL (0.0-0.2) 01/22/21 08:43 Baso # (Auto) 0.0 X10^3/uL (0.0-0.1) 01/22/21 08:43 Absolute Nucleated RBC 0.1 /100WBC 01/22/21 08:43 Sodium 142 mmol/L (136-145) 01/22/21 08:43 Corrected Sodium 143 mmol/L (136-145) 01/22/21 08:43 Potassium 3.8 mmol/L (3.5-5.1) 01/22/21 08:43 Chloride 105 mmol/L (98-107) 01/22/21 08:43 Carbon Dioxide 30.6 mmol/L (21-32) 01/22/21 08:43 BUN 16 mg/dL (7-18) 01/22/21 08:43 Creatinine 0.77 mg/dL (0.55-1.02) 01/22/21 08:43 Est GFR (MDRD) Af Amer > 60 (>60) 01/22/21 08:43 Est GFR (MDRD) Non-Af > 60 (>60) 01/22/21 08:43 Glucose 141 mg/dL (65-99) H 01/22/21 08:43 Calcium 9.2 mg/dL (8.5-10.1) 01/22/21 08:43 Corrected Calcium TNP 01/22/21 08:43 Total Bilirubin 0.70 mg/dL (0.2-1.0) 01/22/21 08:43 AST 17 Units/L (15-37) 01/22/21 08:43 ALT 25 Units/L (12-78) 01/22/21 08:43 Alkaline Phosphatase 62 Units/L (46-116) 01/22/21 08:43 Total Protein 7.6 g/dL (6.4-8.2) 01/22/21 08:43 Albumin 3.4 g/dL (3.4-5.0) 01/22/21 08:43 Globulin 4.2 g/dL (2.5-4.5) 01/22/21 08:43 Albumin/Globulin Ratio 0.8 Ratio (1.1-2.1) L 01/22/21 08:43 Amylase 79 Units/L (25-115) 01/21/21 17:26 Lipase 165 Units/L (73-393) 01/21/21 17:26 - Assessment and Plan 1: acute sigmoid diverticulitis . dehydration . ischemic ulceration in the ascending colon on recent colonoscopy . on IV ATB , IVFF and Lovenox .. on full liquid diet .
[2021-01-22 13:04] LABS: CRYPTOSPORIDIUM PARVUM ANTIGEN NEGATIVE (NEGATIVE); GIARDIA LAMBLIA ANTIGEN NEGATIVE (NEGATIVE)
[2021-01-22 13:35] VITALS: BMI 28.3
[2021-01-23] MEDS: ZOFRAN TAB 4 MG PO PRN ×2 (03:47→09:15)
[2021-01-23] MEDS: NS 1000 ML 1,000 ML IV SCH ×3 (03:52→22:04)
[2021-01-23] MEDS: FLAGYL IV PREMIX 500 MG BAG 500 MG/100 ML BAG IV SCH ×3 (05:33→22:03)
[2021-01-23 05:49] LABS: BASOPHILS % (AUTO) 0.5 % (0.2-1.0); EOSINOPHILS # (AUTO) 0.2 x10^3/uL (0.0-0.2); EOSINOPHILS % (AUTO) 2.7 % (0.9-2.9); HEMATOCRIT 41.9 % (36.0-47.0); LYMPHOCYTES # (AUTO) 1.9 X10^3/uL (1.3-2.9); LYMPHOCYTES % (AUTO) 29.2 % (21.0-51.0); MEAN CORPUSCULAR HEMOGLOBIN 30.3 pg (27.0-34.0); MEAN CORPUSCULAR HGB CONC 33.3 g/dL (33.0-35.0); MEAN CORPUSCULAR VOLUME 90.9 fL (80.0-100.0); MEAN PLATELET VOLUME 8.6 fL (7.4-11.0); MONOCYTES # (AUTO) 0.8 x10^3/uL (0.3-0.8); MONOCYTES % (AUTO) 11.7 % (0.0-13.0); NEUTROPHILS # (AUTO) 3.7 x10^3/uL (2.2-4.8); NEUTROPHILS % (AUTO) 55.9 % (42.0-75.0); PLATELET COUNT 182 X10^3/uL (150.0-450.0); RED BLOOD COUNT 4.61 X10^6/uL (3.5-5.4); RED CELL DISTRIBUTION WIDTH 13.3 % (11.6-16.5)
[2021-01-23 05:52] LABS: ALANINE AMINOTRANSFERASE 26 Units/L (12-78); ALBUMIN 3.3 g/dL (3.4-5.0); ALKALINE PHOSPHATASE 59 Units/L (46-116); ASPARTATE AMINO TRANSFERASE 18 Units/L (15-37); BLOOD UREA NITROGEN 9 mg/dL (7-18); CHLORIDE 105 mmol/L (98-107); COR CA(FOR HYPOALB) 9.6 mg/dL (8.5-10.1); COR NA(FOR HYPERGLY) 142 mmol/L (136-145); CREATININE 0.78 mg/dL (0.55-1.02); SODIUM 140 mmol/L (136-145); TOTAL PROTEIN 7.3 g/dL (6.4-8.2); eGFR NON BLACK RACES > 60 (>60)
[2021-01-23 06:33] LABS: PLATELET MORPHOLOGY COMMENT NORMAL (NORMAL)
--- NOTE | 2021-01-23 08:54 | PCM.PROG ---
Progress Note Progress Note for Day of Date of Exam: 01/22/21 Subjective Subjective: Pt is a 65 year old female admitted for acute sigmoid diverticulitis that was revealed on CTAP. This morning she reports slight improvement of abdominal pain and nausea. She remains NPO. Labs/imaging: Wbc 5.6, Hgb 13.7, Plt 179, Na 142, K 3.8, Creatinine 0.77, Glucose 141. Stool studies pending. Hospital/treatment course includes: IVF NS@125ml/h, Diet NPO, IV antibiotics Flagyl and Ciprofloxacin. Continue anti-emetics and pain control. Surgery consulted-Dr Frazier, recommends continue current treatment plan. Will continue to monitor and follow up labs in the morning. Past Medical Family Social History Past Med/Fam/Surg Hx: No changes since H&P Allergies: Allergies No Known Drug Allergies Allergy (Verified 01/21/21 16:10) Review of Systems ROS: No change since H&P Vital Signs and I&O's Vital Signs: Temperature 98.5 F Pulse Rate [Left Brachial] 86 Respiratory Rate 20 Blood Pressure [Left Arm] 195/93 Blood Pressure [Right Arm] 147/75 Blood Pressure 120/89 O2 Sat by Pulse Oximetry 98 Intake and Output: Intake & Output 01/20/21 01/21/21 01/22/21 01/23/21 23:59 23:59 23:59 23:59 Intake Total 100 / 100 2270 / 2270 1984 Balance 100 / 100 2270 / 2270 1984 Physical Exam Oriented: Normal Eyes: Normal Ear: Normal Nose: Normal Throat: Normal Respiratory: Normal Cardiovascular: Normal : Normal Auscultation: Bowel Sounds: Normal Tenderness: LUQ, LLQ, Epigastric (soft , full abdomen with LLQ tenderness with rebound ..BS+) and Moderate Skin: Normal Musculoskeletal: Normal Psychiatric: Normal Mood Description: Calm and Appropriate Affect: Normal Speech Pattern: Clear and Appropriate Laboratory and Diagnostics Result Diagrams: 01/23/21 05:02 01/23/21 05:02 Labs: 01/22/21 11:36 Stool - Final Laboratory WBC 8.0 X10^3/uL (3.6-10.0) 01/23/21 05:02 RBC 4.61 X10^6/uL (3.5-5.4) 01/23/21 05:02 Hgb 14.0 g/dL (12.0-16.0) 01/23/21 05:02 Hct 41.9 % (36.0-47.0) 01/23/21 05:02 MCV 90.9 fL (80.0-100.0) 01/23/21 05:02 MCH 30.3 pg (27.0-34.0) 01/23/21 05:02 MCHC 33.3 g/dL (33.0-35.0) 01/23/21 05:02 RDW 13.3 % (11.6-16.5) 01/23/21 05:02 Plt Count 182 X10^3/uL (150.0-450.0) 01/23/21 05:02 Plt Count Comment Adequate (ADEQUATE) 01/23/21 05:02 MPV 8.6 fL (7.4-11.0) 01/23/21 05:02 Neut % (Auto) 55.9 % (42.0-75.0) 01/23/21 05:02 Lymph % (Auto) 29.2 % (21.0-51.0) 01/23/21 05:02 [place] % (Auto) 11.7 % (0.0-13.0) 01/23/21 05:02 Eos % (Auto) 2.7 % (0.9-2.9) 01/23/21 05:02 Baso % (Auto) 0.5 % (0.2-1.0) 01/23/21 05:02 Neut # (Auto) 3.7 x10^3/uL (2.2-4.8) 01/23/21 05:02 Lymph # (Auto) 1.9 X10^3/uL (1.3-2.9) 01/23/21 05:02 [place] # (Auto) 0.8 x10^3/uL (0.3-0.8) 01/23/21 05:02 Eos # (Auto) 0.2 x10^3/uL (0.0-0.2) 01/23/21 05:02 Baso # (Auto) 0.0 X10^3/uL (0.0-0.1) 01/23/21 05:02 Absolute Nucleated RBC 0.1 /100WBC 01/23/21 05:02 Plt Morphology Comment Normal (NORMAL) 01/23/21 05:02 RBC Morphology Normal (NORMAL) 01/23/21 05:02 Sodium 140 mmol/L (136-145) 01/23/21 05:02 Corrected Sodium 142 mmol/L (136-145) 01/23/21 05:02 Potassium 3.9 mmol/L (3.5-5.1) 01/23/21 05:02 Chloride 105 mmol/L (98-107) 01/23/21 05:02 Carbon Dioxide 28.0 mmol/L (21-32) 01/23/21 05:02 BUN 9 mg/dL (7-18) 01/23/21 05:02 Creatinine 0.78 mg/dL (0.55-1.02) 01/23/21 05:02 Est GFR (MDRD) Af Amer > 60 (>60) 01/23/21 05:02 Est GFR (MDRD) Non-Af > 60 (>60) 01/23/21 05:02 Glucose 170 mg/dL (65-99) H 01/23/21 05:02 Calcium 9.0 mg/dL (8.5-10.1) 01/23/21 05:02 Corrected Calcium 9.6 mg/dL (8.5-10.1) 01/23/21 05:02 Total Bilirubin 0.60 mg/dL (0.2-1.0) 01/23/21 05:02 AST 18 Units/L (15-37) 01/23/21 05:02 ALT 26 Units/L (12-78) 01/23/21 05:02 Alkaline Phosphatase 59 Units/L (46-116) 01/23/21 05:02 Total Protein 7.3 g/dL (6.4-8.2) 01/23/21 05:02 Albumin 3.3 g/dL (3.4-5.0) L 01/23/21 05:02 Globulin 4.0 g/dL (2.5-4.5) 01/23/21 05:02 Albumin/Globulin Ratio 0.8 Ratio (1.1-2.1) L 01/23/21 05:02 Amylase 79 Units/L (25-115) 01/21/21 17:26 Lipase 165 Units/L (73-393) 01/21/21 17:26 Stool Description 10g liquid green 01/22/21 11:36 Stool Description 10g liquid green 01/22/21 11:36 Stl Occult Blood (IFOB) Positive (NEGATIVE) A 01/22/21 11:36 Stool for White Cells Positive (NEGATIVE) A 01/22/21 11:36 Stl C. diff Tox B Gene Negative (NEGATIVE) 01/22/21 11:36 Stl C. diff [id number]-NAP1-BI Presumptive negative (NEGATIVE) 01/22/21 11:36 Cryptosporid parvum Ag Negative (NEGATIVE) 01/22/21 11:36 Giardia lamblia Ag Negative (NEGATIVE) 01/22/21 11:36 Plan (1) Sigmoid diverticulitis: Status: Acute Plan: IVF, IV antibiotics, NPO, advance diet as tolerated.
[2021-01-23] MEDS ORDERED: GLUCOPHAGE ONE ×2 (09:02→19:49)
[2021-01-23] MEDS ORDERED: ZESTRIL TAB 20 MG ONE (09:02)
[2021-01-23] MEDS: CIPRO IV 400 MG PREMIX* 400 MG/200 ML IV.SOLN. IV SCH ×2 (09:13→20:48)
[2021-01-23] MEDS: LOVENOX INJ 40 MG SYR SC SCH (09:14)
[2021-01-23] MEDS: NORVASC TAB 10 MG PO SCH (09:15)
[2021-01-23] MEDS: ZESTRIL TAB 20 MG PO SCH (09:15)
[2021-01-23] MEDS: GLUCOPHAGE PO SCH ×2 (09:15→20:47)
[2021-01-23] MEDS: HYDROCHLOROTHIAZIDE 12.5 MG CAP PO SCH (09:16)
[2021-01-23] MEDS: PEPCID TAB 20 MG PO SCH ×2 (09:16→20:47)
[2021-01-23] MEDS: MAGIC MOUTHWASH MT SCH ×4 (10:52→20:48)
[2021-01-23] MEDS ORDERED: ANTIVERT TAB 25 MG PO PRN (13:54)
[2021-01-23] MEDS: FIORICET TAB PO PRN ×2 (15:35→20:47)
[2021-01-23] MEDS: CARAFATE PO SCH (16:39)
[2021-01-23] MEDS ORDERED: FLAGYL IV PREMIX 500 MG BAG 500 MG/100 ML BAG IV ONE (19:49)
[2021-01-23] MEDS ORDERED: PEPCID TAB 20 MG ONE (19:49)
[2021-01-23] MEDS ORDERED: CIPRO IV 400 MG PREMIX* 400 MG/200 ML IV.SOLN. IV ONE (19:49)
[2021-01-23] MEDS: PHENERGAN INJ 25 MG IM PRN (22:02)
[2021-01-24] MEDS: NS 1000 ML 1,000 ML IV SCH ×3 (04:30→17:35)
[2021-01-24] MEDS ORDERED: CATAPRES TAB 0.1 MG PO ONE (04:32)
[2021-01-24] MEDS ORDERED: CATAPRES TAB 0.1 MG ONE (04:34)
[2021-01-24] MEDS: CARAFATE PO SCH ×2 (05:34→16:56)
[2021-01-24] MEDS: FLAGYL IV PREMIX 500 MG BAG 500 MG/100 ML BAG IV SCH ×3 (05:34→22:08)
[2021-01-24 06:38] LABS: BASOPHILS % (AUTO) 0.4 % (0.2-1.0); EOSINOPHILS # (AUTO) 0.1 x10^3/uL (0.0-0.2); EOSINOPHILS % (AUTO) 2.7 % (0.9-2.9); HEMATOCRIT 37.5 % (36.0-47.0); HEMOGLOBIN 12.8 g/dL (12.0-16.0); LYMPHOCYTES # (AUTO) 1.5 X10^3/uL (1.3-2.9); LYMPHOCYTES % (AUTO) 39.3 % (21.0-51.0); MEAN CORPUSCULAR HEMOGLOBIN 30.6 pg (27.0-34.0); MEAN CORPUSCULAR VOLUME 89.9 fL (80.0-100.0); MEAN PLATELET VOLUME 8.1 fL (7.4-11.0); MONOCYTES # (AUTO) 0.4 x10^3/uL (0.3-0.8); MONOCYTES % (AUTO) 11.6 % (0.0-13.0); NEUTROPHILS # (AUTO) 1.7 x10^3/uL (2.2-4.8); PLATELET COUNT 190 X10^3/uL (150.0-450.0); RED BLOOD COUNT 4.17 X10^6/uL (3.5-5.4); RED CELL DISTRIBUTION WIDTH 13.1 % (11.6-16.5); WHITE BLOOD COUNT 3.7 X10^3/uL (3.6-10.0)
[2021-01-24 07:05] LABS: ALANINE AMINOTRANSFERASE 25 Units/L (12-78); ALKALINE PHOSPHATASE 52 Units/L (46-116); ASPARTATE AMINO TRANSFERASE 19 Units/L (15-37); BLOOD UREA NITROGEN 7 mg/dL (7-18); CARBON DIOXIDE 25.9 mmol/L (21-32); CHLORIDE 108 mmol/L (98-107); COR CA(FOR HYPOALB) 9.8 mg/dL (8.5-10.1); COR NA(FOR HYPERGLY) 145 mmol/L (136-145); CREATININE 0.83 mg/dL (0.55-1.02); SODIUM 143 mmol/L (136-145); TOTAL PROTEIN 6.6 g/dL (6.4-8.2); eGFR NON BLACK RACES > 60 (>60)
[2021-01-24] MEDS ORDERED: ZESTRIL TAB 20 MG ONE ×2 (08:08→20:16)
[2021-01-24] MEDS ORDERED: GLUCOPHAGE ONE ×2 (08:08→20:15)
[2021-01-24] MEDS: GLUCOPHAGE PO SCH ×2 (08:37→20:44)
[2021-01-24] MEDS: NORVASC TAB 10 MG PO SCH (08:37)
[2021-01-24] MEDS: NORCO 5/325 MG TAB PO PRN (08:37)
[2021-01-24] MEDS: LOVENOX INJ 40 MG SYR SC SCH (08:39)
[2021-01-24] MEDS: ZESTRIL TAB 20 MG PO SCH ×2 (08:39→20:45)
[2021-01-24] MEDS: HYDROCHLOROTHIAZIDE 12.5 MG CAP PO SCH (08:40)
[2021-01-24] MEDS: PEPCID TAB 20 MG PO SCH ×2 (08:40→20:48)
[2021-01-24] MEDS: CIPRO IV 400 MG PREMIX* 400 MG/200 ML IV.SOLN. IV SCH ×2 (08:40→20:47)
[2021-01-24] MEDS: MAGIC MOUTHWASH MT SCH ×4 (10:09→20:50)
[2021-01-24] MEDS ORDERED: K-RIDER 10 MEQ/NS 100 ML 10 MEQ/100 ML BAG IV PRN (15:13)
[2021-01-24] MEDS ORDERED: KLOR-CON PO PRN (15:13)
[2021-01-24] MEDS ORDERED: POTASSIUM CHL 60 MEQ/NS 0.45% 500 ML IV PRN (15:13)
[2021-01-24] MEDS ORDERED: POTASSIUM CHLORIDE LIQ 20 MEQ UDC PO PRN (15:13)
[2021-01-24] MEDS ORDERED: POTASSIUM CHL 40 MEQ/NS 0.45% 500 ML IV PRN (15:13)
[2021-01-24] MEDS ORDERED: MICRO K EXTEN CAP 10 MEQ PO PRN (15:13)
[2021-01-24] MEDS: FIORICET TAB PO PRN (15:50)
[2021-01-24] MEDS: K-DUR TAB 20 MEQ PO PRN (15:50)
[2021-01-24] MEDS: MAGNESIUM SULFATE 1 GRAM/100 mL PREMIX 1 GM/100 ML BAG IV PRN ×2 (15:51→17:08)
--- NOTE | 2021-01-24 19:37 | PCM.PROG ---
Progress Note - Progress Note for Day of Date of Exam: 01/23/21 - Subjective Subjective: IS BEING TREATED FOR SIGMOID DIVERTICULITIS. TODAY, SHE IS ALERT AND ORIENTED, LYING IN BED ON MORNING ROUNDS. SHE HAD A COLONOSCOPY APPROXIMATELY 12 DAYS AGO WHICH REVEALED AN ISCHEMIC ULCER OF THE ASCENDING COLON.SHE CONTINUES WITH COMPLAINTS OF LLQ ABDOMINAL PAIN AND NAUSEA. ON EX AMINATION, HEART IS REGULAR IN RATE AND RHYTHM. BILATERAL LUNGS ARE NOTED WITH DIMINISHED LUNG SOUNDS THROUGHOUT. ABDOMEN IS ROUND, SOFT, AND NOTED TO HAVE TENDERNESS TO THE LLQ. NORMAL BOWEL SOUNDS NOTED IN ALL QUADRANTS. HER VITALS THIS MORNING ARE: 98.5-86-20-98%-195/93. LABS WERE OBTAINED. GLUCOSE 170, ALBUMIN 3.3. SHE IS OTHERWISE HEMODYNAMICALLY STABLE. STOOLS ARE POSITIVE FOR OCCULT BLOOD AND WHITE CELLS. STOOL CULTURE IS PENDING. SHE IS CURRENTLY RECEIVING NORMAL SALINE AT 125ML/HR, FLAGYL 500MG IV Q8H, CIPRO 400MG IV Q12H, LOVENOX 40MG SC DAILY, THE POTASSIUM AND MAGNESIUM PROTOCOLS, ZOFRAN 4MG PO Q6H PRN, MORPHINE 2MG IV Q4H PRN PAIN, AND HER HOME MEDICATIOSN WERE RESUMED. WE WILL CONTINUE WITH CURRENT PLAN OF CARE TODAY AND ADD PHENERGAN 25MG IV Q6H PRN NAUSEA. OTHERWISE, WE PLAN TO FOLLOW UP WITH AM LABS AND CONTINUE TO MONITOR. TIME SPENT ON CLINICAL ASSESSMENT, REVIEWING LABS AND IMAGING, DECISION MAKING, AND DOCUMENTATION WAS GREATER THAN 75 MINUTES. - Past Medical Family Social History Past Med/Fam/Surg Hx: No changes since H&P Allergies: Allergies No Known Drug Allergies Allergy (Verified 01/21/21 16:10) - Review of Systems ROS: No change since H&P - Vital Signs and I&O's Vital Signs: Temperature 98.4 F Pulse Rate [Left Brachial] 72 Respiratory Rate 20 Blood Pressure [Left Arm] 139/76 Blood Pressure [Right Arm] 147/75 Blood Pressure 120/89 O2 Sat by Pulse Oximetry 98 Intake and Output: Intake & Output 01/22/21 01/23/21 01/24/21 01/25/21 11:59 11:59 11:59 11:59 Intake Total 350 / 350 4005 / 4005 4156 / 4156 1680 / 1680 Balance 350 / 350 4005 / 4005 4156 / 4156 1680 / 1680 - Physical Exam Oriented: Normal Eyes: Normal Ear: Normal Nose: Normal Throat: Normal Respiratory: Normal Cardiovascular: Normal : Normal Auscultation: Bowel Sounds: Normal Palpation: Normal Tenderness: LUQ, LLQ, Epigastric (soft , full abdomen with LLQ tenderness with rebound ..BS+), Moderate Skin: Normal Musculoskeletal: Normal Psychiatric: Normal Mood Description: Calm, Appropriate Affect: Normal Speech Pattern: Clear, Appropriate - Laboratory and Diagnostics Result Diagrams: 01/24/21 05:40 01/24/21 05:40 Labs: 01/22/21 11:36 Stool Stool Culture - Final 01/22/21 11:36 Stool - Final Laboratory WBC 3.7 X10^3/uL (3.6-10.0) 01/24/21 05:40 RBC 4.17 X10^6/uL (3.5-5.4) 01/24/21 05:40 Hgb 12.8 g/dL (12.0-16.0) 01/24/21 05:40 Hct 37.5 % (36.0-47.0) 01/24/21 05:40 MCV 89.9 fL (80.0-100.0) 01/24/21 05:40 MCH 30.6 pg (27.0-34.0) 01/24/21 05:40 MCHC 34.0 g/dL (33.0-35.0) 01/24/21 05:40 RDW 13.1 % (11.6-16.5) 01/24/21 05:40 Plt Count 190 X10^3/uL (150.0-450.0) 01/24/21 05:40 Plt Count Comment Adequate (ADEQUATE) 01/23/21 05:02 MPV 8.1 fL (7.4-11.0) 01/24/21 05:40 Neut % (Auto) 46.0 % (42.0-75.0) 01/24/21 05:40 Lymph % (Auto) 39.3 % (21.0-51.0) 01/24/21 05:40 [place] % (Auto) 11.6 % (0.0-13.0) 01/24/21 05:40 Eos % (Auto) 2.7 % (0.9-2.9) 01/24/21 05:40 Baso % (Auto) 0.4 % (0.2-1.0) 01/24/21 05:40 Neut # (Auto) 1.7 x10^3/uL (2.2-4.8) L 01/24/21 05:40 Lymph # (Auto) 1.5 X10^3/uL (1.3-2.9) 01/24/21 05:40 [place] # (Auto) 0.4 x10^3/uL (0.3-0.8) 01/24/21 05:40 Eos # (Auto) 0.1 x10^3/uL (0.0-0.2) 01/24/21 05:40 Baso # (Auto) 0.0 X10^3/uL (0.0-0.1) 01/24/21 05:40 Absolute Nucleated RBC 0.1 /100WBC 01/24/21 05:40 Plt Morphology Comment Normal (NORMAL) 01/23/21 05:02 RBC Morphology Normal (NORMAL) 01/23/21 05:02 Sodium 143 mmol/L (136-145) 01/24/21 05:40 Corrected Sodium 145 mmol/L (136-145) 01/24/21 05:40 Potassium 3.7 mmol/L (3.5-5.1) 01/24/21 05:40 Chloride 108 mmol/L (98-107) H 01/24/21 05:40 Carbon Dioxide 25.9 mmol/L (21-32) 01/24/21 05:40 BUN 7 mg/dL (7-18) 01/24/21 05:40 Creatinine 0.83 mg/dL (0.55-1.02) 01/24/21 05:40 Est GFR (MDRD) Af Amer > 60 (>60) 01/24/21 05:40 Est GFR (MDRD) Non-Af > 60 (>60) 01/24/21 05:40 Glucose 170 mg/dL (65-99) H 01/24/21 05:40 POC Glucose (mg/dL) 141 mg/dL (65-99) H 01/24/21 16:25 Calcium 9.0 mg/dL (8.5-10.1) 01/24/21 05:40 Corrected Calcium 9.8 mg/dL (8.5-10.1) 01/24/21 05:40 Magnesium 1.9 mg/dL (1.7-2.9) 01/24/21 05:40 Total Bilirubin 0.60 mg/dL (0.2-1.0) 01/24/21 05:40 AST 19 Units/L (15-37) 01/24/21 05:40 ALT 25 Units/L (12-78) 01/24/21 05:40 Alkaline Phosphatase 52 Units/L (46-116) 01/24/21 05:40 Total Protein 6.6 g/dL (6.4-8.2) 01/24/21 05:40 Albumin 3.0 g/dL (3.4-5.0) L 01/24/21 05:40 Globulin 3.6 g/dL (2.5-4.5) 01/24/21 05:40 Albumin/Globulin Ratio 0.8 Ratio (1.1-2.1) L 01/24/21 05:40 Amylase 79 Units/L (25-115) 01/21/21 17:26 Lipase 165 Units/L (73-393) 01/21/21 17:26 Stool Description 10g liquid green 01/22/21 11:36 Stool Description 10g liquid green 01/22/21 11:36 Stl Occult Blood (IFOB) Positive (NEGATIVE) A 01/22/21 11:36 Stool for White Cells Positive (NEGATIVE) A 01/22/21 11:36 Stl C. diff Tox B Gene Negative (NEGATIVE) 01/22/21 11:36 Stl C. diff 027-NAP1-BI Presumptive negative (NEGATIVE) 01/22/21 11:36 Cryptosporid parvum Ag Negative (NEGATIVE) 01/22/21 11:36 Giardia lamblia Ag Negative (NEGATIVE) 01/22/21 11:36 - Plan (1) Sigmoid diverticulitis Status: Acute Plan: IVF, IV antibiotics, NPO, advance diet as tolerated.
[2021-01-24] MEDS: ZOFRAN TAB 4 MG PO PRN (20:46)
--- NOTE | 2021-01-25 00:11 | PCM.PROG ---
Progress Note - Progress Note for Day of Date of Exam: 01/24/21 - Subjective Subjective: IS BEING TREATED FOR SIGMOID DIVERTICULITIS. TODAY, SHE IS ALERT AND ORIENTED, LYING IN BED ON MORNING ROUNDS. SHE HAD A COLONOSCOPY APPROXIMATELY 13 DAYS AGO WHICH REVEALED AN ISCHEMIC ULCER OF THE ASCENDING COLON.SHE CONTINUES WITH COMPLAINTS OF LLQ ABDOMINAL PAIN AND NAUSEA. ON EX AMINATION, HEART IS REGULAR IN RATE AND RHYTHM. BILATERAL LUNGS ARE NOTED WITH DIMINISHED LUNG SOUNDS THROUGHOUT. ABDOMEN IS ROUND, SOFT, AND NOTED TO HAVE TENDERNESS TO THE LLQ. NORMAL BOWEL SOUNDS NOTED IN ALL QUADRANTS. HER VITALS THIS MORNING ARE: 98.5-63-18-100%-117/71. LABS WERE OBTAINED. CHLORIDE 108, GLUCOSE 170, ALBUMIN 3.0. SHE IS OTHERWISE HEMODYNAMICALLY STABLE. STOOLS ARE POSITIVE FOR OCCULT BLOOD AND WHITE CELLS. STOOL CULTURE IS PENDING. SHE IS CURRENTLY RECEIVING NORMAL SALINE AT 125ML/HR, FLAGYL 500MG IV Q8H, CIPRO 400MG IV Q12H, LOVENOX 40MG SC DAILY, THE POTASSIUM AND MAGNESIUM PROTOCOLS, ZOFRAN 4MG PO Q6H PRN, MORPHINE 2MG IV Q4H PRN PAIN, AND HER HOME MEDICATIOSN WERE RE SUMED. WE WILL CONTINUE WITH CURRENT PLAN OF CARE TODAY AND ADD PHENERGAN 25MG IV Q6H PRN NAUSEA. OTHERWISE, WE PLAN TO FOLLOW UP WITH AM LABS AND CONTINUE TO MONITOR. TIME SPENT ON CLINICAL ASSESSMENT, REVIEWING LABS AND IMAGING, DECISION MAKING, AND DOCUMENTATION WAS GREATER THAN 75 MINUTES. - Past Medical Family Social History Past Med/Fam/Surg Hx: No changes since H&P Allergies: Allergies No Known Drug Allergies Allergy (Verified 01/21/21 16:10) - Review of Systems ROS: No change since H&P - Vital Signs and I&O's Vital Signs: Temperature 98.7 F Pulse Rate [Left Brachial] 72 Respiratory Rate 18 Blood Pressure [Left Arm] 162/87 Blood Pressure [Right Arm] 147/75 Blood Pressure 120/89 O2 Sat by Pulse Oximetry 98 Intake and Output: Intake & Output 01/22/21 01/23/21 01/24/21 01/25/21 11:59 11:59 11:59 11:59 Intake Total 350 / 350 4005 / 4005 4156 / 4156 3280 / 3280 Balance 350 / 350 4005 / 4005 4156 / 4156 3280 / 3280 - Physical Exam Oriented: Normal Eyes: Normal Ear: Normal Nose: Normal Throat: Normal Respiratory: Normal Cardiovascular: Normal : Normal Auscultation: Bowel Sounds: Normal Palpation: Normal Tenderness: LUQ, LLQ, Epigastric (soft , full abdomen with LLQ tenderness with rebound ..BS+), Moderate Skin: Normal Musculoskeletal: Normal Psychiatric: Normal Mood Description: Calm, Appropriate Affect: Normal Speech Pattern: Clear, Appropriate - Laboratory and Diagnostics Result Diagrams: 01/24/21 05:40 01/24/21 05:40 Labs: 01/22/21 11:36 Stool Stool Culture - Final 01/22/21 11:36 Stool - Final Laboratory WBC 3.7 X10^3/uL (3.6-10.0) 01/24/21 05:40 RBC 4.17 X10^6/uL (3.5-5.4) 01/24/21 05:40 Hgb 12.8 g/dL (12.0-16.0) 01/24/21 05:40 Hct 37.5 % (36.0-47.0) 01/24/21 05:40 MCV 89.9 fL (80.0-100.0) 01/24/21 05:40 MCH 30.6 pg (27.0-34.0) 01/24/21 05:40 MCHC 34.0 g/dL (33.0-35.0) 01/24/21 05:40 RDW 13.1 % (11.6-16.5) 01/24/21 05:40 Plt Count 190 X10^3/uL (150.0-450.0) 01/24/21 05:40 Plt Count Comment Adequate (ADEQUATE) 01/23/21 05:02 MPV 8.1 fL (7.4-11.0) 01/24/21 05:40 Neut % (Auto) 46.0 % (42.0-75.0) 01/24/21 05:40 Lymph % (Auto) 39.3 % (21.0-51.0) 01/24/21 05:40 [place] % (Auto) 11.6 % (0.0-13.0) 01/24/21 05:40 Eos % (Auto) 2.7 % (0.9-2.9) 01/24/21 05:40 Baso % (Auto) 0.4 % (0.2-1.0) 01/24/21 05:40 Neut # (Auto) 1.7 x10^3/uL (2.2-4.8) L 01/24/21 05:40 Lymph # (Auto) 1.5 X10^3/uL (1.3-2.9) 01/24/21 05:40 [place] # (Auto) 0.4 x10^3/uL (0.3-0.8) 01/24/21 05:40 Eos # (Auto) 0.1 x10^3/uL (0.0-0.2) 01/24/21 05:40 Baso # (Auto) 0.0 X10^3/uL (0.0-0.1) 01/24/21 05:40 Absolute Nucleated RBC 0.1 /100WBC 01/24/21 05:40 Plt Morphology Comment Normal (NORMAL) 01/23/21 05:02 RBC Morphology Normal (NORMAL) 01/23/21 05:02 Sodium 143 mmol/L (136-145) 01/24/21 05:40 Corrected Sodium 145 mmol/L (136-145) 01/24/21 05:40 Potassium 3.7 mmol/L (3.5-5.1) 01/24/21 05:40 Chloride 108 mmol/L (98-107) H 01/24/21 05:40 Carbon Dioxide 25.9 mmol/L (21-32) 01/24/21 05:40 BUN 7 mg/dL (7-18) 01/24/21 05:40 Creatinine 0.83 mg/dL (0.55-1.02) 01/24/21 05:40 Est GFR (MDRD) Af Amer > 60 (>60) 01/24/21 05:40 Est GFR (MDRD) Non-Af > 60 (>60) 01/24/21 05:40 Glucose 170 mg/dL (65-99) H 01/24/21 05:40 POC Glucose (mg/dL) 146 mg/dL (65-99) H 01/24/21 19:47 Calcium 9.0 mg/dL (8.5-10.1) 01/24/21 05:40 Corrected Calcium 9.8 mg/dL (8.5-10.1) 01/24/21 05:40 Magnesium 1.9 mg/dL (1.7-2.9) 01/24/21 05:40 Total Bilirubin 0.60 mg/dL (0.2-1.0) 01/24/21 05:40 AST 19 Units/L (15-37) 01/24/21 05:40 ALT 25 Units/L (12-78) 01/24/21 05:40 Alkaline Phosphatase 52 Units/L (46-116) 01/24/21 05:40 Total Protein 6.6 g/dL (6.4-8.2) 01/24/21 05:40 Albumin 3.0 g/dL (3.4-5.0) L 01/24/21 05:40 Globulin 3.6 g/dL (2.5-4.5) 01/24/21 05:40 Albumin/Globulin Ratio 0.8 Ratio (1.1-2.1) L 01/24/21 05:40 Amylase 79 Units/L (25-115) 01/21/21 17:26 Lipase 165 Units/L (73-393) 01/21/21 17:26 Stool Description 10g liquid green 01/22/21 11:36 Stool Description 10g liquid green 01/22/21 11:36 Stl Occult Blood (IFOB) Positive (NEGATIVE) A 01/22/21 11:36 Stool for White Cells Positive (NEGATIVE) A 01/22/21 11:36 Stl C. diff Tox B Gene Negative (NEGATIVE) 01/22/21 11:36 Stl C. diff 027-NAP1-BI Presumptive negative (NEGATIVE) 01/22/21 11:36 Cryptosporid parvum Ag Negative (NEGATIVE) 01/22/21 11:36 Giardia lamblia Ag Negative (NEGATIVE) 01/22/21 11:36 - Plan (1) Sigmoid diverticulitis Status: Acute Plan: IVF, IV antibiotics, NPO, advance diet as tolerated.
[2021-01-25] MEDS: NS 1000 ML 1,000 ML IV SCH ×3 (00:59→18:21)
[2021-01-25] MEDS: FLAGYL IV PREMIX 500 MG BAG 500 MG/100 ML BAG IV SCH ×3 (05:20→22:28)
[2021-01-25] MEDS: CARAFATE PO SCH ×2 (05:31→16:23)
[2021-01-25 06:12] LABS: BASOPHILS % (AUTO) 0.6 % (0.2-1.0); EOSINOPHILS # (AUTO) 0.1 x10^3/uL (0.0-0.2); EOSINOPHILS % (AUTO) 2.9 % (0.9-2.9); HEMATOCRIT 39.6 % (36.0-47.0); HEMOGLOBIN 13.4 g/dL (12.0-16.0); LYMPHOCYTES # (AUTO) 1.5 X10^3/uL (1.3-2.9); LYMPHOCYTES % (AUTO) 38.7 % (21.0-51.0); MEAN CORPUSCULAR HEMOGLOBIN 30.6 pg (27.0-34.0); MEAN CORPUSCULAR HGB CONC 33.8 g/dL (33.0-35.0); MEAN CORPUSCULAR VOLUME 90.5 fL (80.0-100.0); MONOCYTES # (AUTO) 0.5 x10^3/uL (0.3-0.8); MONOCYTES % (AUTO) 12.8 % (0.0-13.0); NEUTROPHILS # (AUTO) 1.7 x10^3/uL (2.2-4.8); PLATELET COUNT 194 X10^3/uL (150.0-450.0); RED BLOOD COUNT 4.37 X10^6/uL (3.5-5.4); WHITE BLOOD COUNT 3.8 X10^3/uL (3.6-10.0)
[2021-01-25 06:28] LABS: ALANINE AMINOTRANSFERASE 54 Units/L (12-78); ALBUMIN 3.3 g/dL (3.4-5.0); ALKALINE PHOSPHATASE 58 Units/L (46-116); ASPARTATE AMINO TRANSFERASE 72 Units/L (15-37); BLOOD UREA NITROGEN 6 mg/dL (7-18); CALCIUM 9.3 mg/dL (8.5-10.1); CARBON DIOXIDE 25.8 mmol/L (21-32); CHLORIDE 106 mmol/L (98-107); COR CA(FOR HYPOALB) 9.9 mg/dL (8.5-10.1); COR NA(FOR HYPERGLY) 142 mmol/L (136-145); CREATININE 0.87 mg/dL (0.55-1.02); SODIUM 141 mmol/L (136-145); TOTAL PROTEIN 7.1 g/dL (6.4-8.2); eGFR NON BLACK RACES > 60 (>60)
--- NOTE | 2021-01-25 07:47 | DR.PROGNOT ---
Hospital Progress Notes - Progress Note for Day of: Progress Note Date: 01/25/21 - Chief Complaint Chief Complaint: c/o epigastric and lower abdominal pain .. was vomiting last night . normal CBC and lytes . BS 160. - Past Medical Family Social History Past Med/Fam/Surg Hx: No changes since H&P Allergies: Allergies No Known Drug Allergies Allergy (Verified 01/21/21 16:10) - Review Of Systems ROS: No change since H&P - Vital Signs Vital Signs: Temperature 98.5 F Pulse Rate [Left Brachial] 73 Respiratory Rate 18 Blood Pressure [Left Arm] 190/86 Blood Pressure [Right Arm] 150/87 Blood Pressure 120/89 O2 Sat by Pulse Oximetry 98 - Physical Exam Oriented: Normal Eyes: Normal Ear: Normal Nose: Normal Throat: Normal Respiratory: Normal Cardiovascular: Normal : Normal GI:Auscultation: Decreased GI:Palpation: Normal GI: Tenderness: LUQ, LLQ, Epigastric (soft abdomen with moderate to severe epigastric and LLQ tenderness), Moderate Skin: Normal Musculoskeletal: Normal Psychiatric: Normal Mood Description: Calm, Appropriate Affect: Normal Speech Pattern: Clear, Appropriate - Laboratory and Diagnostics Result Diagrams: 01/25/21 05:34 01/25/21 05:36 Labs: 01/22/21 11:36 Stool Stool Culture - Final 01/22/21 11:36 Stool - Final Laboratory WBC 3.8 X10^3/uL (3.6-10.0) 01/25/21 05:34 RBC 4.37 X10^6/uL (3.5-5.4) 01/25/21 05:34 Hgb 13.4 g/dL (12.0-16.0) 01/25/21 05:34 Hct 39.6 % (36.0-47.0) 01/25/21 05:34 MCV 90.5 fL (80.0-100.0) 01/25/21 05:34 MCH 30.6 pg (27.0-34.0) 01/25/21 05:34 MCHC 33.8 g/dL (33.0-35.0) 01/25/21 05:34 RDW 13.0 % (11.6-16.5) 01/25/21 05:34 Plt Count 194 X10^3/uL (150.0-450.0) 01/25/21 05:34 Plt Count Comment Adequate (ADEQUATE) 01/23/21 05:02 MPV 8.0 fL (7.4-11.0) 01/25/21 05:34 Neut % (Auto) 45.0 % (42.0-75.0) 01/25/21 05:34 Lymph % (Auto) 38.7 % (21.0-51.0) 01/25/21 05:34 Pope % (Auto) 12.8 % (0.0-13.0) 01/25/21 05:34 Eos % (Auto) 2.9 % (0.9-2.9) 01/25/21 05:34 Baso % (Auto) 0.6 % (0.2-1.0) 01/25/21 05:34 Neut # (Auto) 1.7 x10^3/uL (2.2-4.8) L 01/25/21 05:34 Lymph # (Auto) 1.5 X10^3/uL (1.3-2.9) 01/25/21 05:34 Pope # (Auto) 0.5 x10^3/uL (0.3-0.8) 01/25/21 05:34 Eos # (Auto) 0.1 x10^3/uL (0.0-0.2) 01/25/21 05:34 Baso # (Auto) 0.0 X10^3/uL (0.0-0.1) 01/25/21 05:34 Absolute Nucleated RBC 0.2 /100WBC 01/25/21 05:34 Plt Morphology Comment Normal (NORMAL) 01/23/21 05:02 RBC Morphology Normal (NORMAL) 01/23/21 05:02 Sodium 141 mmol/L (136-145) 01/25/21 05:36 Corrected Sodium 142 mmol/L (136-145) 01/25/21 05:36 Potassium 3.7 mmol/L (3.5-5.1) 01/25/21 05:36 Chloride 106 mmol/L (98-107) 01/25/21 05:36 Carbon Dioxide 25.8 mmol/L (21-32) 01/25/21 05:36 BUN 6 mg/dL (7-18) L 01/25/21 05:36 Creatinine 0.87 mg/dL (0.55-1.02) 01/25/21 05:36 Est GFR (MDRD) Af Amer > 60 (>60) 01/25/21 05:36 Est GFR (MDRD) Non-Af > 60 (>60) 01/25/21 05:36 Glucose 160 mg/dL (65-99) H 01/25/21 05:36 POC Glucose (mg/dL) 138 mg/dL (65-99) H 01/25/21 05:22 Calcium 9.3 mg/dL (8.5-10.1) 01/25/21 05:36 Corrected Calcium 9.9 mg/dL (8.5-10.1) 01/25/21 05:36 Magnesium 2.0 mg/dL (1.7-2.9) 01/25/21 05:36 Total Bilirubin 0.50 mg/dL (0.2-1.0) 01/25/21 05:36 AST 72 Units/L (15-37) H 01/25/21 05:36 ALT 54 Units/L (12-78) 01/25/21 05:36 Alkaline Phosphatase 58 Units/L (46-116) 01/25/21 05:36 Total Protein 7.1 g/dL (6.4-8.2) 01/25/21 05:36 Albumin 3.3 g/dL (3.4-5.0) L 01/25/21 05:36 Globulin 3.8 g/dL (2.5-4.5) 01/25/21 05:36 Albumin/Globulin Ratio 0.9 Ratio (1.1-2.1) L 01/25/21 05:36 Amylase 79 Units/L (25-115) 01/21/21 17:26 Lipase 165 Units/L (73-393) 01/21/21 17:26 Stool Description 10g liquid green 01/22/21 11:36 Stool Description 10g liquid green 01/22/21 11:36 Stl Occult Blood (IFOB) Positive (NEGATIVE) A 01/22/21 11:36 Stool for White Cells Positive (NEGATIVE) A 01/22/21 11:36 Stl C. diff Tox B Gene Negative (NEGATIVE) 01/22/21 11:36 Stl C. diff [id number] Presumptive negative (NEGATIVE) 01/22/21 11:36 Cryptosporid parvum Ag Negative (NEGATIVE) 01/22/21 11:36 Giardia lamblia Ag Negative (NEGATIVE) 01/22/21 11:36 - Assessment and Plan 1: nausea and vomiting . subsiding acute sigmoid diverticulitis .. ischemic ulceration in the ascending colon on recent colonoscopy . on IV ATB , IVFF and Lovenox .. to have GB US today .. - Problem Patient Problems: Patient Problems Sigmoid diverticulitis (Acute) K57.32
--- NOTE | 2021-01-25 08:17 | PCM.PROG ---
Progress Note Progress Note for Day of Date of Exam: 01/25/21 Subjective Subjective: PT IS A 65 YEAR OLD FEMALE ADMITTED FOR ACUTE SIGMOID DIVERTICULITIS. TODAY, SHE IS ALERT AND ORIENTED, LYING IN BED ON MORNING ROUNDS. THIS MORNING SHE CONTINUES TO HAVE ABDOMINAL PAIN WITH ASSOCIATED NAUSEA AND VOMITING THAT IS GETTING WORSE. ON EXAMINATION, HEART IS REGULAR IN RATE AND RHYTHM. BILATERAL LUNGS ARE NOTED WITH DIMINISHED LUNG SOUNDS THROUGHOUT. ABDOMEN IS ROUND, SOFT, TENDERNESS EPIGASTRIC AND RUQ, NORMAL BOWEL SOUNDS NOTED IN ALL QUADRANTS. LABS/IMAGING:WBC 3.8, HGB 13.4, PLT 194, NA 141, K 3.7, CREATININE 0.87, GLUCOSE 160, AST 72, ALT 54, ALKP 58, STOOLS ARE POSITIVE FOR OCCULT BLOOD AND WHITE CELLS. STOOL CULTURE IS NEGATIVE. SHE IS CURRENTLY RECEIVING NORMAL SALINE AT 125ML/HR, FLAGYL 500MG IV Q8H, CIPRO 400MG IV Q12H, LOVENOX 40MG SC DAILY, THE POTASSIUM AND MAGNESIUM PROTOCOLS, ZOFRAN 4MG PO Q6H PRN, PHENERGAN 25MG IV Q6H PRN, MORPHINE 2MG IV Q4H PRN PAIN, AND HER HOME MEDICATIONS. WILL ORDER U/S GALLBLADDER TODAY. CONTINUE TO MONITOR AND FOLLOW UP LABS/IMAGING IN THE MORNING. Past Medical Family Social History Past Med/Fam/Surg Hx: No changes since H&P Allergies: Allergies No Known Drug Allergies Allergy (Verified 01/21/21 16:10) Review of Systems ROS: No change since H&P Vital Signs and I&O's Vital Signs: Temperature 99.0 F Pulse Rate [Left Brachial] 76 Respiratory Rate 18 Blood Pressure [Left Arm] 174/85 Blood Pressure [Right Arm] 150/87 Blood Pressure 120/89 O2 Sat by Pulse Oximetry 99 Intake and Output: Intake & Output 01/22/21 01/23/21 01/24/21 01/25/21 23:59 23:59 23:59 23:59 Intake Total 2270 / 2270 5445 / 5445 4426 / 4426 1000 / 1000 Balance 2270 / 2270 5445 / 5445 4426 / 4426 1000 / 1000 Physical Exam Oriented: Normal Eyes: Normal Ear: Normal Nose: Normal Throat: Normal Respiratory: Normal Cardiovascular: Normal : Normal Auscultation: Bowel Sounds: Decreased Tenderness: RUQ, LUQ, LLQ, Epigastric (soft abdomen with moderate to severe epigastric and LLQ tenderness) and Moderate Skin: Normal Musculoskeletal: Normal Psychiatric: Normal Mood Description: Calm and Appropriate Affect: Normal Speech Pattern: Clear and Appropriate Laboratory and Diagnostics Result Diagrams: 01/25/21 05:34 01/25/21 05:36 Labs: 01/22/21 11:36 Stool Stool Culture - Final 01/22/21 11:36 Stool - Final Laboratory WBC 3.8 X10^3/uL (3.6-10.0) 01/25/21 05:34 RBC 4.37 X10^6/uL (3.5-5.4) 01/25/21 05:34 Hgb 13.4 g/dL (12.0-16.0) 01/25/21 05:34 Hct 39.6 % (36.0-47.0) 01/25/21 05:34 MCV 90.5 fL (80.0-100.0) 01/25/21 05:34 MCH 30.6 pg (27.0-34.0) 01/25/21 05:34 MCHC 33.8 g/dL (33.0-35.0) 01/25/21 05:34 RDW 13.0 % (11.6-16.5) 01/25/21 05:34 Plt Count 194 X10^3/uL (150.0-450.0) 01/25/21 05:34 Plt Count Comment Adequate (ADEQUATE) 01/23/21 05:02 MPV 8.0 fL (7.4-11.0) 01/25/21 05:34 Neut % (Auto) 45.0 % (42.0-75.0) 01/25/21 05:34 Lymph % (Auto) 38.7 % (21.0-51.0) 01/25/21 05:34 [place] % (Auto) 12.8 % (0.0-13.0) 01/25/21 05:34 Eos % (Auto) 2.9 % (0.9-2.9) 01/25/21 05:34 Baso % (Auto) 0.6 % (0.2-1.0) 01/25/21 05:34 Neut # (Auto) 1.7 x10^3/uL (2.2-4.8) L 01/25/21 05:34 Lymph # (Auto) 1.5 X10^3/uL (1.3-2.9) 01/25/21 05:34 [place] # (Auto) 0.5 x10^3/uL (0.3-0.8) 01/25/21 05:34 Eos # (Auto) 0.1 x10^3/uL (0.0-0.2) 01/25/21 05:34 Baso # (Auto) 0.0 X10^3/uL (0.0-0.1) 01/25/21 05:34 Absolute Nucleated RBC 0.2 /100WBC 01/25/21 05:34 Plt Morphology Comment Normal (NORMAL) 01/23/21 05:02 RBC Morphology Normal (NORMAL) 01/23/21 05:02 Sodium 141 mmol/L (136-145) 01/25/21 05:36 Corrected Sodium 142 mmol/L (136-145) 01/25/21 05:36 Potassium 3.7 mmol/L (3.5-5.1) 01/25/21 05:36 Chloride 106 mmol/L (98-107) 01/25/21 05:36 Carbon Dioxide 25.8 mmol/L (21-32) 01/25/21 05:36 BUN 6 mg/dL (7-18) L 01/25/21 05:36 Creatinine 0.87 mg/dL (0.55-1.02) 01/25/21 05:36 Est GFR (MDRD) Af Amer > 60 (>60) 01/25/21 05:36 Est GFR (MDRD) Non-Af > 60 (>60) 01/25/21 05:36 Glucose 160 mg/dL (65-99) H 01/25/21 05:36 POC Glucose (mg/dL) 138 mg/dL (65-99) H 01/25/21 05:22 Calcium 9.3 mg/dL (8.5-10.1) 01/25/21 05:36 Corrected Calcium 9.9 mg/dL (8.5-10.1) 01/25/21 05:36 Magnesium 2.0 mg/dL (1.7-2.9) 01/25/21 05:36 Total Bilirubin 0.50 mg/dL (0.2-1.0) 01/25/21 05:36 AST 72 Units/L (15-37) H 01/25/21 05:36 ALT 54 Units/L (12-78) 01/25/21 05:36 Alkaline Phosphatase 58 Units/L (46-116) 01/25/21 05:36 Total Protein 7.1 g/dL (6.4-8.2) 01/25/21 05:36 Albumin 3.3 g/dL (3.4-5.0) L 01/25/21 05:36 Globulin 3.8 g/dL (2.5-4.5) 01/25/21 05:36 Albumin/Globulin Ratio 0.9 Ratio (1.1-2.1) L 01/25/21 05:36 Amylase 79 Units/L (25-115) 01/21/21 17:26 Lipase 165 Units/L (73-393) 01/21/21 17:26 Stool Description 10g liquid green 01/22/21 11:36 Stool Description 10g liquid green 01/22/21 11:36 Stl Occult Blood (IFOB) Positive (NEGATIVE) A 01/22/21 11:36 Stool for White Cells Positive (NEGATIVE) A 01/22/21 11:36 Stl C. diff Tox B Gene Negative (NEGATIVE) 01/22/21 11:36 Stl C. diff [id number] Presumptive negative (NEGATIVE) 01/22/21 11:36 Cryptosporid parvum Ag Negative (NEGATIVE) 01/22/21 11:36 Giardia lamblia Ag Negative (NEGATIVE) 01/22/21 11:36 Plan (1) Sigmoid diverticulitis: Status: Acute Plan: IVF, IV antibiotics, diet advance diet as tolerated.
--- NOTE | 2021-01-25 08:34 | US ---
HISTORYRUQ PAIN, NAUSEASTUDYGALL BLADDERCOMPARISONNoneTECHNIQUEMultiple sullivan scale and color flow Doppler images of the right upper quadrant were obtained.FINDINGSThe liver is normal in echotexture and size. The right lobe of the liver measures 14.6 cm sagittal. No focal intraparenchymal mass or intrahepatic biliary ductal dilatation can be observed. Normal flow is seen in the main portal vein hepatic veins and the hepatic artery is patent. The gallbladder demonstrates sludge and floating echogenic foci consistent with crystals but no dependent shadowing stones are seen.. The common bile duct is unremarkable measuring 5 mm.. No pericholecystic fluid or gallbladder wall thickening can be observed .The right kidney appears normal in size without focal parenchymal mass or nephrolithiasis. The right kidney measurers 10.4 cm in length by 4 cm AP by 5.9 cm transverse with a cortical thickness 1.2 cm and normal vascular flow.. No hydronephrosis or perirenal fluid can be observed. The pancreatic head and body are unremarkable. The pancreatic tail is largely obscured by overlying bowel gas.The aorta tapers normally without aneurysm.IMPRESSIONSludge and tiny echogenic foci are seen but no classic dependent shadowing stones are identified. Or wall is normal.The liver and biliary ducts are normal.The right kidney and visualized head body of the pancreas are normal.Electronically signed by: ELLI GUTIERREZ (January 25, 2021 08:32:17)
[2021-01-25] MEDS: LOVENOX INJ 40 MG SYR SC SCH (08:42)
[2021-01-25] MEDS: CIPRO IV 400 MG PREMIX* 400 MG/200 ML IV.SOLN. IV SCH ×2 (08:42→20:45)
[2021-01-25] MEDS: MORPHINE SULFATE INJ 2 MG INJ IVP PRN (08:50)
[2021-01-25] MEDS: GLUCOPHAGE PO SCH (08:55)
[2021-01-25] MEDS: MAGIC MOUTHWASH MT SCH ×4 (08:57→21:11)
[2021-01-25] MEDS: PEPCID TAB 20 MG PO SCH ×2 (08:57→20:43)
[2021-01-25] MEDS ORDERED: ZESTRIL TAB 20 MG ONE ×2 (08:58→20:15)
[2021-01-25] MEDS: NORVASC TAB 10 MG PO SCH (09:06)
[2021-01-25] MEDS: ZESTRIL TAB 20 MG PO SCH ×2 (09:06→20:44)
[2021-01-25] MEDS: HYDROCHLOROTHIAZIDE 12.5 MG CAP PO SCH (09:07)
[2021-01-25] MEDS: NORCO 5/325 MG TAB PO PRN (11:44)
[2021-01-25] MEDS: ZOFRAN TAB 4 MG PO PRN ×2 (11:50→20:44)
[2021-01-25] MEDS: K-DUR TAB 20 MEQ PO PRN (20:44)
[2021-01-25] MEDS: PHENERGAN INJ 25 MG IM PRN (21:57)
[2021-01-26] MEDS: NS 1000 ML 1,000 ML IV SCH ×3 (01:00→17:27)
[2021-01-26] MEDS: FLAGYL IV PREMIX 500 MG BAG 500 MG/100 ML BAG IV SCH ×3 (05:24→22:10)
[2021-01-26] MEDS: CARAFATE PO SCH ×2 (05:33→17:54)
[2021-01-26 06:04] LABS: BASOPHILS % (AUTO) 0.6 % (0.2-1.0); EOSINOPHILS # (AUTO) 0.1 x10^3/uL (0.0-0.2); EOSINOPHILS % (AUTO) 2.6 % (0.9-2.9); HEMATOCRIT 40.4 % (36.0-47.0); HEMOGLOBIN 13.8 g/dL (12.0-16.0); LYMPHOCYTES # (AUTO) 1.9 X10^3/uL (1.3-2.9); LYMPHOCYTES % (AUTO) 36.9 % (21.0-51.0); MEAN CORPUSCULAR HEMOGLOBIN 30.6 pg (27.0-34.0); MEAN CORPUSCULAR HGB CONC 34.2 g/dL (33.0-35.0); MEAN CORPUSCULAR VOLUME 89.3 fL (80.0-100.0); MEAN PLATELET VOLUME 7.7 fL (7.4-11.0); MONOCYTES # (AUTO) 0.7 x10^3/uL (0.3-0.8); MONOCYTES % (AUTO) 13.7 % (0.0-13.0); NEUTROPHILS # (AUTO) 2.3 x10^3/uL (2.2-4.8); NEUTROPHILS % (AUTO) 46.2 % (42.0-75.0); PLATELET COUNT 212 X10^3/uL (150.0-450.0); RED BLOOD COUNT 4.52 X10^6/uL (3.5-5.4); RED CELL DISTRIBUTION WIDTH 12.9 % (11.6-16.5)
[2021-01-26 06:35] LABS: ALANINE AMINOTRANSFERASE 96 Units/L (12-78); ALBUMIN 3.5 g/dL (3.4-5.0); ALKALINE PHOSPHATASE 63 Units/L (46-116); ASPARTATE AMINO TRANSFERASE 125 Units/L (15-37); BLOOD UREA NITROGEN 5 mg/dL (7-18); CALCIUM 9.2 mg/dL (8.5-10.1); CHLORIDE 105 mmol/L (98-107); COR NA(FOR HYPERGLY) 141 mmol/L (136-145); CREATININE 0.95 mg/dL (0.55-1.02); SODIUM 140 mmol/L (136-145); TOTAL PROTEIN 7.5 g/dL (6.4-8.2); eGFR NON BLACK RACES > 60 (>60)
[2021-01-26] MEDS ORDERED: ZESTRIL TAB 20 MG ONE ×2 (08:20→21:04)
[2021-01-26] MEDS: CIPRO IV 400 MG PREMIX* 400 MG/200 ML IV.SOLN. IV SCH ×2 (08:49→21:22)
[2021-01-26] MEDS: PEPCID TAB 20 MG PO SCH ×2 (08:49→21:22)
[2021-01-26] MEDS: NORVASC TAB 10 MG PO SCH (08:50)
[2021-01-26] MEDS: ZESTRIL TAB 20 MG PO SCH ×2 (08:50→21:23)
[2021-01-26] MEDS: HYDROCHLOROTHIAZIDE 12.5 MG CAP PO SCH (08:50)
[2021-01-26] MEDS: LOVENOX INJ 40 MG SYR SC SCH (08:51)
[2021-01-26] MEDS: MAGIC MOUTHWASH MT SCH ×4 (08:54→21:36)
--- NOTE | 2021-01-26 10:02 | PCM.PROG ---
Progress Note Progress Note for Day of Date of Exam: 01/26/21 Subjective Subjective: PT IS A 65 YEAR OLD FEMALE ADMITTED FOR ACUTE SIGMOID DIVERTICULITIS. THIS MORNING SHE REPORTS IMPROVEMENT IN ABDOMINAL PAIN AND NAUSEA AND VOMITING LONG SHE LIMITS HER PO INTAKE. SHE STILL HAS SOME TENDERNESS EPIGASTRIC REGION OF ABDOMEN. LABS/IMAGING:WBC 5.0, HGB 13.8, PLT 212, NA 140, K 3.6, CREATININE 0.95, GLUCOSE 154. U/S GALLBLADDER: Sludge and tiny echogenic foci are seen but no classic dependent shadowing stones are identified. Or wall is normal. The liver and biliary ducts are normal. The right kidney and visualized head body of the pancreas are normal. SHE IS CURRENTLY RECEIVING NORMAL SALINE AT 125ML/HR, FLAGYL 500MG IV Q8H, CIPRO 400MG IV Q12H, LOVENOX 40MG SC DAILY, THE POTASSIUM AND MAGNESIUM PROTOCOLS, ZOFRAN 4MG PO Q6H PRN, PHENERGAN 25MG IV Q6H PRN, MORPHINE 2MG IV Q4H PRN PAIN, AND HER HOME MEDICATIONS. DISCUSSED WITH SURGERY, RECOMMENDS EGD TO EVALUATE AT THIS TIME, FURTHER EVALUATION OF GALLBLADDER OUTPATIENT ONCE CURRENT INFECTION IS RESOLVED. CONTINUE TO MONITOR AND FOLLOW UP LABS IN THE MORNING. Past Medical Family Social History Past Med/Fam/Surg Hx: No changes since H&P Allergies: Allergies No Known Drug Allergies Allergy (Verified 01/21/21 16:10) Review of Systems ROS: No change since H&P Vital Signs and I&O's Vital Signs: Temperature 97.9 F Pulse Rate [Left Brachial] 84 Respiratory Rate 18 Blood Pressure [Left Arm] 169/77 Blood Pressure [Right Arm] 150/87 Blood Pressure 120/89 O2 Sat by Pulse Oximetry 98 Intake and Output: Intake & Output 01/23/21 01/24/21 01/25/21 01/26/21 23:59 23:59 23:59 23:59 Intake Total 5445 / 5445 4426 / 4426 5055 / 5055 950 / 950 Balance 5445 / 5445 4426 / 4426 5055 / 5055 950 / 950 Physical Exam Oriented: Normal Eyes: Normal Ear: Normal Nose: Normal Throat: Normal Respiratory: Normal Cardiovascular: Normal : Normal Auscultation: Bowel Sounds: Normal Tenderness: Epigastric (soft abdomen with moderate to severe epigastric and LLQ tenderness) Skin: Normal Musculoskeletal: Normal Psychiatric: Normal Mood Description: Calm and Appropriate Affect: Normal Speech Pattern: Clear and Appropriate Laboratory and Diagnostics Result Diagrams: 01/26/21 05:42 01/26/21 05:42 Labs: 01/22/21 11:36 Stool Stool Culture - Final 01/22/21 11:36 Stool - Final Laboratory WBC 5.0 X10^3/uL (3.6-10.0) 01/26/21 05:42 RBC 4.52 X10^6/uL (3.5-5.4) 01/26/21 05:42 Hgb 13.8 g/dL (12.0-16.0) 01/26/21 05:42 Hct 40.4 % (36.0-47.0) 01/26/21 05:42 MCV 89.3 fL (80.0-100.0) 01/26/21 05:42 MCH 30.6 pg (27.0-34.0) 01/26/21 05:42 MCHC 34.2 g/dL (33.0-35.0) 01/26/21 05:42 RDW 12.9 % (11.6-16.5) 01/26/21 05:42 Plt Count 212 X10^3/uL (150.0-450.0) 01/26/21 05:42 Plt Count Comment Adequate (ADEQUATE) 01/23/21 05:02 MPV 7.7 fL (7.4-11.0) 01/26/21 05:42 Neut % (Auto) 46.2 % (42.0-75.0) 01/26/21 05:42 Lymph % (Auto) 36.9 % (21.0-51.0) 01/26/21 05:42 [place] % (Auto) 13.7 % (0.0-13.0) H 01/26/21 05:42 Eos % (Auto) 2.6 % (0.9-2.9) 01/26/21 05:42 Baso % (Auto) 0.6 % (0.2-1.0) 01/26/21 05:42 Neut # (Auto) 2.3 x10^3/uL (2.2-4.8) 01/26/21 05:42 Lymph # (Auto) 1.9 X10^3/uL (1.3-2.9) 01/26/21 05:42 [place] # (Auto) 0.7 x10^3/uL (0.3-0.8) 01/26/21 05:42 Eos # (Auto) 0.1 x10^3/uL (0.0-0.2) 01/26/21 05:42 Baso # (Auto) 0.0 X10^3/uL (0.0-0.1) 01/26/21 05:42 Absolute Nucleated RBC 0.1 /100WBC 01/26/21 05:42 Plt Morphology Comment Normal (NORMAL) 01/23/21 05:02 RBC Morphology Normal (NORMAL) 01/23/21 05:02 Sodium 140 mmol/L (136-145) 01/26/21 05:42 Corrected Sodium 141 mmol/L (136-145) 01/26/21 05:42 Potassium 3.6 mmol/L (3.5-5.1) 01/26/21 05:42 Chloride 105 mmol/L (98-107) 01/26/21 05:42 Carbon Dioxide 24.0 mmol/L (21-32) 01/26/21 05:42 BUN 5 mg/dL (7-18) L 01/26/21 05:42 Creatinine 0.95 mg/dL (0.55-1.02) 01/26/21 05:42 Est GFR (MDRD) Af Amer > 60 (>60) 01/26/21 05:42 Est GFR (MDRD) Non-Af > 60 (>60) 01/26/21 05:42 Glucose 154 mg/dL (65-99) H 01/26/21 05:42 POC Glucose (mg/dL) 121 mg/dL (65-99) H 01/26/21 05:13 Calcium 9.2 mg/dL (8.5-10.1) 01/26/21 05:42 Corrected Calcium TNP 01/26/21 05:42 Magnesium 2.0 mg/dL (1.7-2.9) 01/25/21 05:36 Total Bilirubin 0.50 mg/dL (0.2-1.0) 01/26/21 05:42 AST 125 Units/L (15-37) H 01/26/21 05:42 ALT 96 Units/L (12-78) H 01/26/21 05:42 Alkaline Phosphatase 63 Units/L (46-116) 01/26/21 05:42 Total Protein 7.5 g/dL (6.4-8.2) 01/26/21 05:42 Albumin 3.5 g/dL (3.4-5.0) 01/26/21 05:42 Globulin 4.0 g/dL (2.5-4.5) 01/26/21 05:42 Albumin/Globulin Ratio 0.9 Ratio (1.1-2.1) L 01/26/21 05:42 Amylase 79 Units/L (25-115) 01/21/21 17:26 Lipase 165 Units/L (73-393) 01/21/21 17:26 Stool Description 10g liquid green 01/22/21 11:36 Stool Description 10g liquid green 01/22/21 11:36 Stl Occult Blood (IFOB) Positive (NEGATIVE) A 01/22/21 11:36 Stool for White Cells Positive (NEGATIVE) A 01/22/21 11:36 Stl C. diff Tox B Gene Negative (NEGATIVE) 01/22/21 11:36 Stl C. diff [id number]-BI Presumptive negative (NEGATIVE) 01/22/21 11:36 Cryptosporid parvum Ag Negative (NEGATIVE) 01/22/21 11:36 Giardia lamblia Ag Negative (NEGATIVE) 01/22/21 11:36 Plan (1) Sigmoid diverticulitis: Status: Acute Plan: IVF, IV antibiotics, diet advance diet as tolerated.
[2021-01-26] MEDS ORDERED: XYLOCAINE 2 % (PLAIN) IJ ONE (12:47)
[2021-01-26] MEDS ORDERED: XYLOCAINE 2 % (PLAIN) ONE ×2 (12:50→13:24)
[2021-01-26] MEDS ORDERED: DIPRIVAN VIAL 40 ML ONE (13:24)
[2021-01-26] MEDS: HumuLIN R SC PRN (22:10)
[2021-01-27] MEDS: NS 1000 ML 1,000 ML IV SCH ×3 (02:30→16:49)
[2021-01-27] MEDS: CARAFATE PO SCH ×2 (05:29→16:15)
[2021-01-27] MEDS: FLAGYL IV PREMIX 500 MG BAG 500 MG/100 ML BAG IV SCH (05:29)
[2021-01-27 07:22] LABS: BASOPHILS % (AUTO) 0.9 % (0.2-1.0); EOSINOPHILS # (AUTO) 0.1 x10^3/uL (0.0-0.2); EOSINOPHILS % (AUTO) 2.8 % (0.9-2.9); HEMATOCRIT 38.1 % (36.0-47.0); LYMPHOCYTES # (AUTO) 1.7 X10^3/uL (1.3-2.9); LYMPHOCYTES % (AUTO) 40.1 % (21.0-51.0); MEAN CORPUSCULAR HEMOGLOBIN 30.2 pg (27.0-34.0); MEAN CORPUSCULAR HGB CONC 34.1 g/dL (33.0-35.0); MEAN CORPUSCULAR VOLUME 88.4 fL (80.0-100.0); MEAN PLATELET VOLUME 7.9 fL (7.4-11.0); MONOCYTES # (AUTO) 0.8 x10^3/uL (0.3-0.8); MONOCYTES % (AUTO) 18.6 % (0.0-13.0); NEUTROPHILS # (AUTO) 1.6 x10^3/uL (2.2-4.8); NEUTROPHILS % (AUTO) 37.6 % (42.0-75.0); PLATELET COUNT 179 X10^3/uL (150.0-450.0); RED BLOOD COUNT 4.31 X10^6/uL (3.5-5.4); RED CELL DISTRIBUTION WIDTH 13.2 % (11.6-16.5); WHITE BLOOD COUNT 4.2 X10^3/uL (3.6-10.0)
[2021-01-27 07:35] LABS: ALANINE AMINOTRANSFERASE 126 Units/L (12-78); ALBUMIN 3.1 g/dL (3.4-5.0); ALKALINE PHOSPHATASE 61 Units/L (46-116); ASPARTATE AMINO TRANSFERASE 139 Units/L (15-37); BLOOD UREA NITROGEN 8 mg/dL (7-18); CALCIUM 8.6 mg/dL (8.5-10.1); CARBON DIOXIDE 26.4 mmol/L (21-32); CHLORIDE 106 mmol/L (98-107); COR CA(FOR HYPOALB) 9.3 mg/dL (8.5-10.1); COR NA(FOR HYPERGLY) 142 mmol/L (136-145); CREATININE 0.86 mg/dL (0.55-1.02); SODIUM 141 mmol/L (136-145); TOTAL PROTEIN 6.7 g/dL (6.4-8.2); eGFR NON BLACK RACES > 60 (>60)
[2021-01-27] MEDS ORDERED: ZESTRIL TAB 20 MG ONE ×2 (08:48→20:03)
[2021-01-27] MEDS: PEPCID TAB 20 MG PO SCH ×2 (08:50→20:24)
[2021-01-27] MEDS: ZESTRIL TAB 20 MG PO SCH ×2 (08:51→20:24)
[2021-01-27] MEDS: K-DUR TAB 20 MEQ PO PRN (08:51)
[2021-01-27] MEDS: NORVASC TAB 10 MG PO SCH (08:51)
[2021-01-27] MEDS: HYDROCHLOROTHIAZIDE 12.5 MG CAP PO SCH (08:51)
[2021-01-27] MEDS: LOVENOX INJ 40 MG SYR SC SCH (08:52)
[2021-01-27] MEDS: CIPRO IV 400 MG PREMIX* 400 MG/200 ML IV.SOLN. IV SCH ×2 (08:53→20:23)
[2021-01-27] MEDS: MAGIC MOUTHWASH MT SCH ×4 (09:00→21:47)
--- NOTE | 2021-01-27 09:01 | PCM.PROG ---
Progress Note Progress Note for Day of Date of Exam: 01/27/21 Subjective Subjective: PT IS A 65 YEAR OLD FEMALE ADMITTED FOR ACUTE SIGMOID DIVERTICULITIS. SHE REPORTS IMPROVEMENT IN ABDOMINAL PAIN AND NAUSEA. SHE IS EATING BREAKFAST THIS MORNING. SHE HAD EGD YESTERDAY THAT REVEALED Moderate gastritis involving the antrum. Small size hiatal hernia with free reflux without esophagitis. LABS/IMAGING: WBC 4.2, HGB 13, PLT 179, NA 141, K 3.5, CREATININE 0.86, GLUCOSE 133. SHE IS CURRENTLY RECEIVING NORMAL SALINE AT 125ML/HR, FLAGYL 500MG IV Q8H, CIPRO 400MG IV Q12H, LOVENOX 40MG SC DAILY, THE POTASSIUM AND MAGNESIUM PROTOCOLS, ZOFRAN 4MG PO Q6H PRN, PHENERGAN 25MG IV Q6H PRN, MORPHINE 2MG IV Q4H PRN PAIN, AND HER HOME MEDICATIONS. DISCUSSED WITH SURGERY, CAN DISCONTINUE FLAGYL AND ADVANCE DIET. FURTHER EVALUATION OF GALLBLADDER OUTPATIENT ONCE CURRENT INFECTION IS RESOLVED. CONTINUE TO MONITOR AND FOLLOW UP LABS IN THE MORNING. Past Medical Family Social History Past Med/Fam/Surg Hx: No changes since H&P Allergies: Allergies No Known Drug Allergies Allergy (Verified 01/21/21 16:10) Review of Systems ROS: No change since H&P Vital Signs and I&O's Vital Signs: Temperature 98.0 F Pulse Rate [Left Brachial] 76 Respiratory Rate 18 Blood Pressure [Left Arm] 144/80 Blood Pressure [Right Arm] 150/87 Blood Pressure 120/89 O2 Sat by Pulse Oximetry 96 Intake and Output: Intake & Output 01/24/21 01/25/21 01/26/21 01/27/21 23:59 23:59 23:59 23:59 Intake Total 4426 / 4426 5055 / 5055 3410 / 3410 1650 / 1650 Balance 4426 / 4426 5055 / 5055 3410 / 3410 1650 / 1650 Physical Exam Oriented: Normal Eyes: Normal Ear: Normal Nose: Normal Throat: Normal Respiratory: Normal Cardiovascular: Normal : Normal Auscultation: Bowel Sounds: Normal Tenderness: Epigastric and Mild Skin: Normal Musculoskeletal: Normal Psychiatric: Normal Mood Description: Calm and Appropriate Affect: Normal Speech Pattern: Clear and Appropriate Laboratory and Diagnostics Result Diagrams: 01/27/21 07:15 01/27/21 07:15 Labs: 01/22/21 11:36 Stool Stool Culture - Final 01/22/21 11:36 Stool - Final Laboratory WBC 4.2 X10^3/uL (3.6-10.0) 01/27/21 07:15 RBC 4.31 X10^6/uL (3.5-5.4) 01/27/21 07:15 Hgb 13.0 g/dL (12.0-16.0) 01/27/21 07:15 Hct 38.1 % (36.0-47.0) 01/27/21 07:15 MCV 88.4 fL (80.0-100.0) 01/27/21 07:15 MCH 30.2 pg (27.0-34.0) 01/27/21 07:15 MCHC 34.1 g/dL (33.0-35.0) 01/27/21 07:15 RDW 13.2 % (11.6-16.5) 01/27/21 07:15 Plt Count 179 X10^3/uL (150.0-450.0) 01/27/21 07:15 Plt Count Comment Adequate (ADEQUATE) 01/23/21 05:02 MPV 7.9 fL (7.4-11.0) 01/27/21 07:15 Neut % (Auto) 37.6 % (42.0-75.0) L 01/27/21 07:15 Lymph % (Auto) 40.1 % (21.0-51.0) 01/27/21 07:15 [place] % (Auto) 18.6 % (0.0-13.0) H 01/27/21 07:15 Eos % (Auto) 2.8 % (0.9-2.9) 01/27/21 07:15 Baso % (Auto) 0.9 % (0.2-1.0) 01/27/21 07:15 Neut # (Auto) 1.6 x10^3/uL (2.2-4.8) L 01/27/21 07:15 Lymph # (Auto) 1.7 X10^3/uL (1.3-2.9) 01/27/21 07:15 [place] # (Auto) 0.8 x10^3/uL (0.3-0.8) 01/27/21 07:15 Eos # (Auto) 0.1 x10^3/uL (0.0-0.2) 01/27/21 07:15 Baso # (Auto) 0.0 X10^3/uL (0.0-0.1) 01/27/21 07:15 Absolute Nucleated RBC 0.1 /100WBC 01/27/21 07:15 Plt Morphology Comment Normal (NORMAL) 01/23/21 05:02 RBC Morphology Normal (NORMAL) 01/23/21 05:02 Sodium 141 mmol/L (136-145) 01/27/21 07:15 Corrected Sodium 142 mmol/L (136-145) 01/27/21 07:15 Potassium 3.5 mmol/L (3.5-5.1) 01/27/21 07:15 Chloride 106 mmol/L (98-107) 01/27/21 07:15 Carbon Dioxide 26.4 mmol/L (21-32) 01/27/21 07:15 BUN 8 mg/dL (7-18) 01/27/21 07:15 Creatinine 0.86 mg/dL (0.55-1.02) 01/27/21 07:15 Est GFR (MDRD) Af Amer > 60 (>60) 01/27/21 07:15 Est GFR (MDRD) Non-Af > 60 (>60) 01/27/21 07:15 Glucose 133 mg/dL (65-99) H 01/27/21 07:15 POC Glucose (mg/dL) 123 mg/dL (65-99) H 01/27/21 05:14 Calcium 8.6 mg/dL (8.5-10.1) 01/27/21 07:15 Corrected Calcium 9.3 mg/dL (8.5-10.1) 01/27/21 07:15 Magnesium 2.0 mg/dL (1.7-2.9) 01/25/21 05:36 Total Bilirubin 0.30 mg/dL (0.2-1.0) 01/27/21 07:15 AST 139 Units/L (15-37) H 01/27/21 07:15 ALT 126 Units/L (12-78) H 01/27/21 07:15 Alkaline Phosphatase 61 Units/L (46-116) 01/27/21 07:15 Total Protein 6.7 g/dL (6.4-8.2) 01/27/21 07:15 Albumin 3.1 g/dL (3.4-5.0) L 01/27/21 07:15 Globulin 3.6 g/dL (2.5-4.5) 01/27/21 07:15 Albumin/Globulin Ratio 0.9 Ratio (1.1-2.1) L 01/27/21 07:15 Amylase 79 Units/L (25-115) 01/21/21 17:26 Lipase 165 Units/L (73-393) 01/21/21 17:26 Stool Description 10g liquid green 01/22/21 11:36 Stool Description 10g liquid green 01/22/21 11:36 Stl Occult Blood (IFOB) Positive (NEGATIVE) A 01/22/21 11:36 Stool for White Cells Positive (NEGATIVE) A 01/22/21 11:36 Stl C. diff Tox B Gene Negative (NEGATIVE) 01/22/21 11:36 Stl C. diff [id number]-NAP1-BI Presumptive negative (NEGATIVE) 01/22/21 11:36 Cryptosporid parvum Ag Negative (NEGATIVE) 01/22/21 11:36 Giardia lamblia Ag Negative (NEGATIVE) 01/22/21 11:36 Tissue Pathology To follow 01/26/21 14:00 Plan (1) Sigmoid diverticulitis: Status: Acute Plan: IVF, IV antibiotics, diet advance diet as tolerated.
--- NOTE | 2021-01-27 09:53 | DR.PROGNOT ---
Hospital Progress Notes - Progress Note for Day of: Progress Note Date: 01/27/21 - Chief Complaint Chief Complaint: still c/o epigastric and lower abdominal pain ..no vomiting last night or today but still c/o nausea . normal CBC and lytes . BS 160. - Past Medical Family Social History Past Med/Fam/Surg Hx: No changes since H&P Allergies: Allergies No Known Drug Allergies Allergy (Verified 01/21/21 16:10) - Review Of Systems ROS: No change since H&P - Vital Signs Vital Signs: Temperature 98.0 F Pulse Rate [Left Brachial] 76 Respiratory Rate 18 Blood Pressure [Left Arm] 144/80 Blood Pressure [Right Arm] 150/87 Blood Pressure 120/89 O2 Sat by Pulse Oximetry 96 - Physical Exam Oriented: Normal Eyes: Normal Ear: Normal Nose: Normal Throat: Normal Respiratory: Normal Cardiovascular: Normal : Normal GI:Auscultation: Normal GI:Palpation: Normal GI: Tenderness: Epigastric, Mild Skin: Normal Musculoskeletal: Normal Psychiatric: Normal Mood Description: Calm, Appropriate Affect: Normal Speech Pattern: Clear, Appropriate - Laboratory and Diagnostics Result Diagrams: 01/27/21 07:15 01/27/21 07:15 Labs: 01/22/21 11:36 Stool Stool Culture - Final 01/22/21 11:36 Stool - Final Laboratory WBC 4.2 X10^3/uL (3.6-10.0) 01/27/21 07:15 RBC 4.31 X10^6/uL (3.5-5.4) 01/27/21 07:15 Hgb 13.0 g/dL (12.0-16.0) 01/27/21 07:15 Hct 38.1 % (36.0-47.0) 01/27/21 07:15 MCV 88.4 fL (80.0-100.0) 01/27/21 07:15 MCH 30.2 pg (27.0-34.0) 01/27/21 07:15 MCHC 34.1 g/dL (33.0-35.0) 01/27/21 07:15 RDW 13.2 % (11.6-16.5) 01/27/21 07:15 Plt Count 179 X10^3/uL (150.0-450.0) 01/27/21 07:15 Plt Count Comment Adequate (ADEQUATE) 01/23/21 05:02 MPV 7.9 fL (7.4-11.0) 01/27/21 07:15 Neut % (Auto) 37.6 % (42.0-75.0) L 01/27/21 07:15 Lymph % (Auto) 40.1 % (21.0-51.0) 01/27/21 07:15 [place] % (Auto) 18.6 % (0.0-13.0) H 01/27/21 07:15 Eos % (Auto) 2.8 % (0.9-2.9) 01/27/21 07:15 Baso % (Auto) 0.9 % (0.2-1.0) 01/27/21 07:15 Neut # (Auto) 1.6 x10^3/uL (2.2-4.8) L 01/27/21 07:15 Lymph # (Auto) 1.7 X10^3/uL (1.3-2.9) 01/27/21 07:15 [place] # (Auto) 0.8 x10^3/uL (0.3-0.8) 01/27/21 07:15 Eos # (Auto) 0.1 x10^3/uL (0.0-0.2) 01/27/21 07:15 Baso # (Auto) 0.0 X10^3/uL (0.0-0.1) 01/27/21 07:15 Absolute Nucleated RBC 0.1 /100WBC 01/27/21 07:15 Plt Morphology Comment Normal (NORMAL) 01/23/21 05:02 RBC Morphology Normal (NORMAL) 01/23/21 05:02 Sodium 141 mmol/L (136-145) 01/27/21 07:15 Corrected Sodium 142 mmol/L (136-145) 01/27/21 07:15 Potassium 3.5 mmol/L (3.5-5.1) 01/27/21 07:15 Chloride 106 mmol/L (98-107) 01/27/21 07:15 Carbon Dioxide 26.4 mmol/L (21-32) 01/27/21 07:15 BUN 8 mg/dL (7-18) 01/27/21 07:15 Creatinine 0.86 mg/dL (0.55-1.02) 01/27/21 07:15 Est GFR (MDRD) Af Amer > 60 (>60) 01/27/21 07:15 Est GFR (MDRD) Non-Af > 60 (>60) 01/27/21 07:15 Glucose 133 mg/dL (65-99) H 01/27/21 07:15 POC Glucose (mg/dL) 123 mg/dL (65-99) H 01/27/21 05:14 Calcium 8.6 mg/dL (8.5-10.1) 01/27/21 07:15 Corrected Calcium 9.3 mg/dL (8.5-10.1) 01/27/21 07:15 Magnesium 2.0 mg/dL (1.7-2.9) 01/25/21 05:36 Total Bilirubin 0.30 mg/dL (0.2-1.0) 01/27/21 07:15 AST 139 Units/L (15-37) H 01/27/21 07:15 ALT 126 Units/L (12-78) H 01/27/21 07:15 Alkaline Phosphatase 61 Units/L (46-116) 01/27/21 07:15 Total Protein 6.7 g/dL (6.4-8.2) 01/27/21 07:15 Albumin 3.1 g/dL (3.4-5.0) L 01/27/21 07:15 Globulin 3.6 g/dL (2.5-4.5) 01/27/21 07:15 Albumin/Globulin Ratio 0.9 Ratio (1.1-2.1) L 01/27/21 07:15 Amylase 79 Units/L (25-115) 01/21/21 17:26 Lipase 165 Units/L (73-393) 01/21/21 17:26 Stool Description 10g liquid green 01/22/21 11:36 Stool Description 10g liquid green 01/22/21 11:36 Stl Occult Blood (IFOB) Positive (NEGATIVE) A 01/22/21 11:36 Stool for White Cells Positive (NEGATIVE) A 01/22/21 11:36 Stl C. diff Tox B Gene Negative (NEGATIVE) 01/22/21 11:36 Stl C. diff [id number] Presumptive negative (NEGATIVE) 01/22/21 11:36 Cryptosporid parvum Ag Negative (NEGATIVE) 01/22/21 11:36 Giardia lamblia Ag Negative (NEGATIVE) 01/22/21 11:36 Tissue Pathology To follow 01/26/21 14:00 - Assessment and Plan 1: nausea and abdominal pain .. subsiding acute sigmoid diverticulitis .. ischemic ulceration in the ascending colon on recent colonoscopy . on IV ATB , IVF and Lovenox .. to stop IV Flagyl , advance diet , possible d/c in am .... - Problem Patient Problems: Patient Problems Sigmoid diverticulitis (Acute) K57.32
[2021-01-27] MEDS ORDERED: GLUCOPHAGE ONE (20:03)
[2021-01-27] MEDS: GLUCOPHAGE PO SCH (20:24)
[2021-01-27] MEDS: HumuLIN R SC PRN (20:26)
[2021-01-28] MEDS: NS 1000 ML 1,000 ML IV SCH ×2 (02:35→09:08)
[2021-01-28] MEDS: CARAFATE PO SCH (06:02)
[2021-01-28] MEDS ORDERED: GLUCOPHAGE ONE (08:08)
[2021-01-28] MEDS ORDERED: ZESTRIL TAB 20 MG ONE (08:09)
[2021-01-28] MEDS: LOVENOX INJ 40 MG SYR SC SCH (09:04)
[2021-01-28] MEDS: CIPRO IV 400 MG PREMIX* 400 MG/200 ML IV.SOLN. IV SCH (09:04)
[2021-01-28] MEDS: HYDROCHLOROTHIAZIDE 12.5 MG CAP PO SCH (09:05)
[2021-01-28] MEDS: ZESTRIL TAB 20 MG PO SCH (09:05)
[2021-01-28] MEDS: PEPCID TAB 20 MG PO SCH (09:05)
[2021-01-28] MEDS: NORVASC TAB 10 MG PO SCH (09:06)
[2021-01-28] MEDS: GLUCOPHAGE PO SCH (09:06)
[2021-01-28] MEDS: MAGIC MOUTHWASH MT SCH (09:09)
--- NOTE | 2021-01-28 09:13 | W.DIS.FURT ---
Summary of Discharge Discharge Summary of Date Date of Exam: 01/28/21 Admission Date Date of Admission: 01/21/21 Admission Diagnosis Patient Problems (Updated 01/24/21 @ 19:37 by Gaston Christensen) Sigmoid diverticulitis (Acute) K57.32 Hospital Course: PT IS A 65 YEAR OLD FEMALE ADMITTED FOR ACUTE SIGMOID DIVERTICULITIS. HER HOSPITAL/TREATMENT COURSE INCLUDED:NORMAL SALINE AT 125ML/HR, FLAGYL 500MG IV Q8H, CIPRO 400MG IV Q12H, LOVENOX 40MG SC DAILY, THE POTASSIUM AND MAGNESIUM PROTOCOLS, ZOFRAN 4MG PO Q6H PRN, PHENERGAN 25MG IV Q6H PRN, MORPHINE 2MG IV Q4H PRN PAIN, AND HER HOME MEDICATIONS. PT WAS INITIALLY NPO AND DIET GRADUALLY ADVANCED TOLERATED. SHE DID HAVE EGD WHILE INPATIENT THAT REVEALED Moderate gastritis involving the antrum. Small size hiatal hernia with free reflux with out esophagitis. PT ALSO HAD U/S OF GALLBLADDER THAT REVEALED SLUDGE. FURTHER EVALUATION OF GALLBLADDER OUTPATIENT ONCE CURRENT INFECTION IS RESOLVED. PT DISCHARGED IN STABLE CONDITION, COMPLETED ANTIBIOTIC COURSE, INSTRUCTED TO FOLLOW UP WITH PCP AND GENERAL SURGERY. Vital Signs: Vital Signs (72 hours) 01/25/21 09:20 01/25/21 11:44 01/25/21 12:00 Temperature 98.9 F Pulse Rate [Left Brachial] 85 Respiratory Rate 20 20 20 Blood Pressure [Left Arm] 134/80 O2 Sat by Pulse Oximetry 97 01/25/21 12:44 01/25/21 16:00 01/25/21 20:00 Temperature 98.1 F 98.5 F Pulse Rate [Left Brachial] 77 76 Respiratory Rate 20 20 20 Blood Pressure [Left Arm] 132/78 181/84 O2 Sat by Pulse Oximetry 95 98 01/26/21 00:00 01/26/21 04:00 01/26/21 08:00 Temperature 98.8 F 98.9 F 97.9 F Pulse Rate [Left Brachial] 88 78 84 Respiratory Rate 20 18 18 Blood Pressure [Left Arm] 167/84 141/80 169/77 O2 Sat by Pulse Oximetry 98 97 98 01/26/21 12:00 01/26/21 14:05 01/26/21 14:20 Temperature 98.2 F 99.3 F 99.0 F Pulse Rate [Left Brachial] 70 76 75 Respiratory Rate 18 18 18 Blood Pressure [Left Arm] 158/77 128/69 119/76 O2 Sat by Pulse Oximetry 99 93 L 95 01/26/21 14:35 01/26/21 14:50 01/26/21 15:05 Temperature 99.3 F 99.4 F Pulse Rate [Left Brachial] 70 63 68 Respiratory Rate 18 18 18 Blood Pressure [Left Arm] 139/71 139/71 152/87 O2 Sat by Pulse Oximetry 96 94 L 94 L 01/26/21 16:00 01/26/21 20:00 01/27/21 00:00 Temperature 99.0 F 99.0 F 99.1 F Pulse Rate [Left Brachial] 64 77 83 Respiratory Rate 18 18 20 Blood Pressure [Left Arm] 156/87 135/67 147/77 O2 Sat by Pulse Oximetry 93 L 94 L 94 L 01/27/21 03:55 01/27/21 08:00 01/27/21 11:44 Temperature 98.1 F 98.0 F 97.9 F Pulse Rate [Left Brachial] 66 76 71 Respiratory Rate 18 18 18 Blood Pressure [Left Arm] 124/68 144/80 164/78 O2 Sat by Pulse Oximetry 95 96 97 01/27/21 16:00 01/27/21 20:00 01/27/21 23:23 Temperature 97.4 F L 98.7 F 97.9 F Pulse Rate [Left Brachial] 74 76 67 Respiratory Rate 19 18 18 Blood Pressure [Left Arm] 137/71 144/76 133/77 O2 Sat by Pulse Oximetry 95 93 L 95 01/28/21 04:00 01/28/21 07:59 Temperature 98.3 F 97.8 F Pulse Rate [Left Brachial] 77 73 Respiratory Rate 20 18 Blood Pressure [Left Arm] 166/76 168/79 O2 Sat by Pulse Oximetry 96 94 L Labs: Laboratory Last Values WBC 4.2 X10^3/uL (3.6-10.0) 01/27/21 07:15 RBC 4.31 X10^6/uL (3.5-5.4) 01/27/21 07:15 Hgb 13.0 g/dL (12.0-16.0) 01/27/21 07:15 Hct 38.1 % (36.0-47.0) 01/27/21 07:15 MCV 88.4 fL (80.0-100.0) 01/27/21 07:15 MCH 30.2 pg (27.0-34.0) 01/27/21 07:15 MCHC 34.1 g/dL (33.0-35.0) 01/27/21 07:15 RDW 13.2 % (11.6-16.5) 01/27/21 07:15 Plt Count 179 X10^3/uL (150.0-450.0) 01/27/21 07:15 Plt Count Comment Adequate (ADEQUATE) 01/23/21 05:02 MPV 7.9 fL (7.4-11.0) 01/27/21 07:15 Neut % (Auto) 37.6 % (42.0-75.0) L 01/27/21 07:15 Lymph % (Auto) 40.1 % (21.0-51.0) 01/27/21 07:15 Mcduffie % (Auto) 18.6 % (0.0-13.0) H 01/27/21 07:15 Eos % (Auto) 2.8 % (0.9-2.9) 01/27/21 07:15 Baso % (Auto) 0.9 % (0.2-1.0) 01/27/21 07:15 Neut # (Auto) 1.6 x10^3/uL (2.2-4.8) L 01/27/21 07:15 Lymph # (Auto) 1.7 X10^3/uL (1.3-2.9) 01/27/21 07:15 Mcduffie # (Auto) 0.8 x10^3/uL (0.3-0.8) 01/27/21 07:15 Eos # (Auto) 0.1 x10^3/uL (0.0-0.2) 01/27/21 07:15 Baso # (Auto) 0.0 X10^3/uL (0.0-0.1) 01/27/21 07:15 Absolute Nucleated RBC 0.1 /100WBC 01/27/21 07:15 Plt Morphology Comment Normal (NORMAL) 01/23/21 05:02 RBC Morphology Normal (NORMAL) 01/23/21 05:02 Sodium 141 mmol/L (136-145) 01/27/21 07:15 Corrected Sodium 142 mmol/L (136-145) 01/27/21 07:15 Potassium 3.5 mmol/L (3.5-5.1) 01/27/21 07:15 Chloride 106 mmol/L (98-107) 01/27/21 07:15 Carbon Dioxide 26.4 mmol/L (21-32) 01/27/21 07:15 BUN 8 mg/dL (7-18) 01/27/21 07:15 Creatinine 0.86 mg/dL (0.55-1.02) 01/27/21 07:15 Est GFR (MDRD) Af Amer > 60 (>60) 01/27/21 07:15 Est GFR (MDRD) Non-Af > 60 (>60) 01/27/21 07:15 Glucose 133 mg/dL (65-99) H 01/27/21 07:15 POC Glucose (mg/dL) 139 mg/dL (65-99) H 01/28/21 05:32 Calcium 8.6 mg/dL (8.5-10.1) 01/27/21 07:15 Corrected Calcium 9.3 mg/dL (8.5-10.1) 01/27/21 07:15 Magnesium 2.0 mg/dL (1.7-2.9) 01/25/21 05:36 Total Bilirubin 0.30 mg/dL (0.2-1.0) 01/27/21 07:15 AST 139 Units/L (15-37) H 01/27/21 07:15 ALT 126 Units/L (12-78) H 01/27/21 07:15 Alkaline Phosphatase 61 Units/L (46-116) 01/27/21 07:15 Total Protein 6.7 g/dL (6.4-8.2) 01/27/21 07:15 Albumin 3.1 g/dL (3.4-5.0) L 01/27/21 07:15 Globulin 3.6 g/dL (2.5-4.5) 01/27/21 07:15 Albumin/Globulin Ratio 0.9 Ratio (1.1-2.1) L 01/27/21 07:15 Amylase 79 Units/L (25-115) 01/21/21 17:26 Lipase 165 Units/L (73-393) 01/21/21 17:26 Stool Description 10g liquid green 01/22/21 11:36 Stool Description 10g liquid green 01/22/21 11:36 Stl Occult Blood (IFOB) Positive (NEGATIVE) A 01/22/21 11:36 Stool for White Cells Positive (NEGATIVE) A 01/22/21 11:36 Stl C. diff Tox B Gene Negative (NEGATIVE) 01/22/21 11:36 Stl C. diff [id number] Presumptive negative (NEGATIVE) 01/22/21 11:36 Cryptosporid parvum Ag Negative (NEGATIVE) 01/22/21 11:36 Giardia lamblia Ag Negative (NEGATIVE) 01/22/21 11:36 Tissue Pathology To follow 01/26/21 14:00 Reason For Visit: DIVERTICULITIS,COLON ULCERATION Discharge Date Discharge Date: 01/28/21 Discharge Diagnosis All Active Problems (Updated 01/24/21 @ 19:37 by Gaston Christensen) Left wrist pain (Acute) Right sided weakness (Acute) Chest pain (Acute) Hypertension (Chronic) Diabetes mellitus (Chronic) History of CVA (cerebrovascular accident) (Chronic) Hyperlipidemia (Chronic) History of diverticulosis (Chronic) Arthritis (Chronic) Osteoarthritis (Acute) Left cervical lymphadenopathy (Acute) Acute bronchitis (Acute) Chest pain, rule out acute myocardial infarction (Acute) Syncope (Acute) Shingles (Acute) GERD (gastroesophageal reflux disease) (Acute) Hypertension (Acute) Sensation of heaviness (Acute) Lower extremity pain, left (Acute) Viral syndrome (Acute) COVID-19 (Acute) Hypertensive emergency (Acute) Headache (Acute) Chest pain (Acute) Hypertensive emergency (Acute) Hypertension, uncontrolled (Acute) Acute pain of both ears (Acute) Sigmoid diverticulitis (Acute) Plan of Treatment: Continue with present treatment and follow up plan. Pt is to keep follow up appointment as instructed and take medications as ordered. Discharge Medications Discharge Medications: No Known Drug Allergies Allergy (Verified 01/21/21 16:10) CONTINUE taking the following medications muzhkdtiej-urlbxekqzypmg-ewqo 1 cap PO TID PRN 01/21/21 [History] meclizine 25 mg PO TID PRN 01/21/21 [History] naproxen 500 mg PO BID PRN 01/21/21 [History] New Prescriptions ondansetron HCl [Zofran] 4 mg PO Q6HR PRN 10 Days #20 tab 01/28/21 [Rx] pantoprazole 40 mg PO QAM 30 Days #30 tab 01/28/21 [Rx] sucralfate 1 g PO BID 30 Days #60 tab 01/28/21 [Rx] Follow up and Referral Follow Up: 1 Week Discharge Disposition Discharge Disposition: Home Discharge Condition: Stable Discharge Plan Discharge Plan Hospital Course: PT IS A 65 YEAR OLD FEMALE ADMITTED FOR ACUTE SIGMOID DIVERTICULITIS. HER HOSPITAL/TREATMENT COURSE INCLUDED:NORMAL SALINE AT 125ML/HR, FLAGYL 500MG IV Q8H, CIPRO 400MG IV Q12H, LOVENOX 40MG SC DAILY, THE POTASSIUM AND MAGNESIUM PROTOCOLS, ZOFRAN 4MG PO Q6H PRN, PHENERGAN 25MG IV Q6H PRN, MORPHINE 2MG IV Q4H PRN PAIN, AND HER HOME MEDICATIONS. PT WAS INITIALLY NPO AND DIET GRADUALLY ADVANCED TOLERATED. SHE DID HAVE EGD WHILE INPATIENT THAT REVEALED Moderate gastritis involving the antrum. Small size hiatal hernia with free reflux without esophagitis. PT ALSO HAD U/S OF GALLBLADDER THAT REVEALED SLUDGE. FURTHER EVALUATION OF GALLBLADDER OUTPATIENT ONCE CURRENT INFECTION IS RESOLVED. PT DISCHARGED IN STABLE CONDITION, COMPLETED ANTIBIOTIC COURSE, INSTRUCTED TO FOLLOW UP WITH PCP AND GENERAL SURGERY. Patient Disposition: 01 HOME, SELF-CARE Condition: Stable Health Concerns: Post Hospitalization: new medications and changes needed to prevent readmission or further decline. Pt educated and given instructions on all concerns. Care Plan Goals: Problem: Infection Goal: Temperature within normal limits. Resolved infection. Instructions: Follow provided instructions. Follow up with primary physician as directed. Contact primary care physician or report to the closest Emergency Room if condition worsens. Plan of Treatment: Continue with present treatment and follow up plan. Pt is to keep follow up appointment as instructed and take medications as ordered. Prescriptions: New pantoprazole 40 mg tablet,delayed release (DR/EC) 40 mg PO QAM 30 Days Qty: 30 RF: 0 Continued famotidine 20 mg tablet 20 mg PO BID RF: 0 amlodipine 10 mg tablet 10 mg PO DAILY RF: 0 lisinopril-hydrochlorothiazide 20-12.5 mg tablet 1 tab PO DAILY RF: 0 metformin 500 mg tablet 500 mg PO BID RF: 0 hydrocodone-acetaminophen 5-325 mg Tablet 1 tab PO BID PRN (Reason: Pain) RF: 0 Linzess 145 mcg Capsule 145 mcg PO QAM RF: 0 insulin asp prt-insulin aspart [Novolog Mix 70-30FlexPen U-100] 100 unit/mL (70-30) Insulin Pen 18 unit SUBCUT BID RF: 0 meclizine 25 mg Tablet 25 mg PO TID PRNRF: 0 naproxen 500 mg tablet,delayed release (DR/EC) 500 mg PO BID PRNRF: 0 znbpbnqdem-mscqdasccvofi-vded 50-300-40 mg Capsule 1 cap PO TID PRNRF: 0 sucralfate 1 gram Tablet 1 g PO BID 30 Days Qty: 60 RF: 0 ondansetron HCl [Zofran] 4 mg Tablet 4 mg PO Q6HR PRN (Reason: Nausea) 10 Days Qty: 20 RF: 0 Follow ups/Referrals Follow ups/Referrals: Nathanael Aldrich [Primary Care Provider] - 02/03/21 1:00 pm CHRISTINA ALFARO [STAFF PHYSICIAN] - 02/11/21 1:00 pm Instructions Instructions: Diverticulitis, Npyp-he-Sbhh, Hypertension, Qjot-of-Njll, Esophagogastroduodenoscopy, Care After, Diabetes Mellitus and Nutrition Stand Alone Forms: Excuse From Work or School, Precautions for COVID19, Patient Portal, Social Distancing
[2021-01-28 12:47] VITALS: BP 183/84
== END 2021-01-28 13:30 | disposition home or self-care (01) | DRG 392 ==
LOC: MED/SURG → OBSVTOIN 15:53
PROVIDERS: ADMIT Family Medicine; ATTEND Family Medicine

== ENCOUNTER 2024-12-16 11:49 | Observation (INO) ==
[2024-12-16 11:55] VITALS: BMI 27.4
--- NOTE | 2024-12-16 12:27 | ED.ABDFE ---
HPI Time Seen Time Seen by Provider: 12/16/24 12:27 PCP Primary Care Physician: lauryn HPI Comment HPI Comment: History as below. Complaint Doctors Chief Complaint Comments: Patient is 69yr old female in ER with abdominal pain and cramping around umbilicus since yesterday. Patient was seen at this ER Monday for nausea, vomiting and diarrhea Chief Complaint:: Patient c/o of cramping in her naval area since yesterday evening she was seen here monday for nausea/vomiting/diarrhea she states the diarrhea continues but states it is getting better. No nausea/vomiting. Self Treatment fo Chief Complaint: pepcid COVID-19 Coronavirus risk:travel/contact w/high risk person: No Has patient experienced Coronavirus symptoms: No Reviewed Nurses Notes Review: Yes Source History Provided: Patient Mode of arrival Mode of Arrival: Ambulatory Timing Onset of Chief Complaint: 12/15/24 PMH PMH Past Medical History: Yes Past Medical History: Coronary Artery Disease, Diabetes, Dyslipidemia, GERD, Hypertension and PUD Past Surgical History: Yes Surgical History: Angioplasty/Stents, Appendectomy, Cholecystectomy and Hysterectomy Family History History of Family Medical Conditions: Yes Family Medical History: Hypertension Social History Does patient currently use any type of tobacco product: No Have you used tobacco products in the last 12 months: No Type of Tobacco Use: None Does any household member use tobacco: No Alcohol Use: None Do you use any recreational Drugs:: No Lives Where: Home Travel Risk Coronavirus risk:travel/contact w/high risk person: No Has patient experienced Coronavirus symptoms: No Infectious screening In the last 2 months have you had wt loss of >10#?: NO Have you had fever, night sweats or hemotysis?: No Have you traveled outside the country in the last 6 months?: No Isolation: Standard ROS Review of Systems Constitutional: No Symptoms Reported Eyes: No Symptoms Reported ENTM: No Symptoms Reported Respiratoy: No Symptoms Reported Cardiovascular: No Symptoms Reported Gastrointestinal/Abdominal: No Symptoms Reported Genitourinary: No Symptoms Reported Neurological: No Symptoms Reported Musculoskeletal: No Symptoms Reported Integumentary: No Symptoms Reported Hematologic/Lymphatic: No Symptoms Reported Endocrine: No Symptoms Reported Psychiatric: No Symptoms Reported All Other Systems: Reviewed and Negative PE Vital Signs Vitals: Vital Signs Temperature 98.2 F Pulse Rate 73 Respiratory Rate 18 Respiratory Rate 14 Blood Pressure 145/72 O2 Sat by Pulse Oximetry 97 General Limitations: No Limitations General Appearance: Alert and In No Apparent Distress Head Head Exam: Normal Inspection and Atraumatic Eyes Eye exam: Normal Appearance and PERRL; negative Scleral Icterus or Conjunctival Injection ENT ENT Exam: Normal Exam, Normal Oropharynx, Normal External Ear Exam and TM's Normal Bilaterally Neck Neck Exam: Normal Inspection and Trachea Midline; negative Tenderness Chest Chest Inspection: Normal Inspection and Symmetric Chest Wall Rise; negative Tenderness Respiratory Respiratory Exam: Normal Lung Sounds Bilat; negative Accessory Muscle Use, Chest Wall Tenderness or Respiratory Distress Cardiovascular Cardiovascular Exam: Regular Rate, Normal Rhythm and Normal Heart Sounds; negative Systolic Murmur or Diastolic Murmur Abdominal Exam Abdominal Exam: Normal Inspection, Normal Bowel Sounds and Soft; negative Tenderness Abdominal Tenderness: Diffuse and Moderate Rectal Rectal Exam: Deferred Back Back Exam: Normal Inspection; negative (R) CVA Tenderness or (L) CVA Tenderness Extremeties Extremities Exam: Normal Inspection and Tenderness; negative Normal Capillary Refill External Exam: Female: Deferred : Speculum Exam (Female): Deferred : Bimanual Exam (female): Deferred Neurologic Neurological Exam: Alert and Oriented X3; negative Motor Sensory Deficit Psychiatric Psychiatric Exam: Normal Affect and Normal Mood Skin Skin Exam: Warm and Intact ROR Labs Reviewed Laboratory Results Reviewed?: Yes 12/16/24 12:40 12/16/24 12:40 Laboratory: WBC 4.8 X10^3/uL (3.6-10.0) 12/16/24 12:40 RBC 4.40 X10^6/uL (3.5-5.4) 12/16/24 12:40 Hgb 13.2 g/dL (12.0-16.0) 12/16/24 12:40 Hct 39.2 % (36.0-47.0) 12/16/24 12:40 MCV 89.2 fL (80.0-100.0) 12/16/24 12:40 MCH 29.9 pg (27.0-34.0) 12/16/24 12:40 MCHC 33.5 g/dL (33.0-35.0) 12/16/24 12:40 RDW 14.2 % (11.6-16.5) 12/16/24 12:40 Plt Count 182 X10^3/uL (150.0-450.0) 12/16/24 12:40 MPV 8.2 fL (7.4-11.0) 12/16/24 12:40 Neut % (Auto) 50.4 % (42.0-75.0) 12/16/24 12:40 Lymph % (Auto) 36.9 % (21.0-51.0) 12/16/24 12:40 Spencer % (Auto) 10.2 % (0.0-13.0) 12/16/24 12:40 Eos % (Auto) 2.0 % (0.9-2.9) 12/16/24 12:40 Baso % (Auto) 0.5 % (0.2-1.0) 12/16/24 12:40 Neut # (Auto) 2.4 x10^3/uL (2.2-4.8) 12/16/24 12:40 Lymph # (Auto) 1.8 X10^3/uL (1.3-2.9) 12/16/24 12:40 Spencer # (Auto) 0.5 x10^3/uL (0.3-0.8) 12/16/24 12:40 Eos # (Auto) 0.1 x10^3/uL (0.0-0.2) 12/16/24 12:40 Baso # (Auto) 0.0 X10^3/uL (0.0-0.1) 12/16/24 12:40 Absolute Nucleated RBC 0.1 /100WBC 12/16/24 12:40 Sodium 145 mmol/L (136-145) 12/16/24 12:40 Corrected Sodium TNP 12/16/24 12:40 Potassium 4.0 mmol/L (3.5-5.1) 12/16/24 12:40 Chloride 107 mmol/L (98-107) 12/16/24 12:40 Carbon Dioxide 28.5 mmol/L (21-32) 12/16/24 12:40 BUN 14 mg/dL (7-18) 12/16/24 12:40 Creatinine 0.83 mg/dL (0.55-1.02) 12/16/24 12:40 Est GFR (MDRD) Af Amer > 60 (>60) 12/16/24 12:40 Est GFR (MDRD) Non-Af > 60 (>60) 12/16/24 12:40 Glucose 109 mg/dL (65-99) H 12/16/24 12:40 Calcium 9.8 mg/dL (8.5-10.1) 12/16/24 12:40 Corrected Calcium TNP 12/16/24 12:40 Total Bilirubin 0.70 mg/dL (0.2-1.0) 12/16/24 12:40 AST 20 Units/L (15-37) 12/16/24 12:40 ALT 22 Units/L (12-78) 12/16/24 12:40 Alkaline Phosphatase 75 Units/L (46-116) 12/16/24 12:40 B-Natriuretic Peptide 28.7 pg/mL (0-79) 12/16/24 12:40 Total Protein 7.6 g/dL (6.4-8.2) 12/16/24 12:40 Albumin 3.9 g/dL (3.4-5.0) 12/16/24 12:40 Globulin 3.7 g/dL (2.5-4.5) 12/16/24 12:40 Albumin/Globulin Ratio 1.1 Ratio (1.1-2.1) 12/16/24 12:40 Amylase 121 Units/L (25-115) H 12/16/24 12:40 Lipase 61 Units/L (16-77) 12/16/24 12:40 Opioid Opioid Risk Tool Age (Denny box if 16-45): No History of Preadolescent Sexual Abuse: No Total: 0 Total Score Risk Category: Low Risk Copyright: Jonah NIETO predicting aberrant behaviors Discharge Plan Diagnosis Discharge Problem: Periumbilical abdominal pain, Elevated amylase Umbilical hernia Qualifiers: Obstruction and gangrene presence: without obstruction or gangrene Qualified Code(s): K42.9 - Umbilical hernia without obstruction or gangrene Discharge Plan Patient Disposition: HOME, SELF-CARE Condition: Stable Prescriptions: No Action (DME) OneTouch Verio test strips Strip See Rx Instructions .Route Qty: 100 0RF Rx Instructions: As directed insulin asp prt-insulin aspart [Novolog Mix 70-30FlexPen U-100] 100 unit/mL (70-30) insulin pen 15 unit SUBCUT BID 90 Days Qty: 30 1RF Rx Instructions: take 15 units before breakfast and 15 units before supper metformin 500 mg tablet 500 mg PO BID 90 Days Qty: 180 1RF potassium chloride 10 mEq tablet extended release 10 meq PO QDAY 90 Days Qty: 90 1RF atorvastatin [Lipitor] 40 mg tablet 40 mg PO QHS Qty: 90 1RF Linzess 72 mcg capsule 72 mcg PO QAM 90 Days Qty: 90 1RF cholecalciferol (vitamin D3) 1,250 mcg (50,000 unit) capsule 1,250 mcg PO QWEEK 180 Days Qty: 26 1RF aspirin 81 mg tablet,delayed release (DR/EC) 81 mg PO QDAY furosemide [Lasix] 40 mg tablet 40 mg PO QAM Qty: 90 3RF amlodipine 10 mg tablet 10 mg PO DAILY 90 Days Qty: 90 1RF Health Concerns: Post Hospitalization: new medications and changes needed to prevent readmission or further decline. Pt educated and given instructions on all concerns. Plan of Treatment: Continue with present treatment and follow up plan. Pt is to keep follow up appointment as instructed and take medications as ordered. Orders to Discharge Patient Discharge Orders: Transfer (Routine); Ordered 12/16/24 Ordered By: BIBI LENZ Follow ups/Referrals Follow ups/Referrals: Nathanael Aldrich MD [Primary Care Provider] - 3 days Instructions Stand Alone Forms: Find Help Web Site, Post Hospital Follow Up Care
[2024-12-16 12:48] LABS: BASOPHILS % (AUTO) 0.5 % (0.2-1.0); EOSINOPHILS # (AUTO) 0.1 x10^3/uL (0.0-0.2); HEMATOCRIT 39.2 % (36.0-47.0); HEMOGLOBIN 13.2 g/dL (12.0-16.0); LYMPHOCYTES # (AUTO) 1.8 X10^3/uL (1.3-2.9); LYMPHOCYTES % (AUTO) 36.9 % (21.0-51.0); MEAN CORPUSCULAR HEMOGLOBIN 29.9 pg (27.0-34.0); MEAN CORPUSCULAR HGB CONC 33.5 g/dL (33.0-35.0); MEAN CORPUSCULAR VOLUME 89.2 fL (80.0-100.0); MEAN PLATELET VOLUME 8.2 fL (7.4-11.0); MONOCYTES # (AUTO) 0.5 x10^3/uL (0.3-0.8); MONOCYTES % (AUTO) 10.2 % (0.0-13.0); NEUTROPHILS # (AUTO) 2.4 x10^3/uL (2.2-4.8); NEUTROPHILS % (AUTO) 50.4 % (42.0-75.0); PLATELET COUNT 182 X10^3/uL (150.0-450.0); RED CELL DISTRIBUTION WIDTH 14.2 % (11.6-16.5); WHITE BLOOD COUNT 4.8 X10^3/uL (3.6-10.0)
[2024-12-16 12:59] LABS: ALANINE AMINOTRANSFERASE 22 Units/L (12-78); ALBUMIN 3.9 g/dL (3.4-5.0); ALKALINE PHOSPHATASE 75 Units/L (46-116); AMYLASE 121 Units/L (25-115); ASPARTATE AMINO TRANSFERASE 20 Units/L (15-37); BLOOD UREA NITROGEN 14 mg/dL (7-18); CALCIUM 9.8 mg/dL (8.5-10.1); CARBON DIOXIDE 28.5 mmol/L (21-32); CHLORIDE 107 mmol/L (98-107); CREATININE 0.83 mg/dL (0.55-1.02); GLUCOSE 109 mg/dL (65-99); LIPASE 61 Units/L (16-77); SODIUM 145 mmol/L (136-145); TOTAL PROTEIN 7.6 g/dL (6.4-8.2); eGFR NON BLACK RACES > 60 (>60)
[2024-12-16] MEDS: NS 1,000 ML IV 1,000 ML IV SCH (13:28)
[2024-12-16] MEDS: DEMEROL INJ IVP ONE (13:28)
[2024-12-16] MEDS: ZOFRAN INJ 4 MG VIAL IVP ONE (13:28)
--- NOTE | 2024-12-16 13:53 | CT ---
EXAM:CT ABDOMEN AND PELVIS WITHOUT CONTRASTHISTORY:Patient c/o of cramping in her naval area since yesterday evening with nausea/vomiting/diarrhea; [phone] [facility]COMPAR[facility]August 14, 2022.TECHNIQUE:Axial CT images were obtained through the abdomen and pelvis without contrast. Coronal reformatted images were included.All CT scans at this facility use dose modulation, iterative reconstruction, and/or weight based dosing when appropriate to reduce radiation dose to as low as reasonably achievable.FINDINGS:Please note that without the use of intravenous contrast, evaluation of organ parenchyma is limited.LOWER THORAX: NormalABDOMEN:LIVER: NormalGALLBLADDER: AbsentSPLEEN: NormalPANCREAS: NormalKIDNEYS: 6.3 cm left renal cysts.ADRENAL GLANDS: NormalGI TRACT: Appendectomy changes noted. No evidence of bowel obstruction.LYMPH NODES: No enlarged nodesVESSELS: Mild atherosclerosis. Iliac vein stents are noted bilaterally.PERITONEUM / RETROPERITONEUM: Fat containing umbilical hernia.PELVIS:BLADDER: NormalGENITALS: HysterectomyBONES: Degenerative changes noted within the lumbar spine and pelvis. No suspicious lytic or blastic lesionsIMPRESSION:Postop changes of cholecystectomy and appendectomy.Fat containing umbilical hernia.Bilaterally at vein stents noted.THIS IS AN ELECTRONICALLY VERIFIED FINAL REPORT12/16/2024 1:43 PM - Electronically signed by Kemal Contreras MD
[2024-12-16] MEDS ORDERED: MORPHINE SULFATE INJ 2 MG INJ IVP PRN (16:06)
[2024-12-16] MEDS ORDERED: ZOFRAN INJ 4 MG VIAL IVP PRN (16:06)
[2024-12-16] MEDS: NORVASC TAB 10 MG PO SCH (16:48)
[2024-12-16] MEDS: SNACK - Diabetic Appropriate PO SCH (20:15)
[2024-12-16] MEDS: CATAPRES TAB 0.1 MG PO SCH (20:37)
[2024-12-16] MEDS: LIPITOR TAB 40 MG PO SCH (20:38)
[2024-12-16 21:13] LABS: BILIRUBIN,URINE NEGATIVE (NEGATIVE); BLOOD/HEMOGLOBIN,URINE NEGATIVE (NEGATIVE); GLUCOSE, URINE NEGATIVE (NEGATIVE); KETONES,URINE NEGATIVE (NEGATIVE); LEUKOCYTE ESTERASE ,URINE NEGATIVE (NEGATIVE); NITRITES,URINE NEGATIVE (NEGATIVE); PROTEIN,URINE 1+ (NEGATIVE); UROBILINOGEN,URINE NORMAL (NORMAL)
[2024-12-16 21:21] LABS: APPEARANCE,URINE CLEAR (CLEAR); BACTERIA,URINE NEGATIVE /HPF (NEGATIVE); COLOR,URINE STRAW (YELLOW); RBC,URINE NONE SEEN /HPF (0-3); SQUAMOUS EPITHELIAL CELL,UR RARE /HPF (NEGATIVE)
[2024-12-17 06:33] LABS: BASOPHILS % (AUTO) 0.3 % (0.2-1.0); EOSINOPHILS # (AUTO) 0.1 x10^3/uL (0.0-0.2); EOSINOPHILS % (AUTO) 2.3 % (0.9-2.9); HEMATOCRIT 39.5 % (36.0-47.0); HEMOGLOBIN 13.3 g/dL (12.0-16.0); LYMPHOCYTES # (AUTO) 2.4 X10^3/uL (1.3-2.9); LYMPHOCYTES % (AUTO) 43.7 % (21.0-51.0); MEAN CORPUSCULAR HEMOGLOBIN 30.1 pg (27.0-34.0); MEAN CORPUSCULAR HGB CONC 33.6 g/dL (33.0-35.0); MEAN CORPUSCULAR VOLUME 89.4 fL (80.0-100.0); MEAN PLATELET VOLUME 8.9 fL (7.4-11.0); MONOCYTES # (AUTO) 0.6 x10^3/uL (0.3-0.8); MONOCYTES % (AUTO) 11.5 % (0.0-13.0); NEUTROPHILS # (AUTO) 2.3 x10^3/uL (2.2-4.8); NEUTROPHILS % (AUTO) 42.2 % (42.0-75.0); PLATELET COUNT 144 X10^3/uL (150.0-450.0); RED BLOOD COUNT 4.41 X10^6/uL (3.5-5.4); RED CELL DISTRIBUTION WIDTH 13.8 % (11.6-16.5)
[2024-12-17 06:57] LABS: ALANINE AMINOTRANSFERASE 19 Units/L (12-78); ALBUMIN 3.5 g/dL (3.4-5.0); ALKALINE PHOSPHATASE 69 Units/L (46-116); AMYLASE 99 Units/L (25-115); ASPARTATE AMINO TRANSFERASE 20 Units/L (15-37); BLOOD UREA NITROGEN 11 mg/dL (7-18); CALCIUM 9.3 mg/dL (8.5-10.1); CARBON DIOXIDE 26.6 mmol/L (21-32); CHLORIDE 105 mmol/L (98-107); COR NA(FOR HYPERGLY) 141 mmol/L (136-145); CREATININE 0.63 mg/dL (0.55-1.02); GLUCOSE 112 mg/dL (65-99); LIPASE 36 Units/L (16-77); POTASSIUM 3.7 mmol/L (3.5-5.1); SODIUM 141 mmol/L (136-145); eGFR NON BLACK RACES > 60 (>60)
[2024-12-17 07:11] LABS: PLATELET MORPHOLOGY COMMENT NORMAL (NORMAL); WHITE BLOOD COUNT 5.5 X10^3/uL (3.6-10.0)
[2024-12-17] MEDS ORDERED: CONSULT PHARMACY - POTASSIUM & MAGNESIUM XX SCH ×2 (08:00→09:00)
--- NOTE | 2024-12-17 08:11 | DR.PROGNOT ---
HOSPITAL PROGRESS NOTE Progress Note for Day of: Progress Note Date: 12/17/24 Chief Complaint Chief Complaint: Abdominal pain is less today, no nausea or vomiting. CBC, BUN creatinine, liver function test were normal. Patient is afebrile and stable vital signs. Abdomen is soft and flat with localized tenderness around the umbilicus, bowel sounds present Past Medical Family Social History Allergies: Allergies alcohol Allergy (Unknown, Verified 12/16/24 11:57) Reason: Drug allergy hydralazine Allergy (Verified 12/16/24 11:57) shellfish derived Allergy (Verified 12/16/24 11:57) Gabapentin Adverse Reaction (Intermediate, Uncoded 12/16/24 11:57) Vital Signs Vital Signs: Vital Signs Temperature 98.2 F Pulse Rate [Brachial] 63 Respiratory Rate 20 Blood Pressure [Left Arm] 129/62 O2 Sat by Pulse Oximetry 98 Physical Exam Oriented: Normal Eyes: Normal Ear: Normal Nose: Normal Throat: Normal Respiratory: Normal Cardiovascular: Normal GI:Auscultation: Normal GI:Palpation: Normal GI: Tenderness: Periumbilical and Other (Moderate to severe umbilical tenderness, no skin changes or cellulitis.) Speech Pattern: Clear Laboratory and Diagnostics 12/17/24 05:17 12/17/24 05:17 Labs: Laboratory WBC 5.5 X10^3/uL (3.6-10.0) 12/17/24 05:17 RBC 4.41 X10^6/uL (3.5-5.4) 12/17/24 05:17 Hgb 13.3 g/dL (12.0-16.0) 12/17/24 05:17 Hct 39.5 % (36.0-47.0) 12/17/24 05:17 MCV 89.4 fL (80.0-100.0) 12/17/24 05:17 MCH 30.1 pg (27.0-34.0) 12/17/24 05:17 MCHC 33.6 g/dL (33.0-35.0) 12/17/24 05:17 RDW 13.8 % (11.6-16.5) 12/17/24 05:17 Plt Count 144 X10^3/uL (150.0-450.0) L 12/17/24 05:17 Plt Count Comment Decreased (ADEQUATE) A 12/17/24 05:17 MPV 8.9 fL (7.4-11.0) 12/17/24 05:17 Neut % (Auto) 42.2 % (42.0-75.0) 12/17/24 05:17 Lymph % (Auto) 43.7 % (21.0-51.0) 12/17/24 05:17 [place] % (Auto) 11.5 % (0.0-13.0) 12/17/24 05:17 Eos % (Auto) 2.3 % (0.9-2.9) 12/17/24 05:17 Baso % (Auto) 0.3 % (0.2-1.0) 12/17/24 05:17 Neut # (Auto) 2.3 x10^3/uL (2.2-4.8) 12/17/24 05:17 Lymph # (Auto) 2.4 X10^3/uL (1.3-2.9) 12/17/24 05:17 [place] # (Auto) 0.6 x10^3/uL (0.3-0.8) 12/17/24 05:17 Eos # (Auto) 0.1 x10^3/uL (0.0-0.2) 12/17/24 05:17 Baso # (Auto) 0.0 X10^3/uL (0.0-0.1) 12/17/24 05:17 Absolute Nucleated RBC 0.2 /100WBC 12/17/24 05:17 Plt Clumps, EDTA Few 12/17/24 05:17 Plt Morphology Comment Normal (NORMAL) 12/17/24 05:17 RBC Morphology Normal (NORMAL) 12/17/24 05:17 Sodium 141 mmol/L (136-145) 12/17/24 05:17 Corrected Sodium 141 mmol/L (136-145) 12/17/24 05:17 Potassium 3.7 mmol/L (3.5-5.1) 12/17/24 05:17 Chloride 105 mmol/L (98-107) 12/17/24 05:17 Carbon Dioxide 26.6 mmol/L (21-32) 12/17/24 05:17 BUN 11 mg/dL (7-18) 12/17/24 05:17 Creatinine 0.63 mg/dL (0.55-1.02) 12/17/24 05:17 Est GFR (MDRD) Af Amer > 60 (>60) 12/17/24 05:17 Est GFR (MDRD) Non-Af > 60 (>60) 12/17/24 05:17 Glucose 112 mg/dL (65-99) H 12/17/24 05:17 POC Glucose (mg/dL) 126 mg/dL (65-99) H 12/17/24 05:21 Calcium 9.3 mg/dL (8.5-10.1) 12/17/24 05:17 Corrected Calcium TNP 12/17/24 05:17 Total Bilirubin 0.90 mg/dL (0.2-1.0) 12/17/24 05:17 AST 20 Units/L (15-37) 12/17/24 05:17 ALT 19 Units/L (12-78) 12/17/24 05:17 Alkaline Phosphatase 69 Units/L (46-116) 12/17/24 05:17 B-Natriuretic Peptide 28.7 pg/mL (0-79) 12/16/24 12:40 Total Protein 7.0 g/dL (6.4-8.2) 12/17/24 05:17 Albumin 3.5 g/dL (3.4-5.0) 12/17/24 05:17 Globulin 3.5 g/dL (2.5-4.5) 12/17/24 05:17 Albumin/Globulin Ratio 1.0 Ratio (1.1-2.1) L 12/17/24 05:17 Amylase 99 Units/L (25-115) 12/17/24 05:17 Lipase 36 Units/L (16-77) 12/17/24 05:17 Specimen Type Clean catch urine 12/16/24 20:30 Urine Color Straw (YELLOW) 12/16/24 20:30 Urine Appearance Clear (CLEAR) 12/16/24 20:30 Urine pH 7.0 (5.0 - 8.0) 12/16/24 20:30 Ur Specific [place] 1.005 (1.000-1.030) 12/16/24 20:30 Urine Protein 1+ (NEGATIVE) 12/16/24 20:30 Urine Glucose (UA) Negative (NEGATIVE) 12/16/24 20:30 Urine Ketones Negative (NEGATIVE) 12/16/24 20:30 Urine Blood Negative (NEGATIVE) 12/16/24 20:30 Urine Nitrite Negative (NEGATIVE) 12/16/24 20: Urine Bilirubin Negative (NEGATIVE) 12/16/24 20:30 Urine Urobilinogen Normal (NORMAL) 12/16/24 20:30 Ur Leukocyte Esterase Negative (NEGATIVE) 12/16/24 20:30 Urine RBC None seen /HPF (0-3) 12/16/24 20: Urine WBC None seen /HPF (0-5) 12/16/24 20:30 Ur Squamous Epith Cells Rare /HPF (NEGATIVE) 12/16/24 20:30 Urine Bacteria Negative /HPF (NEGATIVE) 12/16/24 20:30 Ur Culture Indicated? No/not indicated 12/16/24 20:30 Assessment and Plan 1: Small incarcerated umbilical hernia containing fat, no bowel obstruction. To preserve, controlled the pain and follow-up as outpatient. Problem Patient Problems: Patient Problems Periumbilical abdominal pain (Acute) R10.33 Umbilical hernia (Acute) K42.9 Elevated amylase (Acute) R74.8
[2024-12-17] MEDS: K-DUR TAB 20 MEQ PO SCH (09:02)
[2024-12-17] MEDS: MAG-OX TAB PO SCH (09:03)
[2024-12-17] MEDS: LINZESS PO SCH (10:14)
--- NOTE | 2024-12-17 10:14 | DR.H&P ---
H&P History & Physical for Day of: H&P Date: 12/17/24 Chief Complaint Chief Complaint: abdominal pain History of Present Illness History of Present Illness: Ms Ramírez is a 69-year-old female with a past medical history of hypertension, hyperlipidemia, CAD, diabetes and GERD presented with worsening abdominal pain. She reports having abdominal pain in the umbilicus area. ER workup clued CTAP which showed fat-containing umbilical hernia and post cholecystectomy. Dr. King was consulted and patient was admitted for further management. Her other labs were fairly normal, magnesium was low, amylase was elevated. She is feeling better this morning. She states abdominal pain has improved. She was able to tolerate p.o. intake. Dr. King does not recommend any surgical intervention at this time. Lab/imaging reviewed: - WBC 5.5 hemoglobin 13.3 platelet 144 potassium 3.7 magnesium 1.7 creatinine 0.63 amylase and lipase normal - UA negative - CTAP reviewed Plan: Follow surgery recommendations, advance diet as tolerated. Continue hydration. Replace electrolytes as per protocol. Resume home medications. Patient's blood pressure was elevated yesterday, clonidine was added. Her blood pressure has improved due to not having so much abdominal pain. Will continue with home medications. Ambulate as tolerated. Monitor a.m. labs and imaging. Past Medical History Past Medical History: Coronary Artery Disease, Diabetes, Dyslipidemia, GERD, Hypertension and PUD Additional Medical History: Cataracts, Tinnitus, Ear Infections, Diverticulosis, Constipation Past Surgical History Surgical History: Angioplasty/Stents, Appendectomy, Cholecystectomy and Hysterectomy Additional Surgical History: Carpal Tunnel Right Arm Family History Family Medical History: Diabetes Mellitus and MD Social History Does patient currently use any type of tobacco product: No Have you used tobacco products in the last 12 months: No Type of Tobacco Use: None Does any household member use tobacco: No Alcohol Use: None Drug Use: None Medications Home Medications: Home Medications Medication Instructions Recorded Confirmed Type aspirin 81 mg tablet,delayed 81 mg PO QDAY 03/11/24 12/16/24 History release Allergies Allergies Allergy/AdvReac Type Severity Reaction Status Date / Time alcohol Allergy Unknown Verified 12/16/24 11:57 hydralazine Allergy Verified 12/16/24 11:57 shellfish derived Allergy Verified 12/16/24 11:57 Gabapentin AdvReac Intermediate Uncoded 12/16/24 11:57 Labs 12/17/24 05:17 12/17/24 05:17 Labs: Laboratory WBC 5.5 X10^3/uL (3.6-10.0) 12/17/24 05:17 RBC 4.41 X10^6/uL (3.5-5.4) 12/17/24 05:17 Hgb 13.3 g/dL (12.0-16.0) 12/17/24 05:17 Hct 39.5 % (36.0-47.0) 12/17/24 05:17 MCV 89.4 fL (80.0-100.0) 12/17/24 05:17 MCH 30.1 pg (27.0-34.0) 12/17/24 05:17 MCHC 33.6 g/dL (33.0-35.0) 12/17/24 05:17 RDW 13.8 % (11.6-16.5) 12/17/24 05:17 Plt Count 144 X10^3/uL (150.0-450.0) L 12/17/24 05:17 Plt Count Comment Decreased (ADEQUATE) A 12/17/24 05:17 MPV 8.9 fL (7.4-11.0) 12/17/24 05:17 Neut % (Auto) 42.2 % (42.0-75.0) 12/17/24 05:17 Lymph % (Auto) 43.7 % (21.0-51.0) 12/17/24 05:17 [place] % (Auto) 11.5 % (0.0-13.0) 12/17/24 05:17 Eos % (Auto) 2.3 % (0.9-2.9) 12/17/24 05:17 Baso % (Auto) 0.3 % (0.2-1.0) 12/17/24 05:17 Neut # (Auto) 2.3 x10^3/uL (2.2-4.8) 12/17/24 05:17 Lymph # (Auto) 2.4 X10^3/uL (1.3-2.9) 12/17/24 05:17 [place] # (Auto) 0.6 x10^3/uL (0.3-0.8) 12/17/24 05:17 Eos # (Auto) 0.1 x10^3/uL (0.0-0.2) 12/17/24 05:17 Baso # (Auto) 0.0 X10^3/uL (0.0-0.1) 12/17/24 05:17 Absolute Nucleated RBC 0.2 /100WBC 12/17/24 05:17 Plt Clumps, EDTA Few 12/17/24 05:17 Plt Morphology Comment Normal (NORMAL) 12/17/24 05:17 RBC Morphology Normal (NORMAL) 12/17/24 05:17 Sodium 141 mmol/L (136-145) 12/17/24 05:17 Corrected Sodium 141 mmol/L (136-145) 12/17/24 05:17 Potassium 3.7 mmol/L (3.5-5.1) 12/17/24 05:17 Chloride 105 mmol/L (98-107) 12/17/24 05:17 Carbon Dioxide 26.6 mmol/L (21-32) 12/17/24 05:17 BUN 11 mg/dL (7-18) 12/17/24 05:17 Creatinine 0.63 mg/dL (0.55-1.02) 12/17/24 05:17 Est GFR (MDRD) Af Amer > 60 (>60) 12/17/24 05:17 Est GFR (MDRD) Non-Af > 60 (>60) 12/17/24 05:17 Glucose 112 mg/dL (65-99) H 12/17/24 05:17 POC Glucose (mg/dL) 126 mg/dL (65-99) H 12/17/24 05:21 Calcium 9.3 mg/dL (8.5-10.1) 12/17/24 05:17 Corrected Calcium TNP 12/17/24 05:17 Magnesium 1.7 mg/dL (2.0-2.9) L 12/17/24 05:17 Total Bilirubin 0.90 mg/dL (0.2-1.0) 12/17/24 05:17 AST 20 Units/L (15-37) 12/17/24 05:17 ALT 19 Units/L (12-78) 12/17/24 05:17 Alkaline Phosphatase 69 Units/L (46-116) 12/17/24 05:17 B-Natriuretic Peptide 28.7 pg/mL (0-79) 12/16/24 12:40 Total Protein 7.0 g/dL (6.4-8.2) 12/17/24 05:17 Albumin 3.5 g/dL (3.4-5.0) 12/17/24 05:17 Globulin 3.5 g/dL (2.5-4.5) 12/17/24 05:17 Albumin/Globulin Ratio 1.0 Ratio (1.1-2.1) L 12/17/24 05:17 Amylase 99 Units/L (25-115) 12/17/24 05:17 Lipase 36 Units/L (16-77) 12/17/24 05:17 Specimen Type Clean catch urine 12/16/24 20:30 Urine Color Straw (YELLOW) 12/16/24 20:30 Urine Appearance Clear (CLEAR) 12/16/24 20:30 Urine pH 7.0 (5.0 - 8.0) 12/16/24 20:30 Ur Specific [place] 1.005 (1.000-1.030) 12/16/24 20:30 Urine Protein 1+ (NEGATIVE) 12/16/24 20:30 Urine Glucose (UA) Negative (NEGATIVE) 12/16/24 20:30 Urine Ketones Negative (NEGATIVE) 12/16/24 20:30 Urine Blood Negative (NEGATIVE) 12/16/24 20:30 Urine Nitrite Negative (NEGATIVE) 12/16/24 20:30 Urine Bilirubin Negative (NEGATIVE) 12/16/24 20:30 Urine Urobilinogen Normal (NORMAL) 12/16/24 20:30 Ur Leukocyte Esterase Negative (NEGATIVE) 12/16/24 20:30 Urine RBC None seen /HPF (0-3) 12/16/24 20:30 Urine WBC None seen /HPF (0-5) 12/16/24 20:30 Ur Squamous Epith Cells Rare /HPF (NEGATIVE) 12/16/24 20:30 Urine Bacteria Negative /HPF (NEGATIVE) 12/16/24 20:30 Ur Culture Indicated? No/not indicated 12/16/24 20:30 Review of Systems Constitutional: No Symptoms Reported Eyes: No Symptoms Reported ENT: No Symptoms Reported Respiratory: No Symptoms Reported Cardiovascular: No Symptoms Reported Gastrointestinal: Nausea and Abdominal Pain Genitourinary: No Symptoms Reported Musculoskeletal: No Symptoms Reported Skin: No Symptoms Reported Neurological: No Symptoms Reported Physical Exam Vital Signs: Vital Signs Temperature 97.5 F Temperature 98.2 F Pulse Rate [Brachial] 60 Pulse Rate [Brachial] 63 Respiratory Rate 17 Respiratory Rate 20 Blood Pressure [Left Arm] 138/67 Blood Pressure [Left Arm] 129/62 O2 Sat by Pulse Oximetry 99 O2 Sat by Pulse Oximetry 98 Oriented: Normal Throat: Normal Respiratory: Clear Throughout Cardiovascular: Normal Auscultation: Bowel Sounds: Normal Tenderness: Periumbilical and Mild Skin: Normal Musculoskeletal: Normal Psychiatric: Normal Mood Description: Calm Affect: Normal Speech Pattern: Clear and Appropriate Assessment/Plan (1) Periumbilical abdominal pain: Status: Acute (2) Umbilical hernia: Qualifiers: Obstruction and gangrene presence: without obstruction or gangrene Qualified Code(s): K42.9 - Umbilical hernia without obstruction or gangrene Status: Chronic (3) Elevated amylase: Status: Acute (4) CAD (coronary artery disease): Qualifiers: Coronary Disease-Associated Artery/Lesion type: unspecified vessel or lesion type [place] vs. transplanted heart: unspecified whether [place] or transplanted heart Associated angina: unspecified whether angina present Qualified Code(s): I25.10 - Atherosclerotic heart disease of [place] coronary artery without angina pectoris Status: Chronic (5) Hyperlipidemia: Qualifiers: Hyperlipidemia type: mixed hyperlipidemia Qualified Code(s): E78.2 - Mixed hyperlipidemia Status: Chronic (6) Hypomagnesemia: Status: Acute Review H&P Reviewed: Yes Patient was examined?: Yes
[2024-12-17] MEDS: NovoLIN R (or HumuLIN R) SUBCUT PRN (20:10)
[2024-12-18 06:00] LABS: BASOPHILS % (AUTO) 0.4 % (0.2-1.0); EOSINOPHILS # (AUTO) 0.1 x10^3/uL (0.0-0.2); EOSINOPHILS % (AUTO) 2.8 % (0.9-2.9); HEMATOCRIT 38.5 % (36.0-47.0); HEMOGLOBIN 12.9 g/dL (12.0-16.0); LYMPHOCYTES # (AUTO) 1.8 X10^3/uL (1.3-2.9); LYMPHOCYTES % (AUTO) 43.2 % (21.0-51.0); MEAN CORPUSCULAR HEMOGLOBIN 29.8 pg (27.0-34.0); MEAN CORPUSCULAR HGB CONC 33.5 g/dL (33.0-35.0); MEAN PLATELET VOLUME 8.4 fL (7.4-11.0); MONOCYTES # (AUTO) 0.5 x10^3/uL (0.3-0.8); MONOCYTES % (AUTO) 13.4 % (0.0-13.0); NEUTROPHILS # (AUTO) 1.6 x10^3/uL (2.2-4.8); NEUTROPHILS % (AUTO) 40.2 % (42.0-75.0); PLATELET COUNT 166 X10^3/uL (150.0-450.0); RED BLOOD COUNT 4.33 X10^6/uL (3.5-5.4); WHITE BLOOD COUNT 4.1 X10^3/uL (3.6-10.0)
[2024-12-18 06:17] LABS: ALANINE AMINOTRANSFERASE 19 Units/L (12-78); ALBUMIN 3.4 g/dL (3.4-5.0); ALKALINE PHOSPHATASE 62 Units/L (46-116); ASPARTATE AMINO TRANSFERASE 14 Units/L (15-37); BLOOD UREA NITROGEN 9 mg/dL (7-18); CALCIUM 8.9 mg/dL (8.5-10.1); CARBON DIOXIDE 29.7 mmol/L (21-32); CHLORIDE 108 mmol/L (98-107); GLUCOSE 106 mg/dL (65-99); MAGNESIUM 2.3 mg/dL (2.0-2.9); POTASSIUM 3.9 mmol/L (3.5-5.1); SODIUM 144 mmol/L (136-145); TOTAL PROTEIN 6.8 g/dL (6.4-8.2); eGFR NON BLACK RACES > 60 (>60)
[2024-12-18 10:41] VITALS: RESP 20
[2024-12-18 13:46] VITALS: BP 132/65; PULSE 63; TEMP 97.4; O2SAT 98
== END 2024-12-18 12:30 | disposition home or self-care (01) ==
LOC: ER 11:49 → MED/SURG 11:49
PROVIDERS: ADMIT Family Medicine; ATTEND Family Medicine